=== PATIENT | female | born 1930 | race Hispanic/Latino ===

== ENCOUNTER 2018-03-20 12:25 | Emergency (ER) | payer MEDICARE ==
[2018-03-20 12:26] VITALS: BMI 19.5
[2018-03-20 12:53] VITALS: O2SAT 99
--- NOTE | 2018-03-20 14:32 | RAD ---
Date of service: 03/20/2018 HISTORY: Back pain COMPARISON: Frontal chest radiograph 08/19/2016. FINDINGS: LUNGS: No active pulmonary disease. Trace fibrosis left base laterally again evident. PLEURA: No significant pleural effusion identified, no pneumothorax apparent. CARDIOVASCULAR: Stable mild cardiomegaly. No pulmonary vascular congestion. OSSEOUS STRUCTURES: No significant abnormalities. VISUALIZED UPPER ABDOMEN: Limited left hemidiaphragm elevation reiterated. OTHER FINDINGS: None. IMPRESSION: Stable mild cardiomegaly. No interval acute cardiopulmonary disease appreciated.
[2018-03-20 15:48] LABS: GRAN # 8.94 (1.4-6.5); GRAN % 95.3 % (50.0-68.0); LYMPH # 0.4 (1.2-3.4); MEAN CELL VOLUME 94.8 fl (80.0-105.0); MEAN CORPUSCULAR HEMOGLOBIN 31.3 pg (25.0-35.0); MEAN CORPUSCULAR HGB CONC 33.1 g/dl (31.0-37.0); MEAN PLATELET VOLUME 9.2 fl (7.0-11.0); MONO # 0.1 (0.1-0.6); MONO % 0.7 % (1.0-6.0); PLATELET COUNT 347 10^3/uL (120.0-450.0); RBC 3.83 10^6/uL (3.5-6.1); RED CELL DISTRIBUTION WIDTH 14.7 % (11.5-14.5); WHITE BLOOD COUNT 9.4 10^3/ul (4.5-11.0)
[2018-03-20 15:54] LABS: ALB/GLOB RATIO 1.6 (1.1-1.8); ALBUMIN 4.2 g/dL (3.0-4.8); CALCIUM 9.9 mg/dL (8.4-10.5)
[2018-03-20 16:09] LABS: INR 1.02; PARTIAL THROMBOPLASTIN TIME 23.8 Seconds (25.1-36.5); PROTHROMBIN TIME 11.6 SECONDS (9.4-12.5)
[2018-03-20 16:36] LABS: NEUTROPHIL 93 % (50.0-70.0)
[2018-03-20 16:37] LABS: ANISOCYTOSIS SLIGHT; LYMPHOCYTE 6 % (22.0-35.0); MONOCYTE 1 % (1.0-6.0); OVALOCYTES SLIGHT; PLATELET ESTIMATE NORMAL (NORMAL); TOXIC GRANULATION SLIGHT
--- NOTE | 2018-03-20 17:19 | CT ---
Date of service: 03/20/2018 PROCEDURE: CT Abdomen and Pelvis without intravenous contrast HISTORY: ABDOMINAL PAIN COMPARISON: 01/05/2015 TECHNIQUE: Without contrast.. Contrast dose: 0 Radiation dose: Total exam DLP = 505.46 mGy-cm. This CT exam was performed using one or more of the following dose reduction techniques: Automated exposure control, adjustment of the mA and/or kV according to patient size, and/or use of iterative reconstruction technique. FINDINGS: LOWER THORAX: Unremarkable. LIVER: Unremarkable. No gross lesion or ductal dilatation. GALLBLADDER AND BILE DUCTS: Dependent high attenuation material within the gallbladder may reflect small calculi. See CT so mural thickening. No pericholecystic fluid. PANCREAS: Unremarkable. No gross lesion or ductal dilatation. SPLEEN: Unremarkable. ADRENALS: Unremarkable. No mass. KIDNEYS AND URETERS: Unremarkable. No hydronephrosis. No solid mass. VASCULATURE: Unremarkable. No aortic aneurysm. BOWEL: Left lower quadrant colostomy. Partial left hemicolectomy. Diverticulosis of the superior rectum/sigmoid colon. No bowel obstruction. There is a small bowel anastomosis in the lateral most right abdomen. APPENDIX: Not identified. PERITONEUM: Unremarkable. No free fluid. No free air. LYMPH NODES: Unremarkable. No enlarged lymph nodes. BLADDER: Grossly limited due to beam hardening artifact arising from bilateral hip prostheses. REPRODUCTIVE: Postmenopausal uterus BONES: No acute fracture. OTHER FINDINGS: None. IMPRESSION: No acute abnormality. Partial left hemicolectomy with left lower quadrant colostomy. No bowel obstruction. Possible cholelithiasis without evidence of cholecystitis.
--- NOTE | 2018-03-20 17:44 | ED PDOC ---
Arrival/HPI - General Chief Complaint: Back Pain Time Seen by Provider: 03/20/18 13:05 Historian: Patient, Family - History of Present Illness Narrative History of Present Illness (Text): 03/20/18 18:07 87yr old female with right buttock pain x 4 days. pt states she has been having slight pain in the buttock, but worsened over the past 4 days. pt denies numbness, weakness or tingling in the extremities. Patient states that she only has pain if she is moving. Patient states when she lays down there is no pain. Patient states when she moves from a laying to sitting position she has pain. Patient states once she is in a sitting position there is no pain. Patient denies chest pain or shortness of breath. She denies abdominal pain. She denies nausea vomiting diarrhea or constipation. She denies upper back pain. Patients family member state they are concerned about the abdomen because last time she had right buttocks pain she had a perforated bowel. Patient states she is scheduled for an MRI of the lumbar spine today. Patient states yesterday she received pain injection into the right buttocks from her pain management doctor without improvement in her symptoms. pt denies any trauma or injury. pt denies bladder or bowel incontinence. pt denies numbness, weakness, tingling in the extremity. no other complaints. Time/Duration: Other (4 days) Symptom Onset: Gradual Symptom Course: Worsening Quality: Aching Severity Level: Moderate Context: Other (worse with movement) Past Medical History - Provider Review Nursing Documentation Reviewed: Yes - Travel History Have you recently traveled outside [place] w/in the past 3 mons?: No - Infectious Disease Hx of Infectious Diseases: None - Tetanus Immunization Tetanus Immunization: Unknown - Reproductive Menopause: Yes - Cardiac Hx Cardiac Disorders: Yes Hx Hypertension: Yes - Pulmonary Hx Respiratory Disorders: No - Neurological Hx Neurological Disorder: Yes (syncope) - HEENT Hx HEENT Disorder: No - Renal Hx Renal Disorder: No - Endocrine/Metabolic Hx Endocrine Disorders: Yes Hx Systemic Lupus Erythematosus: Yes - Hematological/Oncological Hx Blood Disorders: No - Integumentary Hx Dermatological Disorder: No - Musculoskeletal/Rheumatological Hx Musculoskeletal Disorders: Yes (rheumatoid arthritis) Hx Falls: Yes Hx Fractures: Yes (right humerus 4 wks ago) Hx Unsteady Gait: Yes - Gastrointestinal Hx Gastrointestinal Disorders: Yes (colostomy drains well post sbo) - Genitourinary/Gynecological Hx Genitourinary Disorders: No - Psychiatric Hx Psychophysiologic Disorder: No Hx Substance Use: No - Surgical History Other/Comment: b/lle hip replacement and left knee replacement 10 y ago, picc line in and out keerthi, small bowel resecton lysis of adhesions omentum patch gi lap 01/08/2015, ct scan guided drainage of sigmoid diverticular abcess - Anesthesia Hx Anesthesia: Yes Hx Anesthesia Reactions: No Hx Malignant Hyperthermia: No - Suicidal Assessment Feels Threatened In Home Enviroment: No Family/Social History - Physician Review Nursing Documentation Reviewed: Yes Family/Social History: Unknown Family HX Smoking Status: Never Smoked Hx Alcohol Use: No (occasional social) Hx Substance Use: No Hx Substance Use Treatment: No Allergies/Home Meds Allergies/Adverse Reactions: Allergies No Known Allergies Allergy (Verified 03/20/18 12:53) Home Medications: Home Meds Medication Instructions Recorded Confirmed Verapamil [Calan SR Tab] 90 mg PO DAILY 09/20/14 03/20/18 predniSONE [predniSONE Tab] 5 mg PO DAILY 07/16/16 03/20/18 Methotrexate 8 mg PO QWK 08/19/16 03/20/18 Review of Systems - Review of Systems Constitutional: absent: Fatigue, Fevers Respiratory: absent: SOB, Cough Cardiovascular: absent: Chest Pain, Palpitations Gastrointestinal: absent: Abdominal Pain, Constipation, Diarrhea, Nausea, Vomiting Genitourinary Female: absent: Dysuria, Frequency, Hematuria, Urine Output Changes Musculoskeletal: Arthralgias (right buttock pain), Back Pain. absent: Neck Pain Skin: absent: Rash, Pruritis Neurological: absent: Headache, Dizziness Psychiatric: absent: Anxiety, Depression Physical Exam Vital Signs Reviewed: Yes Vital Signs Temp Pulse Resp BP Pulse Ox 03/20/18 18:05 98.9 F 93 H 19 99 03/20/18 16:10 98.9 F 98 H 18 134/82 99 03/20/18 12:50 99.4 F 92 H 18 148/75 99 Temperature: Afebrile Blood Pressure: Normal Pulse: Regular Respiratory Rate: Normal Appearance: Positive for: Well-Appearing, Non-Toxic, Comfortable Pain Distress: None Mental Status: Positive for: Alert and Oriented X 3 - Systems Exam Head: Present: Atraumatic Mouth: Present: Moist Mucous Membranes Neck: Present: Normal Range of Motion Respiratory/Chest: Present: Clear to Auscultation, Good Air Exchange. No: Respiratory Distress, Accessory Muscle Use Cardiovascular: Present: Regular Rate and Rhythm, Normal S1, S2. No: Murmurs Abdomen: No: Tenderness, Distention, Rebound, Guarding Back: Present: Normal Inspection, Other (+ ttp over right buttock; no edema, no erythema; no ecchymosis; full rom of hip/leg. pelvis stable. ). No: Midline Tenderness, Paraspinal Tenderness Upper Extremity: Present: Normal ROM Lower Extremity: Present: NORMAL PULSES, Normal ROM, Tenderness (+ ttp over right buttock. no edema. no erythema. no ecchymosis; full rom. sensation and distal pulses intact; cap refill <2. ) Medical Decision Making ED Course and Treatment: 87 yr old female with 4 day history of right buttock pain. pt was seen by pain management doctor and given referral for MRI of LS spine. presents with family concern for abdominal abnormality causing pain. cbc;wnl cmp wnl cxr; wnl CT abd/pelvis; FINDINGS: LOWER THORAX: Unremarkable. LIVER: Unremarkable. No gross lesion or ductal dilatation. GALLBLADDER AND BILE DUCTS: Dependent high attenuation material within the gallbladder may reflect small calculi. See CT so mural thickening. No pericholecystic fluid. PANCREAS: Unremarkable. No gross lesion or ductal dilatation. SPLEEN: Unremarkable. ADRENALS: Unremarkable. No mass. KIDNEYS AND URETERS: Unremarkable. No hydronephrosis. No solid mass. VASCULATURE: Unremarkable. No aortic aneurysm. BOWEL: Left lower quadrant colostomy. Partial left hemicolectomy. Diverticulosis of the superior rectum/sigmoid colon. No bowel obstruction. There is a small bowel anastomosis in the lateral most right abdomen. APPENDIX: Not identified. PERITONEUM: Unremarkable. No free fluid. No free air. LYMPH NODES: Unremarkable. No enlarged lymph nodes. BLADDER: Grossly limited due to beam hardening artifact arising from bilateral hip prostheses. REPRODUCTIVE: Postmenopausal uterus BONES: no acute fracture. OTHER FINDINGS: None. IMPRESSION: No acute abnormality. Partial left hemicolectomy with left lower quadrant colostomy. No bowel obstruction. Possible cholelithiasis without evidence of cholecystitis. pt does not want any medications for pain. pt states she doesnt have pain unless she changes position. pt does not want to wait in ER for UA results. will d/c home and call patient with urine results. advised patient to f/u with pmd, pain management and orthopedist. advised immediate return if symptoms worsen, persist or if new symptoms develop. advised patient of gallstones on CT. Patient verbalizes understanding of discharge instructions and need for immediate followup. all aspects of this case were discussed the attending of record. impression; buttock pain, back pain Follow up with the primary care physician within the next 2 days follow up with the back specialist within the next 2 days. return immediately if symptoms worsen,persist or if new symptoms develop. 03/20/18 18:18 spoke with the patients daughter regarding UA: concerning for possible UTI. rx for keflex transmitted electronically to pharmacy. also advised f/u with orthopedist for right buttock pain. consider screws as cause of buttock pain. - Lab Interpretations Lab Results: 03/20/18 15:37 03/20/18 15:37 Lab Results 03/20/18 17:42: Urine Color Yellow, Urine Appearance Clear, Urine pH 6.0, Ur Specific [place] 1.010, Urine Protein Negative, Urine Glucose (UA) Negative, Urine Ketones Trace H, Urine Blood Negative, Urine Nitrate Negative, Urine Bilirubin Negative, Urine Urobilinogen 0.2, Ur Leukocyte Esterase Trace H, Urine RBC 0 - 2, Urine WBC 2 - 5, Ur Epithelial Cells 3 - 4, Urine Bacteria Mod 03/20/18 15:37: WBC 9.4 D, RBC 3.83, Hgb 12.0, Hct 36.3, MCV 94.8, MCH 31.3, MCHC 33.1, RDW 14.7 H, Plt Count 347, MPV 9.2, Gran % 95.3 H, Lymph % (Auto) 4.0 L, Pierce % (Auto) 0.7 L, Eos % (Auto) 0.0 L, Baso % (Auto) 0.0, Gran # 8.94 H , Lymph # (Auto) 0.4 L, Pierce # (Auto) 0.1, Eos # (Auto) 0.0, Baso # (Auto) 0.00 , Neutrophils % (Manual) 93 H, Lymphocytes % (Manual) 6 L, Monocytes % (Manual) 1, Toxic Granulation Slight, Platelet Evaluation Normal, Anisocytosis (manual) Slight, Ovalocytes Slight 03/20/18 15:37: Sodium 143, Potassium 4.2, Chloride 105, Carbon Dioxide 24, Anion Gap 18, BUN 38 H, Creatinine 1.2, Est GFR ( Amer) 52, Est GFR (Non- Af Amer) 43, Random Glucose 98, Calcium 9.9, Total Bilirubin 0.9, AST 32, ALT 25 , Alkaline Phosphatase 61, Total Protein 6.7, Albumin 4.2, Globulin 2.6, Albumin /Globulin Ratio 1.6 03/20/18 15:37: PT 11.6, INR 1.02, APTT 23.8 L - RAD Interpretation Radiology Orders: 03/20/18 13:31 CHEST PORTABLE [RAD] Stat 03/20/18 16:06 ABD & PELVIS W/O PO OR IV CONT [CT] Stat Disposition/Present on Arrival - Present on Arrival Any Indicators Present on Arrival: No History of DVT/PE: No History of Uncontrolled Diabetes: No Urinary Catheter: No History of Decub. Ulcer: No History Surgical Site Infection Following: None - Disposition Have Diagnosis and Disposition been Completed?: Yes Diagnosis: Right buttock pain, Back pain Disposition: HOME/ ROUTINE Disposition Time: 17:43 Patient Plan: Discharge Patient Problems: Current Active Problems Problem Status Onset Right buttock pain Acute Back pain Acute Condition: GOOD Discharge Instructions (ExitCare): Low Back Pain (DC) Additional Instructions: Follow up with the primary care physician within the next 2 days follow up with the back specialist within the next 2 days. return immediately if symptoms worsen,persist or if new symptoms develop. Prescriptions: Cephalexin [Keflex] 500 mg PO BID #14 capsule Referrals: Nehemias Cai MD [Primary Care Provider] - Follow up with primary Omid Hoyos MD [Staff Provider] - Follow up with primary Sudarshan Arevalo MD [Staff Provider] - Follow up with primary Forms: [employer] (Vietnamese)
[2018-03-20 17:51] LABS: URINE BILIRUBIN NEGATIVE (NEGATIVE); URINE BLOOD NEGATIVE (NEGATIVE); URINE GLUCOSE (UA) NEGATIVE (NEGATIVE); URINE LEUKOCYTE ESTERASE TRACE Leu/uL (NEGATIVE); URINE PROTEIN NEGATIVE mg/dL (<30 mg/dL); URINE UROBILINOGEN 0.2 E.U./dL (<1 E.U./dL)
[2018-03-20 17:54] LABS: URINE COLOR YELLOW (YELLOW)
[2018-03-20 17:55] LABS: URINE APPEARANCE CLEAR (CLEAR)
[2018-03-20 18:03] LABS: URINE BACTERIA MOD (NEG); URINE RBC 0 - 2 /hpf (0-2)
[2018-03-20 18:06] VITALS: BP 134/82; PULSE 93; RESP 19; TEMP 98.9
--- NOTE | 2018-03-21 10:18 | CARD ---
APPROVED REPORT Date of service: 03/20/2018 EKG Measurement Heart [id number] <Conclusion> Sinus bradycardia Nonspecific ST and T wave abnormality Abnormal ECG
== END 2018-03-20 18:06 | disposition home or self-care (01) ==
LOC: ED 12:25
DX: M54.9 Dorsalgia, unspecified (principal); M79.1 Myalgia; I10 Essential (primary) hypertension; M06.9 Rheumatoid arthritis, unspecified; M32.9 Systemic lupus erythematosus, unspecified

== ENCOUNTER 2018-04-03 15:18 | Inpatient (IN) | payer OTHER, MEDICARE ==
[2018-03-31 15:28] VITALS: BMI 19.7
[2018-04-03] MEDS ORDERED: Pneumococcal 23-Valent Vaccine IM ONE (21:21)
[2018-04-04] MEDS: Pantoprazole 40 mg EC Tab PO SCH (06:00)
--- NOTE | 2018-04-04 09:13 | HP ---
CHIEF COMPLAINT AND HISTORY OF PRESENT ILLNESS: This is an 87-year-old female who had come into the hospital because of acute back pain. The patient does have a history of DJD with multilevel disk herniations. She also has arthritis secondary to rheumatoid and lupus. The patient states that she has difficulty ambulating because of the pain. She was brought into the Transitional Care Unit for rehab. She has not been complaining of any headache or dizziness. No nausea. No vomiting. She has no pain when she is lying in bed, but she does have pain when she walks. It is about 4-5/10. She otherwise feels well. Has no complaints of any headaches or dizziness. REVIEW OF SYSTEMS: All other review of symptoms are within normal limits except that was mentioned. PAST MEDICAL HISTORY: Hypertension, lupus, rheumatoid arthritis, and falls. PAST SURGICAL HISTORY: Bilateral hip replacements, left knee replacement, and small bowel obstruction. ALLERGIES: NO KNOWN DRUG ALLERGIES. HOME MEDICATIONS: Have been reviewed on the SEP. PHYSICAL EXAMINATION: VITAL SIGNS: Temperature is 98.4, pulse of 47, blood pressure is 122/68. GENERAL: The patient lying in bed, uncomfortable, and in no acute distress. HEENT: Atraumatic and normocephalic. Anicteric sclerae. Moist mucosa. [place] conjunctivae. No oral lesions. NECK: No JVD, anterior and posterior adenopathy, thyromegaly, or bruits. CARDIOVASCULAR: S1 and S2 regular. No murmur, rubs, or gallop. LUNGS: Clear to auscultation bilaterally. No wheezes, rales, or rhonchi. ABDOMEN: Bowel sounds are positive. Soft, nontender and nondistended. No hepatosplenomegaly. No rebound and no guarding. EXTREMITIES: No cyanosis, clubbing, or edema. NEUROLOGIC: No facial asymmetry. Tongue is midline. No uvula deviation. Power is 5/5 upper extremity and lower extremity. Sensation intact in upper extremity and lower extremity. PSYCHIATRIC: She is awake, alert and oriented x3. No anxiety or depression. She has normal affect. GENITOURINARY: No CVA tenderness. VASCULAR: 2+ pulses in the carotid pulses and pedal pulses. SKIN: No erythema or nodules SPINE: Shows normal curvature. ASSESSMENT: 1. Acute back pain secondary to degenerative joint disease. 2. Rheumatoid arthritis. 3. Lupus. 4. Osteoarthritis. 5. Gait dysfunction. 6. Hypertension. PLAN: The patient is currently comfortable. She is going to be on Colace for constipation. She is currently on Lyrica for neuropathy. The patient is on ibuprofen for pain. She is going to be on prednisone daily, this is on chronic. She is on a heart-healthy diet. We will also place her on calcium and vitamin D to prevent the risk of osteoporosis given that she is on chronic prednisone. She is going to be in the Transitional Care Unit for next week, getting physical therapy. Sai Ham MD
[2018-04-04] MEDS: Verapamil 180 mg ER Tab PO SCH (09:30)
[2018-04-04] MEDS: Lidocaine 5% Patch TD SCH (09:31)
[2018-04-04] MEDS: Calcium-Vit D 250 mg-125 Units Tab UD PO SCH (10:36)
[2018-04-05] MEDS: Pantoprazole 40 mg EC Tab PO SCH (05:11)
[2018-04-05] MEDS: Calcium-Vit D 250 mg-125 Units Tab UD PO SCH (09:26)
[2018-04-05] MEDS: Verapamil 180 mg ER Tab PO SCH (09:27)
[2018-04-05] MEDS: Lidocaine 5% Patch TD SCH (09:28)
[2018-04-06] MEDS: Pantoprazole 40 mg EC Tab PO SCH (05:29)
[2018-04-06] MEDS: Verapamil 180 mg ER Tab PO SCH ×3 (06:50→11:00)
--- NOTE | 2018-04-06 08:55 | PN ---
DATE: 04/06/2018 SUBJECTIVE: The patient has no complaints of any chest pain. No headaches or dizziness. She says she is working with physical therapy. She does get pain when she starts to walk, although it is tolerable. PHYSICAL EXAMINATION: VITAL SIGNS: Temperature is 97.5, pulse of 57, blood pressure 133/65. GENERAL: The patient is lying in bed, flat, comfortable. HEENT: No oral lesion. Anicteric sclerae. Moist mucosa. NECK: No JVD, adenopathy, or thyromegaly. CARDIOVASCULAR: S1 and S2, regular. No murmurs, rubs, or gallops. LUNGS: Clear to auscultation bilaterally. No wheeze, rales, or rhonchi. ABDOMEN: Bowel sounds are positive, soft, nontender and nondistended. EXTREMITIES: No cyanosis, clubbing, or edema. ASSESSMENT: 1. Acute back pain secondary to degenerative joint disease. 2. Rheumatoid arthritis. 3. Lupus. 4. Osteoarthritis. 5. Gait dysfunction. 6. Hypertension. PLAN: The patient is currently comfortable. She is going to continue verapamil. The patient is on lidocaine for her back pain. She is on Lyrica as well. She is going to continue Motrin as needed for pain. She is on prednisone daily. She is on Senokot for her constipation. We will also have her on calcium with vitamin D for her osteoporosis. She is on a heart-healthy diet. Sai Ham MD
[2018-04-06] MEDS: Calcium-Vit D 250 mg-125 Units Tab UD PO SCH (10:08)
[2018-04-06] MEDS: Lidocaine 5% Patch TD SCH (10:09)
[2018-04-06 16:14] VITALS: RESP 18
[2018-04-07] MEDS: Pantoprazole 40 mg EC Tab PO SCH (05:41)
[2018-04-07] MEDS: Verapamil 180 mg ER Tab PO SCH ×2 (05:42→17:19)
[2018-04-07] MEDS: Lidocaine 5% Patch TD SCH (09:40)
[2018-04-07] MEDS: Calcium-Vit D 250 mg-125 Units Tab UD PO SCH (09:41)
[2018-04-08] MEDS: Pantoprazole 40 mg EC Tab PO SCH (05:33)
[2018-04-08] MEDS: Calcium-Vit D 250 mg-125 Units Tab UD PO SCH (10:41)
[2018-04-08] MEDS: Verapamil 180 mg ER Tab PO SCH (10:44)
[2018-04-08] MEDS: Lidocaine 5% Patch TD SCH (10:49)
[2018-04-09] MEDS: Pantoprazole 40 mg EC Tab PO SCH (05:51)
[2018-04-09] MEDS: Verapamil 180 mg ER Tab PO SCH (09:43)
[2018-04-09] MEDS: Calcium-Vit D 250 mg-125 Units Tab UD PO SCH (09:48)
[2018-04-09] MEDS: Lidocaine 5% Patch TD SCH (09:50)
--- NOTE | 2018-04-09 14:30 | CP.PCM.PN ---
<Beau Taylor - Last Filed: 04/09/18 14:27> Subjective - Date & Time of Evaluation Date of Evaluation: 04/09/18 Time of Evaluation: 14:27 - Subjective Subjective: Patient seen and examined at bedside. Patient states she is doing well with no complaints. Denies chest pain, shortness of breath, nausea, vomiting, diarrhea, fever, chills. Objective - Vital Signs/Intake and Output Vital Signs (last 24 hours): Temp Pulse Resp BP Pulse Ox 98.3 F 50 L 18 127/67 96 04/08/18 16:00 04/09/18 09:43 04/08/18 16:00 04/09/18 09:43 04/08/18 16:00 - Medications Medications: Current Medications Calcium/Vitamin D (Oscal-D 250 Mg-125 Units Tab) 2 tab PO DAILY [facility] Last Admin: 04/09/18 09:48 Dose: 2 tab Docusate Sodium (Colace) 100 mg PO DAILY OG PRN Reason: Protocol Last Admin: 04/09/18 09:55 Dose: Not Given Ibuprofen (Motrin Tab) 600 mg PO Q6H PRN; Protocol PRN Reason: Pain, moderate (4-7) Last Admin: 04/09/18 10:16 Dose: 600 mg Lidocaine (Lidoderm) 1 ea TD DAILY OG PRN Reason: Protocol Last Admin: 04/09/18 09:50 Dose: 1 ea Lisinopril (Zestril) 10 mg PO DAILY OG Last Admin: 04/09/18 09:50 Dose: 10 mg Methotrexate (Methotrexate) 10 mg PO QWK OG Last Admin: 04/07/18 15:07 Dose: 10 mg Pantoprazole Sodium (Protonix Ec Tab) 40 mg PO 0600 OG PRN Reason: Protocol Last Admin: 04/09/18 05:51 Dose: 40 mg Prednisone (Prednisone Tab) 5 mg PO DAILY OG PRN Reason: Protocol Last Admin: 04/09/18 09:49 Dose: 5 mg Pregabalin (Lyrica) 50 mg PO HS OG PRN Reason: Protocol Last Admin: 04/08/18 21:39 Dose: 50 mg Sennosides (Senokot Tab) 8.6 mg PO DAILY OG PRN Reason: Protocol Last Admin: 04/09/18 09:49 Dose: 8.6 mg Verapamil HCl (Calan Sr Tab) 90 mg PO DAILY OG PRN Reason: Protocol Last Admin: 04/09/18 09:43 Dose: 90 mg - Constitutional Appears: Non-toxic, No Acute Distress - Head Exam Head Exam: ATRAUMATIC, NORMAL INSPECTION, NORMOCEPHALIC - ENT Exam ENT Exam: Mucous Membranes Moist - Respiratory Exam Respiratory Exam: Clear to Ausculation Bilateral, NORMAL BREATHING PATTERN - Cardiovascular Exam Cardiovascular Exam: RRR, +S1, +S2 - GI/Abdominal Exam GI & Abdominal Exam: Soft, Normal Bowel Sounds. absent: Tenderness - Extremities Exam Extremities Exam: Normal Inspection - Neurological Exam Neurological Exam: Alert, Awake, Oriented x3 - Psychiatric Exam Psychiatric exam: Normal Affect, Normal Mood - Skin Skin Exam: Intact, Normal Color, Warm Assessment and Plan - Assessment and Plan (Free Text) Plan: 1. Acute back pain secondary to degenerative joint disease 2. Rheumatoid arthritis 3. Lupus 4. Osteoarthritis 5. Gait dysfunction 6. Hypertension Patient is currently resting well with no complaints at this time. She is currently on methotrexate and prednisone for her rheumatoid and lupus. Patient is using Motrin for back pain. Patient will continue on her current medical regimen. We will continue to monitor closely. Brandon, PGY-3 <Sai Ham S - Last Filed: 04/09/18 20:29> Objective - Vital Signs/Intake and Output Vital Signs (last 24 hours): Temp Pulse Resp BP Pulse Ox 97.4 F L 54 L 18 108/56 L 96 04/09/18 16:00 04/09/18 16:00 04/09/18 16:00 04/09/18 16:00 04/09/18 16:00 - Medications Medications: Current Medications Calcium/Vitamin D (Oscal-D 250 Mg-125 Units Tab) 2 tab PO DAILY OG Last Admin: 04/09/18 09:48 Dose: 2 tab Docusate Sodium (Colace) 100 mg PO DAILY OG PRN Reason: Protocol Last Admin: 04/09/18 09:55 Dose: Not Given Ibuprofen (Motrin Tab) 600 mg PO Q6H PRN; Protocol PRN Reason: Pain, moderate (4-7) Last Admin: 04/09/18 10:16 Dose: 600 mg Lidocaine (Lidoderm) 1 ea TD DAILY OG PRN Reason: Protocol Last Admin: 04/09/18 09:50 Dose: 1 ea Lisinopril (Zestril) 10 mg PO DAILY OG Last Admin: 04/09/18 09:50 Dose: 10 mg Methotrexate (Methotrexate) 10 mg PO QWK OG Last Admin: 04/07/18 15:07 Dose: 10 mg Pantoprazole Sodium (Protonix Ec Tab) 40 mg PO 0600 OG PRN Reason: Protocol Last Admin: 04/09/18 05:51 Dose: 40 mg Prednisone (Prednisone Tab) 5 mg PO DAILY OG PRN Reason: Protocol Last Admin: 04/09/18 09:49 Dose: 5 mg Pregabalin (Lyrica) 50 mg PO HS OG PRN Reason: Protocol Last Admin: 04/08/18 21:39 Dose: 50 mg Sennosides (Senokot Tab) 8.6 mg PO DAILY OG PRN Reason: Protocol Last Admin: 04/09/18 09:49 Dose: 8.6 mg Verapamil HCl (Calan Sr Tab) 90 mg PO DAILY OG PRN Reason: Protocol Last Admin: 04/09/18 09:43 Dose: 90 mg Assessment and Plan - Assessment and Plan (Free Text) Plan: Pt seen and examined. I have reviewed the note of the medical territory manager and agree with it. I have discussed the assessment and plan with the resident. I have reviewed the patient's labs and medications. Pt with stable back pain. She states pain is controlled. She was restarted on methotrexate. She is interested going home in 1-2 days.
[2018-04-10] MEDS: Pantoprazole 40 mg EC Tab PO SCH (05:22)
[2018-04-10] MEDS: Verapamil 180 mg ER Tab PO SCH (08:10)
[2018-04-10] MEDS: Calcium-Vit D 250 mg-125 Units Tab UD PO SCH (10:07)
[2018-04-10] MEDS: Lidocaine 5% Patch TD SCH (10:14)
[2018-04-10 11:41] VITALS: BP 138/66; PULSE 66; TEMP 97.1; O2SAT 99
== END 2018-04-10 14:09 | disposition home or self-care (01) | DRG 552 ==
LOC: TRCU 15:18
PROVIDERS: ADMIT Internal Medicine Nephrology; ATTEND Internal Medicine Nephrology
PROC: F07Z9ZZ Gait Training/Functional Ambulation Treatment (ICD-10-PCS; principal; 2018-04-04)
PROC: F08Z4ZZ Home Management Treatment (ICD-10-PCS; 2018-04-04)
DX: M47.9 Spondylosis, unspecified (principal); R26.2 Difficulty in walking, not elsewhere classified; M32.9 Systemic lupus erythematosus, unspecified; I10 Essential (primary) hypertension; M06.9 Rheumatoid arthritis, unspecified; Z96.643 Presence of artificial hip joint, bilateral; Z96.652 Presence of left artificial knee joint; Z93.3 Colostomy status

== ENCOUNTER 2018-08-13 12:46 | Inpatient (IN) | payer MEDICARE ==
[2018-08-13 13:05] VITALS: BMI 21.0
[2018-08-13 14:09] LABS: BASO # 0.02 K/mm3 (0.0-2.0); BASO % 0.2 % (0.0-3.0); EOS % 0.1 % (1.5-5.0); GRAN # 10.78 (1.4-6.5); GRAN % 93.4 % (50.0-68.0); HEMOGLOBIN 12.1 g/dL (12.0-16.0); LYMPH # 0.5 (1.2-3.4); MEAN CELL VOLUME 95.4 fl (80.0-105.0); MEAN CORPUSCULAR HGB CONC 32.5 g/dl (31.0-37.0); MEAN PLATELET VOLUME 9.1 fl (7.0-11.0); MONO # 0.3 (0.1-0.6); MONO % 2.3 % (1.0-6.0); PLATELET COUNT 345 10^3/uL (120.0-450.0); RED CELL DISTRIBUTION WIDTH 14.9 % (11.5-14.5); WHITE BLOOD COUNT 11.5 10^3/uL (4.5-11.0)
[2018-08-13 14:15] LABS: ALB/GLOB RATIO 1.2 (1.1-1.8); ALBUMIN 3.7 g/dL (3.0-4.8); ALT/SGPT 21 U/L (7-56); AST/SGOT 24 U/L (14-36); BLOOD UREA NITROGEN 27 mg/dL (7-21); CALCIUM 9.6 mg/dL (8.4-10.5); GFR NON-AFRICAN AMERICAN 53; LIPASE 63 U/L (23-300)
[2018-08-13] MEDS: Sodium Chloride 0.9% 1,000 ML IV SCH ×2 (14:18→22:31)
[2018-08-13 14:27] LABS: LYMPHOCYTE 2 % (22.0-35.0); MONOCYTE 2 % (1.0-6.0); NEUTROPHIL 96 % (50.0-70.0); PLATELET ESTIMATE NORMAL (NORMAL)
[2018-08-13 14:35] LABS: PH,URINE 7.5 (4.7-8.0); URINE BILIRUBIN NEGATIVE (NEGATIVE); URINE BLOOD NEGATIVE (NEGATIVE); URINE GLUCOSE (UA) NEGATIVE (NEGATIVE); URINE LEUKOCYTE ESTERASE MODERATE Leu/uL (NEGATIVE); URINE PROTEIN 30 mg/dL (<30 mg/dL); URINE UROBILINOGEN 0.2 E.U./dL (<1 E.U./dL)
[2018-08-13 14:38] LABS: URINE COLOR YELLOW (YELLOW)
[2018-08-13 14:39] LABS: URINE APPEARANCE CLEAR (CLEAR)
[2018-08-13 14:52] LABS: URINE AMORPHOUS SEDIMENT FEW /hpf; URINE BACTERIA LARGE /hpf; URINE WBC 25 - 30 /hpf (0-6)
[2018-08-13] MEDS ORDERED: Iohexol 350 MG/100 ML VIAL ONE (15:25)
--- NOTE | 2018-08-13 16:36 | CT ---
Date of service: 08/13/2018 PROCEDURE: CT Abdomen and Pelvis with contrast HISTORY: lower abdominal pain COMPARISON: 03/20/2018 TECHNIQUE: Contrast dose: 100 cc of Omni 350 Radiation dose: Total exam DLP = 360.79 mGy-cm. This CT exam was performed using one or more of the following dose reduction techniques: Automated exposure control, adjustment of the mA and/or kV according to patient size, and/or use of iterative reconstruction technique. FINDINGS: LOWER THORAX: Unremarkable. LIVER: Unremarkable. No gross lesion or ductal dilatation. GALLBLADDER AND BILE DUCTS: Unremarkable. PANCREAS: Unremarkable. No gross lesion or ductal dilatation. SPLEEN: Unremarkable. ADRENALS: Unremarkable. No mass. KIDNEYS AND URETERS: Unremarkable. No hydronephrosis. No solid mass. VASCULATURE: Unremarkable. No aortic aneurysm. No aortic atherosclerotic calcification or mural plaque present. BOWEL: There is a colostomy in the left lower quadrant. A suture line can be seen in the sigmoid colon. There is a moderate amount of free fluid in the pelvis. The etiology of this is uncertain. There is no air within the collection to suggest abscess. It is unlikely that the fluid is from an ovarian cyst in this age group. Clinical correlation and follow-up is recommended. These findings were discussed with Dr. García. APPENDIX: Normal appendix. PERITONEUM: Unremarkable. No free fluid. No free air. LYMPH NODES: Unremarkable. No enlarged lymph nodes. BLADDER: The bladder is not visualized due to streak artifact from bilateral hip prostheses REPRODUCTIVE: Unremarkable. BONES: No acute fracture. OTHER FINDINGS: None. IMPRESSION: There is a colostomy in the left lower quadrant. A suture line can be seen in the sigmoid colon. There is a moderate amount of free fluid in the pelvis. The etiology of this is uncertain. There is no air within the collection to suggest abscess. It is unlikely that the fluid is from an ovarian cyst in this age group. Clinical correlation and follow-up is recommended.
[2018-08-13] MEDS ORDERED: Ciprofloxacin 400mg/200ml D5W 400 MG/200 ML BAG IVPB STA (17:11)
[2018-08-13] MEDS ORDERED: metroNIDAZOLE IV 500 mg/100 ml 500 MG/100 ML BAG IVPB STA (17:11)
--- NOTE | 2018-08-13 18:26 | CARD ---
APPROVED REPORT Date of service: 08/13/2018 EKG Measurement Heart [id number] <Conclusion> Normal sinus rhythm Nonspecific ST abnormality Abnormal ECG
--- NOTE | 2018-08-13 19:05 | ED PDOC ---
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 Pt notes a baseline diminished appetite but no acute change. Pt denies any recent travel, nausea, vomiting, diarrhea, blood in stool, blood in urine, black tarry stools, constipation, chest pain, fevers, cough, or any other complaints. PMD: Nehemias Vanessa Time/Duration: Other (Pt notes onset as the past several days) Symptom Onset: Sudden Symptom Course: Unchanged Activities at Onset: Light Past Medical History - Provider Review Nursing Documentation Reviewed: Yes - Infectious Disease Hx of Infectious Diseases: None - Tetanus Immunization Tetanus Immunization: Unknown - Cardiac Hx Cardiac Disorders: Yes Hx Hypertension: Yes - Pulmonary Hx Respiratory Disorders: No - Neurological Hx Neurological Disorder: Yes (syncope) - HEENT Hx HEENT Disorder: No - Renal Hx Renal Disorder: No - Endocrine/Metabolic Hx Endocrine Disorders: Yes Hx Systemic Lupus Erythematosus: Yes - Hematological/Oncological Hx Blood Disorders: Yes Hx Anemia: Yes - Integumentary Hx Dermatological Disorder: Yes Other/Comment: multiple skin discolorations ble - Musculoskeletal/Rheumatological Hx Arthritis: Yes Hx Rheumatoid Arthritis: Yes - Gastrointestinal Hx Gastrointestinal Disorders: Yes (BOWEL OBSTRUCTION,RECTAL BLEED,DIVERTICULITIS,COLOSTOMY) - Genitourinary/Gynecological Hx Genitourinary Disorders: Yes (URINARY URGENCY) - Psychiatric Hx Psychophysiologic Disorder: No Hx Substance Use: No - Surgical History Other/Comment: b/le hip replacement and left knee replacement , picc line in and out keerthi, small bowel resecton lysis of adhesions omentum patch gi lap 01/08/2015, ct scan guided drainage of sigmoid diverticular abcess - Anesthesia Hx Anesthesia: Yes Hx Anesthesia Reactions: No Hx Malignant Hyperthermia: No - Suicidal Assessment Feels Threatened In Home Enviroment: No Family/Social History - Physician Review Nursing Documentation Reviewed: Yes Family/Social History: No Known Family HX Smoking Status: Never Smoked Hx Alcohol Use: Yes Frequency of alcohol use: Socially Hx Substance Use: No Hx Substance Use Treatment: No Allergies/Home Meds Allergies/Adverse Reactions: Allergies No Known Allergies Allergy (Verified 08/13/18 17:45) Home Medications: Home Meds Medication Instructions Recorded Confirmed Verapamil [Calan SR Tab] 90 mg PO DAILY 09/20/14 08/13/18 predniSONE [predniSONE Tab] 5 mg PO DAILY 07/16/16 08/13/18 Methotrexate 8 mg PO QWK 08/19/16 08/13/18 Review of Systems - Physician Review All systems were reviewed & negative as marked: Yes - Review of Systems Constitutional: Normal. absent: Fevers Respiratory: Normal. absent: Cough Gastrointestinal: Abdominal Pain (pt notes lower abdominal pain ), Appetite Changes (pt notes a baseline diminished appetite, but no acute change). absent: Normal, Stool Changes, Constipation, Diarrhea, Nausea, Vomiting Physical Exam Vital Signs Reviewed: Yes Vital Signs Temp Pulse Resp BP Pulse Ox 08/13/18 18:12 78 20 137/60 96 08/13/18 16:50 98.4 F 94 H 18 137/71 97 08/13/18 13:03 98.2 F 93 H 18 135/76 96 Temperature: Afebrile Blood Pressure: Normal Pulse: Tachycardic Appearance: Positive for: Well-Appearing, Non-Toxic Pain Distress: Mild Mental Status: Positive for: Alert and Oriented X 3 - Systems Exam Head: Present: Atraumatic, Normocephalic Pupils: Present: PERRL Extroacular Muscles: Present: EOMI Conjunctiva: Present: Normal Ears: Present: Normal, NORMAL TM Mouth: Present: Moist Mucous Membranes Neck: Present: Normal Range of Motion Respiratory/Chest: Present: Clear to Auscultation, Good Air Exchange. No: Respiratory Distress, Accessory Muscle Use Cardiovascular: Present: Regular Rate and Rhythm, Normal S1, S2. No: Murmurs Abdomen: Present: Tenderness (lower abdominal tenderness noted ), Normal Bowel Sounds, Other (left side colostomy noted, no skin breakdown, trace BM in the bag). No: Distention Back: Present: Normal Inspection Upper Extremity: Present: Normal Inspection. No: Cyanosis, Edema Lower Extremity: Present: Normal Inspection. No: Edema Neurological: Present: GCS=15, CN II-XII Intact, Speech Normal Skin: Present: Warm, Dry, Normal Color. No: Rashes Psychiatric: Present: Alert, Oriented x 3, Normal Insight, Normal Concentration Medical Decision Making ED Course and Treatment: 08/13/18 13:25 Impression: 88 year old female presents to the emergency department for lower abdominal pain, increasing in severity over the past several days. Differential Diagnosis included but are not limited to: Plan: -- CT of Abdomen & Pelvis, IV contrast only -- EKG -- Labs -- IV fluids -- Urine culture -- Urinalysis w/micro -- Reassess and disposition Prior Visits: Notes and results from previous visits were reviewed. Patient was last seen in the emergency department on 03/31/18 for intractable back pain for 15 days prior to arrival. Pt was hospitalized in fair condition. Progress Notes: 08/13/[address] Ham, reviewed case including findings on CAT scan. Pt admitted for IV antibiotics. Surgical consult ordered. - Lab Interpretations Lab Results: Total Bilirubin 0.8 mg/dL (0.2-1.3) 08/13/18 13:50 AST 24 U/L (14-36) 08/13/18 13:50 ALT 21 U/L (7-56) 08/13/18 13:50 Alkaline Phosphatase 68 U/L (38-126) 08/13/18 13:50 Total Protein 6.7 g/dL (5.8-8.3) 08/13/18 13:50 Albumin 3.7 g/dL (3.0-4.8) 08/13/18 13:50 Globulin 3.0 gm/dL 08/13/18 13:50 Albumin/Globulin Ratio 1.2 (1.1-1.8) 08/13/18 13:50 Lipase 63 U/L (23-300) 08/13/18 13:50 Urine Color Yellow (YELLOW) 08/13/18 14:00 Urine Appearance Clear (CLEAR) 08/13/18 14:00 Urine pH 7.5 (4.7-8.0) 08/13/18 14:00 Ur Specific [place] 1.020 (1.005-1.035) 08/13/18 14:00 Urine Protein 30 mg/dL (<30 mg/dL) H 08/13/18 14:00 Urine Glucose (UA) Negative mg/dL (NEGATIVE) 08/13/18 14:00 Urine Ketones Trace mg/dL (NEGATIVE) H 08/13/18 14:00 Urine Blood Negative (NEGATIVE) 08/13/18 14:00 Urine Nitrate Negative (NEGATIVE) 08/13/18 14:00 Urine Bilirubin Negative (NEGATIVE) 08/13/18 14:00 Urine Urobilinogen 0.2 E.U./dL (<1 E.U./dL) 08/13/18 14:00 Ur Leukocyte Esterase Moderate [place]/uL (NEGATIVE) H 08/13/18 14:00 Urine RBC 1 - 3 /hpf (0-2) H 08/13/18 14:00 Urine WBC 25 - 30 /hpf (0-6) H 08/13/18 14:00 Ur Epithelial Cells 3 - 4 /hpf (0-5) 08/13/18 14:00 Amorphous Sediment Few /hpf (NONE) 08/13/18 14:00 Urine Bacteria Large /hpf (NONE) 08/13/18 14:00 Urine Other Uyeast /hpf 08/13/18 14:00 - RAD Interpretation Narrative RAD Interpretations (Text): CT of Abdomen & Pelvis reviewed by radiologist, shows: Dictated By: Adrián Carpenter MD Dictated Date/Time: 08/13/18 16:32 Impression: There is a colostomy in the left lower quadrant. A suture line can be seen in the sigmoid colon. there is a moderate amount of free fluid in the pelvis. The etiology of this is uncertain. There is no air within the collection to suggest abscess. It is unlikely that the fluid is from an ovarian cyst in this age group. Clinical correlation and follow-up is recommended. 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 - Medication Orders Current Medication Orders: Sodium Chloride (Sodium Chloride 0.9%) 1,000 mls @ 100 mls/hr IV .Q10H OG Last Admin: 08/13/18 14:18 Dose: 100 mls/hr eMAR Start Stop Document 08/13/18 14:18 JOSE EDUARDO (Rec: 08/13/18 14:18 JOSE EDUARDO [id number]) Intravenous Solution Start Date 08/13/18 Start Time 14:18 Discontinued Medications Ciprofloxacin (Cipro 400mg/200ml Dsw) 400 mg in 200 mls @ 133.3 mls/hr IVPB STAT STA; Protocol Stop: 08/13/18 18:41 Last Admin: 08/13/18 18:01 Dose: 133.3 mls/hr eMAR Start Stop Document 08/13/18 18:01 SZA (Rec: 08/13/18 18:02 SZA [id number]) Intravenous Solution Start Date 08/13/18 Start Time 18:02 End Date 08/13/18 End time 19:36 Total Infusion Time 94 Metronidazole (Flagyl) 500 mg in 100 mls @ 100 mls/hr IVPB STAT STA; Protocol Stop: 08/13/18 18:10 Last Admin: 08/13/18 17:33 Dose: 100 mls/hr eMAR Start Stop Document 08/13/18 17:33 SZA (Rec: 08/13/18 17:34 SZA [id number]) Intravenous Solution Start Date 08/13/18 Start Time 17:34 End Date 08/13/18 End time 18:04 Total Infusion Time 30 - Scribe Statement The provider has reviewed the documentation as recorded by the Scribe Jovanna Carnes All medical record entries made by the Scribe were at my direction and personally dictated by me. I have reviewed the chart and agree that the record accurately reflects my personal performance of the history, physical exam, medical decision making, and the department course for this patient. I have also personally directed, reviewed, and agree with the discharge instructions and disposition. Disposition/Present on Arrival - Present on Arrival Any Indicators Present on Arrival: No History of DVT/PE: No History of Uncontrolled Diabetes: No Urinary Catheter: No History of Decub. Ulcer: No History Surgical Site Infection Following: None - Disposition Have Diagnosis and Disposition been Completed?: Yes Diagnosis: Abdominal pain, UTI (urinary tract infection) Disposition: HOSPITALIZED Disposition Time: 17:00 Condition: FAIR
[2018-08-13] MEDS ORDERED: Influenza Vaccine 60 mcg/0.5 mL SYR (4YR UP) IM ONE (22:18)
[2018-08-13] MEDS ORDERED: Pneumococcal 23-Valent Vaccine IM ONE (22:18)
--- NOTE | 2018-08-14 05:12 | CP.PCM.CON ---
History of Present Illness - History of Present Illness History of Present Illness: Surgery 84 years old female with history of Carlos for diverticulitis in 2015 and Rheumatoid arthritis came w low abd pain. Pain is worsen with moving and started yesterday. Denies fever, nausea, vomiting, stoma working. CT was taken and shows pelvic fluids. Pt hasn't got colonoscopy done. Pt doesnt want to get stoma reversed at this time and doesn't want any further surgery. Pt wishes to go home. PSH carlos for perforated diverticulitis 2014, SB resection for SBO 2014 PMH: Rheumatoid arthritis, Colonic abscess, back pain Allergy: NKDA Social History: Does not smoke, drink or use drugs. Patient was able to do ADL's and IADL's on [place] prior to coming to hospital. Family History: Not significant Review of Systems - Constitutional Constitutional: absent: Chills, Fever Past Patient History - Infectious Disease Hx of Infectious Diseases: None - Tetanus Immunizations Tetanus Immunization: Unknown - Past Social History Smoking Status: Former Smoker - CARDIAC Hx Cardiac Disorders: Yes Hx Hypertension: Yes - PULMONARY Hx Respiratory Disorders: No - NEUROLOGICAL Hx Neurological Disorder: Yes (syncope) - HEENT Hx HEENT Problems: No - RENAL Hx Chronic Kidney Disease: No - ENDOCRINE/METABOLIC Hx Endocrine Disorders: Yes Hx Systemic Lupus Erythematosus: Yes - HEMATOLOGICAL/ONCOLOGICAL Hx Blood Disorders: Yes Hx Anemia: Yes - INTEGUMENTARY Hx Dermatological Problems: Yes Other/Comment: multiple skin discolorations ble - MUSCULOSKELETAL/RHEUMATOLOGICAL Hx Musculoskeletal Disorders: Yes Hx Arthritis: Yes Hx Falls: Yes - GASTROINTESTINAL Hx Gastrointestinal Disorders: Yes (BOWEL OBSTRUCTION,RECTAL BLEED,DIVERTICULITIS,COLOSTOMY LLQ) - GENITOURINARY/GYNECOLOGICAL Hx Genitourinary Disorders: Yes (URINARY URGENCY) - PSYCHIATRIC Hx Psychophysiologic Disorder: No Hx Substance Use: No - SURGICAL HISTORY Other/Comment: b/le hip replacement and left knee replacement , picc line in and out keerthi, small bowel resecton lysis of adhesions omentum patch gi lap 01/08/2015, ct scan guided drainage of sigmoid diverticular abcess - ANESTHESIA Hx Anesthesia: Yes Hx Anesthesia Reactions: No Hx Malignant Hyperthermia: No Meds Allergies/Adverse Reactions: Allergies Allergy/AdvReac Type Severity Reaction Status Date / Time No Known Allergies Allergy Verified 08/13/18 17:45 - Medications Medications: Current Medications Sodium Chloride (Sodium Chloride 0.9%) 1,000 mls @ 100 mls/hr IV .Q10H OG Last Admin: 08/13/18 22:31 Dose: 100 mls/hr Physical Exam - Constitutional Appears: No Acute Distress - Head Exam Head Exam: ATRAUMATIC, NORMAL INSPECTION, NORMOCEPHALIC - Eye Exam Eye Exam: EOMI, Normal appearance, PERRL Pupil Exam: NORMAL ACCOMODATION, PERRL - ENT Exam ENT Exam: Mucous Membranes Moist, Normal Exam - Neck Exam Neck exam: Positive for: Normal Inspection - Respiratory Exam Respiratory Exam: NORMAL BREATHING PATTERN - Cardiovascular Exam Cardiovascular Exam: REGULAR RHYTHM - GI/Abdominal Exam GI & Abdominal Exam: Soft, Tenderness. absent: Distended, Firm, Guarding, Hernia, Rigid Additional comments: stoma in place. patent. pink - Exam Exam: NORMAL INSPECTION - Extremities Exam Extremities exam: Positive for: normal inspection. Negative for: full ROM, tenderness - Back Exam Back exam: NORMAL INSPECTION - Neurological Exam Neurological exam: Alert, CN II-XII Intact, Normal Gait, Oriented x3, Reflexes Normal - Psychiatric Exam Psychiatric exam: Normal Affect, Normal Mood - Skin Skin Exam: Dry, Intact, Normal Color, Warm Results - Vital Signs Recent Vital Signs: Last Vital Signs Temp 98.4 F 08/13/18 22:47 Pulse 72 08/13/18 22:47 Resp 18 08/13/18 22:47 BP 141/90 08/13/18 22:47 Pulse Ox 95 08/13/18 22:47 - Labs Result Diagrams: 08/13/18 13:50 08/13/18 13:50 Labs: Laboratory Results - last 24 hr 08/13/18 08/13/18 08/13/18 13:50 13:50 14:00 WBC 11.5 H RBC 3.90 Hgb 12.1 Hct 37.2 MCV 95.4 MCH 31.0 MCHC 32.5 RDW 14.9 H Plt Count 345 MPV 9.1 Gran % 93.4 H Lymph % (Auto) 4.0 L [place] % (Auto) 2.3 Eos % (Auto) 0.1 L Baso % (Auto) 0.2 Gran # 10.78 H Lymph # (Auto) 0.5 L [place] # (Auto) 0.3 Eos # (Auto) 0.0 Baso # (Auto) 0.02 Neutrophils % (Manual) 96 H Lymphocytes % (Manual) 2 L Monocytes % (Manual) 2 Platelet Evaluation Normal Sodium 139 Potassium 4.5 Chloride 105 Carbon Dioxide 26 Anion Gap 12 BUN 27 H Creatinine 1.0 Est GFR ( Amer) > 60 Est GFR (Non-Af Amer) 53 Random Glucose 116 H Calcium 9.6 Magnesium 2.1 Total Bilirubin 0.8 AST 24 ALT 21 Alkaline Phosphatase 68 Total Protein 6.7 Albumin 3.7 Globulin 3.0 Albumin/Globulin Ratio 1.2 Lipase 63 Urine Color Yellow Urine Appearance Clear Urine pH 7.5 Ur Specific [place] 1.020 Urine Protein 30 H Urine Glucose (UA) Negative Urine Ketones Trace H Urine Blood Negative Urine Nitrate Negative Urine Bilirubin Negative Urine Urobilinogen 0.2 Ur Leukocyte Esterase Moderate H Urine RBC 1 - 3 H Urine WBC 25 - 30 H Ur Epithelial Cells 3 - 4 Amorphous Sediment Few Urine Bacteria Large Urine Other Uyeast Assessment & Plan - Assessment and Plan (Free Text) Assessment: Abd pain w pelvic fluids -CT PO/IV contrast -IR eval for possible drainage -NPO for now -IVF Will ROD [place]
--- NOTE | 2018-08-14 06:50 | CP.PCM.HP ---
<Lin Toribio - Last Filed: 08/14/18 18:20> History of Present Illness - History of Present Illness History of Present Illness: 88 year old female PMHx HTN, RA, LBP, diverticulitis with colostomy s/p perf diverticulum in 2014 presents to [facility] with lower abdominal pain. Patient reported the pain has been going on for weeks however worsened prior to admission. She located the pain in her lower abdomen with no radiation. Patient described the pain as 0/10 at rest but 8/10 at its worst and exacerbated by any movement. She denied any associated of the pain with food and denied any nausea/vomiting. Patient has an ostomy bag in place which is emptied once/day. She denied any changes in the ostomy contents, denied any blood/dark stool, diarrhea, or having to change the bag more/fewer times than baseline. On ROS she denied acute complaints of fever, chills, headache, dizziness, chest pain, palpitations, SOB, cough, dysuria, hematuria, pain/swelling in her legs bilaterally. 12 Point ROS performed and neg other than stated above PMHx: as above PSurgHx: Jacek for perforated diverticulitis 2014, small bowel resection for SBO 2014, b/l hip replacement, L knee replacement Meds: pls see chart ALL: NKDA FamHx: denies any cancer, heart disease, CVA in family SocHx: lives alone and completes ADLs independently and ambulates with no assistance. 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 Denies EtOH/drug use. Remote tobacco use in the past. PMD: Dr. Cai GI: Dr. Chun Present on Admission - Present on Admission Any Indicators Present on Admission: No Review of Systems - Review of Systems All systems: reviewed and no additional remarkable complaints except Review of Systems: as per HPI Past Patient History - Infectious Disease Hx of Infectious Diseases: None - Tetanus Immunizations Tetanus Immunization: Unknown - Past Social History Smoking Status: Former Smoker - CARDIAC Hx Cardiac Disorders: Yes Hx Hypertension: Yes - PULMONARY Hx Respiratory Disorders: No - NEUROLOGICAL Hx Neurological Disorder: Yes (syncope) - HEENT Hx HEENT Problems: No - RENAL Hx Chronic Kidney Disease: No - ENDOCRINE/METABOLIC Hx Endocrine Disorders: Yes Hx Systemic Lupus Erythematosus: Yes - HEMATOLOGICAL/ONCOLOGICAL Hx Blood Disorders: Yes Hx Anemia: Yes - INTEGUMENTARY Hx Dermatological Problems: Yes Other/Comment: multiple skin discolorations ble - MUSCULOSKELETAL/RHEUMATOLOGICAL Hx Musculoskeletal Disorders: Yes Hx Arthritis: Yes Hx Falls: Yes - GASTROINTESTINAL Hx Gastrointestinal Disorders: Yes (BOWEL OBSTRUCTION,RECTAL BLEED,DIVERTICULITIS,COLOSTOMY LLQ) - GENITOURINARY/GYNECOLOGICAL Hx Genitourinary Disorders: Yes (URINARY URGENCY) - PSYCHIATRIC Hx Psychophysiologic Disorder: No Hx Substance Use: No - SURGICAL HISTORY Other/Comment: b/le hip replacement and left knee replacement , picc line in and out keerthi, small bowel resecton lysis of adhesions omentum patch gi lap 01/08/2015, ct scan guided drainage of sigmoid diverticular abcess - ANESTHESIA Hx Anesthesia: Yes Hx Anesthesia Reactions: No Hx Malignant Hyperthermia: No Meds Allergies/Adverse Reactions: Allergies Allergy/AdvReac Type Severity Reaction Status Date / Time No Known Allergies Allergy Verified 08/13/18 17:45 Physical Exam - Constitutional Appears: Non-toxic, No Acute Distress - Head Exam Head Exam: ATRAUMATIC, NORMAL INSPECTION, NORMOCEPHALIC - Eye Exam Eye Exam: EOMI, Normal appearance, PERRL. absent: Conjunctival injection, Scleral icterus - ENT Exam ENT Exam: Mucous Membranes Moist - Neck Exam Neck exam: Positive for: Full Rom, Normal Inspection - Respiratory Exam Respiratory Exam: Clear to Auscultation Bilateral, NORMAL BREATHING PATTERN. absent: Accessory Muscle Use, Rales, Rhonchi, Wheezes, Respiratory Distress - Cardiovascular Exam Cardiovascular Exam: REGULAR RHYTHM, +S1, +S2 - GI/Abdominal Exam GI & Abdominal Exam: Soft, Tenderness (lower abdomen). absent: Firm, Guarding, Rigid Additional comments: ostomy bag in place - Rectal Exam Rectal Exam: Deferred - Extremities Exam Extremities exam: Positive for: normal inspection, pedal pulses present. Negative for: pedal edema - Neurological Exam Neurological exam: Alert, CN II-XII Intact, Oriented x3 - Psychiatric Exam Psychiatric exam: Normal Affect, Normal Mood - Skin Skin Exam: Dry, Intact, Normal Color, Warm Results - Vital Signs Recent Vital Signs: Last Vital Signs Temp 98.4 F 08/13/18 22:47 Pulse 72 08/13/18 22:47 Resp 18 08/13/18 22:47 BP 141/90 08/13/18 22:47 Pulse Ox 95 08/13/18 22:47 - Labs Result Diagrams: 08/13/18 13:50 08/13/18 13:50 Labs: Laboratory Results - last 24 hr 08/13/18 08/13/18 08/13/18 13:50 13:50 14:00 WBC 11.5 H RBC 3.90 Hgb 12.1 Hct 37.2 MCV 95.4 MCH 31.0 MCHC 32.5 RDW 14.9 H Plt Count 345 MPV 9.1 Gran % 93.4 H Lymph % (Auto) 4.0 L [place] % (Auto) 2.3 Eos % (Auto) 0.1 L Baso % (Auto) 0.2 Gran # 10.78 H Lymph # (Auto) 0.5 L [place] # (Auto) 0.3 Eos # (Auto) 0.0 Baso # (Auto) 0.02 Neutrophils % (Manual) 96 H Lymphocytes % (Manual) 2 L Monocytes % (Manual) 2 Platelet Evaluation Normal Sodium 139 Potassium 4.5 Chloride 105 Carbon Dioxide 26 Anion Gap 12 BUN 27 H Creatinine 1.0 Est GFR ( Amer) > 60 Est GFR (Non-Af Amer) 53 POC Glucose (mg/dL) Random Glucose 116 H Calcium 9.6 Magnesium 2.1 Total Bilirubin 0.8 AST 24 ALT 21 Alkaline Phosphatase 68 Total Protein 6.7 Albumin 3.7 Globulin 3.0 Albumin/Globulin Ratio 1.2 Lipase 63 Urine Color Yellow Urine Appearance Clear Urine pH 7.5 Ur Specific [place] 1.020 Urine Protein 30 H Urine Glucose (UA) Negative Urine Ketones Trace H Urine Blood Negative Urine Nitrate Negative Urine Bilirubin Negative Urine Urobilinogen 0.2 Ur Leukocyte Esterase Moderate H Urine RBC 1 - 3 H Urine WBC 25 - 30 H Ur Epithelial Cells 3 - 4 Amorphous Sediment Few Urine Bacteria Large Urine Other Uyeast 08/14/18 06:37 WBC RBC Hgb Hct MCV MCH MCHC RDW Plt Count MPV Gran % Lymph % (Auto) [place] % (Auto) Eos % (Auto) Baso % (Auto) Gran # Lymph # (Auto) [place] # (Auto) Eos # (Auto) Baso # (Auto) Neutrophils % (Manual) Lymphocytes % (Manual) Monocytes % (Manual) Platelet Evaluation Sodium Potassium Chloride Carbon Dioxide Anion Gap BUN Creatinine Est GFR ( Amer) Est GFR (Non-Af Amer) POC Glucose (mg/dL) 77 Random Glucose Calcium Magnesium Total Bilirubin AST ALT Alkaline Phosphatase Total Protein Albumin Globulin Albumin/Globulin Ratio Lipase Urine Color Urine Appearance Urine pH Ur Specific [place] Urine Protein Urine Glucose (UA) Urine Ketones Urine Blood Urine Nitrate Urine Bilirubin Urine Urobilinogen Ur Leukocyte Esterase Urine RBC Urine WBC Ur Epithelial Cells Amorphous Sediment Urine Bacteria Urine Other Assessment & Plan - Assessment and Plan (Free Text) Assessment: 1. Lower abdominal pain 2. Leukocytosis 3. Asymptomatic UTI 4. Ostomy 5. Rheumatoid Arthritis 6. HTN 7. Chronic Lower back pain 8. Chronic prendisone use Plan: Patient's vitals, blood work and imaging reviewed in chart. Patient had CT Abd/pelvis with IV contrast that revealed moderate amount free fluid in pelvis with no air within collection to suggest abscess. Surgery was consulted who recommended repeat CT Abd/pelvis with PO and IV contrast- will follow up. Suggested IR for possible drainage. Leukocytosis noted. Patient afebrile overni ght. Received Cipro and Flagyl in the ER. Patient was started on Zosyn and ID consulted. UA revealed moderate leuk esterase and Urine Cx showed gram negative porsha. Blood culture prelim negative x 2. Patient's stoma in place, patent, and is functioning well with output at baseline as per patient. Continue ostomy management. Patient on MTX 8mg weekly for RA. Continue home prednisone and Lyrica at this time. Continue Verapamil for HTN and patient has IV Hydralazine ordered for prn SBP > 160mmHg. Continue tylenol prn for chronic low back pain. Patient on maintenance fluids at this time. Will continue to monitor closely Discussed with Dr. Jitendra Toribio PGY3 <Sai Ham S - Last Filed: 08/14/18 19:29> Results - Vital Signs Recent Vital Signs: Last Vital Signs Temp 99 F 08/14/18 14:00 Pulse 77 08/14/18 14:00 Resp 20 08/14/18 14:00 BP 180/78 H 08/14/18 14:00 Pulse Ox 94 L 08/14/18 14:00 - Labs Result Diagrams: 08/13/18 13:50 08/13/18 13:50 Labs: Laboratory Results - last 24 hr 08/14/18 06:37 POC Glucose (mg/dL) 77 Assessment & Plan - Assessment and Plan (Free Text) Plan: Pt seen and examined by me. I have reviewed the note of the medical social consultant and I agree with it. I have discussed the assessment and plan with the resident. I have reviewed the medications and the last labs. Pt with abd pain possibly from the ascites and possible infection/ abscess. CT of Abd / pelvis has been reviewed. Spoke to daughter, Gurinder to give update. She was given Cirpo and Flagyl in the ER. Will give Zosyn for broad spectrum coverage. ID consulted. Surgery note has been reviewed. She is on Methotrexate at home for her RA. She is on Verapamil for her HTN. Will get PTevaluation. Pt was not able to ambulate at home due to pain.
[2018-08-14] MEDS: Verapamil 180 mg ER Tab PO SCH (10:32)
--- NOTE | 2018-08-14 11:02 | CP.PCM.APN ---
Subjective - Date & Time of Evaluation Date of Evaluation: 08/14/18 Time of Evaluation: 10:30 - Subjective Subjective: Pt seen and examined at bedside. States that there is no abdominal pain if she remains still. Denies nausea or vomiting. Objective - Vital Signs/Intake and Output Vital Signs (last 24 hours): Temp Pulse Resp BP Pulse Ox 97.9 F 90 18 160/95 H 98 08/14/18 06:00 08/14/18 10:32 08/14/18 06:00 08/14/18 10:32 08/14/18 06:00 Intake and Output: 08/14/18 08/14/18 06:59 18:59 Intake Total 2400 Balance 2400 - Medications Medications: Current Medications Acetaminophen (Tylenol 325mg Tab) 650 mg PO Q4H PRN PRN Reason: Pain, Mild (1-3) Sodium Chloride (Sodium Chloride 0.9%) 1,000 mls @ 100 mls/hr IV .Q10H [facility] Last Admin: 08/13/18 22:31 Dose: 100 mls/hr Prednisone (Prednisone Tab) 5 mg PO DAILY [facility] Last Admin: 08/14/18 10:29 Dose: 5 mg Pregabalin (Lyrica) 50 mg PO HS [facility] Verapamil HCl (Calan Sr Tab) 90 mg PO DAILY [facility] Last Admin: 08/14/18 10:32 Dose: 90 mg - Labs Labs: 08/13/18 13:50 08/13/18 13:50 - Constitutional Appears: No Acute Distress - Head Exam Head Exam: ATRAUMATIC - Eye Exam Eye Exam: Normal appearance - ENT Exam ENT Exam: Normal Exam - Neck Exam Neck Exam: Full ROM - Respiratory Exam Respiratory Exam: Clear to Ausculation Bilateral, NORMAL BREATHING PATTERN - Cardiovascular Exam Cardiovascular Exam: REGULAR RHYTHM, +S1, +S2 - GI/Abdominal Exam Additional comments: +colostomy - Rectal Exam Rectal Exam: Deferred - Extremities Exam Extremities Exam: Normal Inspection - Neurological Exam Neurological Exam: Alert, Awake, Oriented x3 Assessment and Plan - Assessment and Plan (Free Text) Assessment: Pt is an 88 y.o. female with pmhx of diverticulitis, HTN, anemia, Jacek's procedure and colostomy who presented in ED w/ c/o lower abdominal pain. Impressions Abdomen/Pelvis CT 08/13/18 13:33 IMPRESSION: There is a colostomy in the left lower quadrant. A suture line can be seen in the sigmoid colon. There is a moderate amount of free fluid in the pelvis. The etiology of this is uncertain. There is no air within the collection to suggest abscess. It is unlikely that the fluid is from an ovarian cyst in this age group. Clinical correlation and follow-up is recommended. Plan: Pending CT A/P w/ IV contrast Poss pelvic fluid drainage Surgery on consult Meds per MAR Will continue to follow
[2018-08-14] MEDS ORDERED: Barium Sulfate Susp 2.1% w/v, 2.0% w/w 450 mL Bottle PO ONE (12:10)
[2018-08-14] MEDS ORDERED: Iohexol 350 MG/100 ML VIAL ONE (16:09)
[2018-08-14] MEDS: Sodium Chloride 0.9% 1,000 ML IV SCH (17:27)
--- NOTE | 2018-08-14 17:38 | CT ---
Date of service: 08/14/2018 PROCEDURE: CT Abdomen and Pelvis with contrast HISTORY: pelvic fluids , Rectal contrast too pls COMPARISON: Abdomen and pelvis CT with contrast 08/12/2018. TECHNIQUE: Following oral and intravenous contrast administration, a CT examination of the abdomen and pelvis performed from the domes of the diaphragms to the symphysis pubis with reformatted datasets provided not only axial but also sagittal and coronal series. Coronal and sagittal reformats were generated. The technologist performing the CT examination called the referring physician regarding the inability to administer rectal contrast at the time of imaging which was apparently understood by the resident who conveyed this to Dr. Houston who agreed to forego rectal contrast administration. Contrast dose: Omnipaque 350, 96 cc Radiation dose: Total exam DLP = 390.37 mGy-cm. This CT exam was performed using one or more of the following dose reduction techniques: Automated exposure control, adjustment of the mA and/or kV according to patient size, and/or use of iterative reconstruction technique. FINDINGS: LOWER THORAX: Unremarkable. Cardiomegaly and linear atelectasis or fibrosis seen at the bilateral bases once again. Small hiatal hernia reiterated. LIVER: Unremarkable. No gross lesion or ductal dilatation. GALLBLADDER AND BILE DUCTS: Unremarkable. PANCREAS: Unremarkable. No gross lesion or ductal dilatation. SPLEEN: Unremarkable. ADRENALS: Unremarkable. No mass. KIDNEYS AND URETERS: 1.4 cm hyperdense cyst is seen at the mid to lower pole right kidney once again not significantly changed in size compared to 10/24/[address] 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 There a few tiny lucencies scattered both kidneys too small to characterize. No obstructive uropathy or significant perinephric reactive change. VASCULATURE: Nonaneurysmal abdominal aortic calcific atherosclerotic changes are identified. BOWEL: Again there is no bowel obstruction appreciated with a left lower quadrant colostomy identified and a Jacek pouch in the pelvis. Marked diverticular changes are appreciated associated with the Dominguez pouch with a an apparent area of thickening of the wall measuring 4.3 x 2.9 cm with central focal lucency suggestive of likely mural thickening with microabscess formation. Images of the inferior rectum are somewhat obscured by extensive artifact related to bilateral total replacement orthopedic hardware. Fluid is again seen in the pelvis measuring 8.2 x 7.9 cm compared to 5.6 x 4.4 cm previously. No peripheral enhancement is associated with this fluid which is presumably related to the abscess but potentially reactive rather than a product of the presumed intramural abscess. The differential diagnosis would be potential right ovarian lesion as the right gonadal vein does appear adjacent to its cephalad surface. The ruptured adnexal cyst is the differential diagnosis. Scattered colonic diverticula at the right and left hemicolon are identified. APPENDIX: Likely prior appendectomy with a small residual stump at the base of the cecum. PERITONEUM: No abdominal ascites. Slight pelvic ascites as discussed in bowel section above. LYMPH NODES: Unremarkable. No enlarged lymph nodes. BLADDER: Poorly visualized due to artifact from bilateral THR hardware. REPRODUCTIVE: See bowel section above. Prior hysterectomy suspected. BONES: No acute fracture. OTHER FINDINGS: None. IMPRESSION: Mild increase in volume in peritoneal fluid collection in the pelvis adjacent to Jacek pouch with diverticular changes associated at the upper portion. Area of questionable mural thickening is appreciate with small lucencies suspicious for potential diverticular abscess, intramural, although rupture of a right adnexal cyst is a possible etiology for pelvic fluid collection. Ovarian cyst rupture is unlikely and right sided intramural abscess is favored although this on the contralateral side of the fluid collection. Follow-up pelvic ultrasound is recommended for added characterization. Stable left lower quadrant colostomy. No bowel obstruction. Scattered occasional diverticula of the colon are identified without definite diverticulitis.
[2018-08-14] MEDS ORDERED: Sodium Chloride 0.9% 1,000 ML IV SCH (18:43)
[2018-08-14] MEDS: Piperacillin/Tazobact 3.375 gm 100 ML IVPB SCH (21:49)
[2018-08-15] MEDS: Piperacillin/Tazobact 3.375 gm 100 ML IVPB SCH ×3 (05:58→22:32)
[2018-08-15 07:17] LABS: BASO # 0.02 K/mm3 (0.0-2.0); BASO % 0.2 % (0.0-3.0); EOS % 0.3 % (1.5-5.0); GRAN # 8.46 (1.4-6.5); GRAN % 85.5 % (50.0-68.0); HEMOGLOBIN 11.2 g/dL (12.0-16.0); LYMPH # 0.7 (1.2-3.4); LYMPH % 7.2 % (22.0-35.0); MEAN CELL VOLUME 93.2 fl (80.0-105.0); MEAN CORPUSCULAR HEMOGLOBIN 30.4 pg (25.0-35.0); MEAN CORPUSCULAR HGB CONC 32.6 g/dl (31.0-37.0); MEAN PLATELET VOLUME 9.2 fl (7.0-11.0); MONO # 0.7 (0.1-0.6); MONO % 6.8 % (1.0-6.0); RBC 3.69 10^6/uL (3.5-6.1); RED CELL DISTRIBUTION WIDTH 14.7 % (11.5-14.5); WHITE BLOOD COUNT 9.9 10^3/uL (4.5-11.0)
[2018-08-15 07:19] LABS: ALB/GLOB RATIO 1.2 (1.1-1.8); ALBUMIN 3.1 g/dL (3.0-4.8); ALT/SGPT 28 U/L (7-56); AST/SGOT 18 U/L (14-36); BLOOD UREA NITROGEN 15 mg/dL (7-21); CALCIUM 8.6 mg/dL (8.4-10.5); GFR NON-AFRICAN AMERICAN 53
--- NOTE | 2018-08-15 09:22 | CP.PCM.PN ---
<Lin Toribio - Last Filed: 08/15/18 14:08> Subjective - Date & Time of Evaluation Date of Evaluation: 08/15/18 Time of Evaluation: 08:00 - Subjective Subjective: Pgy3 Medicine progress note for Dr. Ham Patient seen and examined at bedside. Nursing reported overnight patient was confused but was able to be redirected. Patient complained of some pain but was able to sleep through the night. She was resting comfortably this AM and denied any fever, chills, headache, chest pain, SOB, nausea, vomiting, bpain/swelling in her legs b/l. Patient had two episodes of urinary icontinence and nursing re ported noticing some mucous and light stool from her rectum. No output in ostomy bag this AM. Objective - Vital Signs/Intake and Output Vital Signs (last 24 hours): Temp Pulse Resp BP Pulse Ox 98.1 F 82 18 162/85 H 94 L 08/15/18 07:00 08/15/18 07:00 08/15/18 07:00 08/15/18 07:00 08/15/18 07:00 Intake and Output: 08/15/18 08/15/18 06:59 18:59 Intake Total 120 Balance 120 - Medications Medications: Current Medications Acetaminophen (Tylenol 325mg Tab) 650 mg PO Q4H PRN PRN Reason: Pain, Mild (1-3) Hydralazine HCl (Apresoline) 10 mg IVP Q6 PRN PRN Reason: Systolic Blood Pressure Last Admin: 08/15/18 06:16 Dose: 10 mg Piperacillin Sod/Tazobactam Sod (Zosyn 3.375 In Ns 100ml) 100 mls @ 25 mls/hr IVPB Q8 [facility]; Protocol Stop: 08/21/18 22:01 Last Admin: 08/15/18 05:58 Dose: 25 mls/hr Prednisone (Prednisone Tab) 5 mg PO DAILY [facility] Last Admin: 08/14/18 10:29 Dose: 5 mg Pregabalin (Lyrica) 50 mg PO HS [facility] Last Admin: 08/14/18 22:34 Dose: Not Given Verapamil HCl (Calan Sr Tab) 90 mg PO DAILY [facility] Last Admin: 08/14/18 10:32 Dose: 90 mg - Labs Labs: 08/15/18 06:40 08/15/18 06:40 - Additional Findings Additional findings: - Constitutional Appears: Non-toxic, No Acute Distress - Head Exam Head Exam: ATRAUMATIC, NORMAL INSPECTION, NORMOCEPHALIC - Eye Exam Eye Exam: EOMI, Normal appearance, PERRL. absent: Conjunctival injection, Scleral icterus - ENT Exam ENT Exam: Mucous Membranes Moist - Neck Exam Neck exam: Positive for: Full Rom, Normal Inspection - Respiratory Exam Respiratory Exam: Clear to Auscultation Bilateral, NORMAL BREATHING PATTERN. absent: Accessory Muscle Use, Rales, Rhonchi, Wheezes, Respiratory Distress - Cardiovascular Exam Cardiovascular Exam: REGULAR RHYTHM, +S1, +S2 - GI/Abdominal Exam GI & Abdominal Exam: Soft, Tenderness (lower abdomen). absent: Firm, Guarding, Rigid Additional comments: ostomy bag in place - Rectal Exam Rectal Exam: Deferred - Extremities Exam Extremities exam: Positive for: normal inspection, pedal pulses present. Negative for: pedal edema - Neurological Exam Neurological exam: Alert, CN II-XII Intact, Oriented x3 - Psychiatric Exam Psychiatric exam: Normal Affect, Normal Mood - Skin Skin Exam: Dry, Intact, Normal Color, Warm Assessment and Plan - Assessment and Plan (Free Text) Assessment: 1. Abdominal fluid collection r/o diverticular abscess 2. Leukocytosis- resolved 3. Asymptomatic UTI 4. Ostomy 5. Urinary incontinence 6. Rheumatoid Arthritis 7. HTN 8. Chronic Lower back pain 9. Chronic prendisone use 10. Gait dysfunction Plan: Patient's vitals, blood work, and imaging reviewed in chart. On Zosyn day 2 and ID is on board. As per surgery will give another dulcolax suppository Patient's urine culture +Klebsiella. Blood culture prelim neg x 2. Patient for CT guided abscess drainage as per IR. Patient's stoma in place and patent. Continue ostomy management. Continue home prednisone and Lyrica at this time. Continue Verapamil for HTN and patient has IV Hydralazine ordered for prn SBP > 160mmHg. Continue tylenol prn for chronic low back pain. Will continue to monitor closely. Appreciate reccs of Surgery and ID. Patient has regular diet. PT on board for gait dysfunction. Discussed with Dr. Jitendra Toribio PGY3 <Sai Ham - Last Filed: 08/15/18 18:37> Objective - Vital Signs/Intake and Output Vital Signs (last 24 hours): Temp Pulse Resp BP Pulse Ox 98.2 F 62 18 115/61 98 08/15/18 17:45 08/15/18 17:45 08/15/18 17:45 08/15/18 17:45 08/15/18 17:45 Intake and Output: 08/15/18 08/15/18 06:59 18:59 Intake Total 120 Balance 120 - Medications Medications: Current Medications Acetaminophen (Tylenol 325mg Tab) 650 mg PO Q4H PRN PRN Reason: Pain, Mild (1-3) Hydralazine HCl (Apresoline) 10 mg IVP Q6 PRN PRN Reason: Systolic Blood Pressure Last Admin: 08/15/18 06:16 Dose: 10 mg Piperacillin Sod/Tazobactam Sod (Zosyn 3.375 In Ns 100ml) 100 mls @ 25 mls/hr IVPB Q8 [facility]; Protocol Stop: 08/21/18 22:01 Last Admin: 08/15/18 14:20 Dose: 25 mls/hr Ondansetron HCl (Zofran Inj) 4 mg IVP Q6H PRN PRN Reason: Nausea/Vomiting Prednisone (Prednisone Tab) 5 mg PO DAILY [facility] Last Admin: 08/15/18 11:45 Dose: 5 mg Pregabalin (Lyrica) 50 mg PO HS [facility] Last Admin: 08/14/18 22:34 Dose: Not Given Verapamil HCl (Calan Sr Tab) 90 mg PO DAILY [facility] Last Admin: 08/15/18 11:45 Dose: 90 mg - Labs Labs: 08/15/18 06:40 08/15/18 06:40 Assessment and Plan - Assessment and Plan (Free Text) Plan: Pt seen and examined by me. I have reviewed the note of the medical writer and I agree with it. I have discussed the assessment and plan with the resident. I have reviewed the medications and the last labs. Pt with abd pain due to abscess. She had drainage of the fluid by Dr Andrew Kearney. She has Rheumatoid arthritis and is stable. She is on Zosyn for Abx. She will continue with Verapamil for HTN. I spoke to the daughter to update her about he diagnosis and plan. Her chronic back pain and is on pain meds. The pain is controlled. She is on Lyrica for her pain as well. This is also treating her neuropathy.
--- NOTE | 2018-08-15 10:18 | CP.PCM.CON ---
<Beau Taylor - Last Filed: 08/15/18 12:09> History of Present Illness - History of Present Illness History of Present Illness: ID Consult Note 88 year old female with past medical history of HTN, rheumatoid arthritis, diverticulitis s/p perforation and colostomy presented to the hospital for lower abdominal pain for the past several weeks. Patient states she has had chronic abdominal pain for a long time. Patient states her pain is located mainly in right lower quadrant, but does not raiate. Patient states she has not noticed any changes in output from her colostomy bag. Patient did not take any medication at home for her pain. Denies chest pain, shortness of breath, nausea, vomiting, diarrhea, fever, chills, blood in colostomy bag, dysuria, numbness, tingling. Medical Hx: As above Surgical Hx: Jacek procedure for perforated diverticulitis 2014, small bowel resection, b/l hip replacement, L knee replacement Medications: Reviewed, as per MAR Allergies: NKDA Family Hx: Denies Social Hx: Denies alcohol or illicit drug use. Remote tobacco use in the past. Review of Systems - Review of Systems Review of Systems: 12 point ROS as per HPI, otherwise negative Past Patient History - Infectious Disease Hx of Infectious Diseases: None - Tetanus Immunizations Tetanus Immunization: Unknown - Past Social History Smoking Status: Former Smoker - CARDIAC Hx Cardiac Disorders: Yes Hx Hypertension: Yes - PULMONARY Hx Respiratory Disorders: No - NEUROLOGICAL Hx Neurological Disorder: Yes (syncope) - HEENT Hx HEENT Problems: No - RENAL Hx Chronic Kidney Disease: No - ENDOCRINE/METABOLIC Hx Endocrine Disorders: Yes Hx Systemic Lupus Erythematosus: Yes - HEMATOLOGICAL/ONCOLOGICAL Hx Blood Disorders: Yes Hx Anemia: Yes - INTEGUMENTARY Hx Dermatological Problems: Yes Other/Comment: multiple skin discolorations ble - MUSCULOSKELETAL/RHEUMATOLOGICAL Hx Musculoskeletal Disorders: Yes Hx Arthritis: Yes Hx Falls: Yes - GASTROINTESTINAL Hx Gastrointestinal Disorders: Yes (BOWEL OBSTRUCTION,RECTAL BLEED,DIVERTICULITIS,COLOSTOMY LLQ) - GENITOURINARY/GYNECOLOGICAL Hx Genitourinary Disorders: Yes (URINARY URGENCY) - PSYCHIATRIC Hx Psychophysiologic Disorder: No Hx Substance Use: No - SURGICAL HISTORY Other/Comment: b/le hip replacement and left knee replacement , picc line in and out keerthi, small bowel resecton lysis of adhesions omentum patch gi lap 01/08/2015, ct scan guided drainage of sigmoid diverticular abcess - ANESTHESIA Hx Anesthesia: Yes Hx Anesthesia Reactions: No Hx Malignant Hyperthermia: No Meds Allergies/Adverse Reactions: Allergies Allergy/AdvReac Type Severity Reaction Status Date / Time No Known Allergies Allergy Verified 08/13/18 17:45 - Medications Medications: Current Medications Acetaminophen (Tylenol 325mg Tab) 650 mg PO Q4H PRN PRN Reason: Pain, Mild (1-3) Hydralazine HCl (Apresoline) 10 mg IVP Q6 PRN PRN Reason: Systolic Blood Pressure Last Admin: 08/15/18 06:16 Dose: 10 mg Piperacillin Sod/Tazobactam Sod (Zosyn 3.375 In Ns 100ml) 100 mls @ 25 mls/hr IVPB Q8 [facility]; Protocol Stop: 08/21/18 22:01 Last Admin: 08/15/18 05:58 Dose: 25 mls/hr Prednisone (Prednisone Tab) 5 mg PO DAILY [facility] Last Admin: 08/14/18 10:29 Dose: 5 mg Pregabalin (Lyrica) 50 mg PO HS [facility] Last Admin: 08/14/18 22:34 Dose: Not Given Verapamil HCl (Calan Sr Tab) 90 mg PO DAILY [facility] Last Admin: 08/14/18 10:32 Dose: 90 mg Physical Exam - Constitutional Appears: Non-toxic, No Acute Distress - Head Exam Head Exam: ATRAUMATIC, NORMAL INSPECTION, NORMOCEPHALIC - ENT Exam ENT Exam: Mucous Membranes Moist - Respiratory Exam Respiratory Exam: Clear to Auscultation Bilateral, NORMAL BREATHING PATTERN. absent: Rales, Rhonchi, Wheezes - Cardiovascular Exam Cardiovascular Exam: RRR, +S1, +S2 - GI/Abdominal Exam GI & Abdominal Exam: Soft, Tenderness (RLQ) Additional comments: Colostomy - Extremities Exam Extremities exam: Positive for: normal inspection. Negative for: pedal edema - Neurological Exam Neurological exam: Alert, CN II-XII Intact, Oriented x3 - Psychiatric Exam Psychiatric exam: Normal Affect, Normal Mood - Skin Skin Exam: Intact, Normal Color, Warm Results - Vital Signs Recent Vital Signs: Last Vital Signs Temp 98.1 F 08/15/18 07:00 Pulse 82 08/15/18 07:00 Resp 18 08/15/18 07:00 BP 162/85 H 08/15/18 07:00 Pulse Ox 94 L 08/15/18 07:00 - Labs Result Diagrams: 08/15/18 06:40 08/15/18 06:40 Labs: Laboratory Results - last 24 hr 08/15/18 08/15/18 06:40 06:40 WBC 9.9 RBC 3.69 Hgb 11.2 L Hct 34.4 L MCV 93.2 MCH 30.4 MCHC 32.6 RDW 14.7 H Plt Count 342 MPV 9.2 Gran % 85.5 H Lymph % (Auto) 7.2 L [place] % (Auto) 6.8 H Eos % (Auto) 0.3 L Baso % (Auto) 0.2 Gran # 8.46 H Lymph # (Auto) 0.7 L [place] # (Auto) 0.7 H Eos # (Auto) 0.0 Baso # (Auto) 0.02 Sodium 136 Potassium 3.5 L Chloride 106 Carbon Dioxide 19 L Anion Gap 14 BUN 15 Creatinine 1.0 Est GFR ( Amer) > 60 Est GFR (Non-Af Amer) 53 Random Glucose 67 L Calcium 8.6 Phosphorus 3.3 Magnesium 1.9 Total Bilirubin 0.6 AST 18 ALT 28 Alkaline Phosphatase 65 Total Protein 5.8 Albumin 3.1 Globulin 2.7 Albumin/Globulin Ratio 1.2 Assessment & Plan - Assessment and Plan (Free Text) Plan: Abdominal fluid collection R/O abdominal abscess Asymptomatic bacteuria Hx of diverticulitis Hx of HTN Hx of rheumatoid arthritis Plan CT abdomen/pelvis reviewed, demonstrates abdominal fluid collection/abscess Zosyn started, will continue at this time Urine culture demonstrates Klebsiella oxytoca, no need for treatment as patient is asymptomatic Follow up surgery/IR recommendations Follow up blood cultures Brandon, PGY-3 <Stiven Dickens - Last Filed: 08/15/18 18:03> Meds - Medications Medications: Current Medications Acetaminophen (Tylenol 325mg Tab) 650 mg PO Q4H PRN PRN Reason: Pain, Mild (1-3) Hydralazine HCl (Apresoline) 10 mg IVP Q6 PRN PRN Reason: Systolic Blood Pressure Last Admin: 08/15/18 06:16 Dose: 10 mg Piperacillin Sod/Tazobactam Sod (Zosyn 3.375 In Ns 100ml) 100 mls @ 25 mls/hr IVPB Q8 [facility]; Protocol Stop: 08/21/18 22:01 Last Admin: 08/15/18 14:20 Dose: 25 mls/hr Ondansetron HCl (Zofran Inj) 4 mg IVP Q6H PRN PRN Reason: Nausea/Vomiting Prednisone (Prednisone Tab) 5 mg PO DAILY [facility] Last Admin: 08/15/18 11:45 Dose: 5 mg Pregabalin (Lyrica) 50 mg PO HS [facility] Last Admin: 08/14/18 22:34 Dose: Not Given Verapamil HCl (Calan Sr Tab) 90 mg PO DAILY [facility] Last Admin: 08/15/18 11:45 Dose: 90 mg Results - Vital Signs Recent Vital Signs: Last Vital Signs Temp 98.2 F 08/15/18 17:45 Pulse 62 08/15/18 17:45 Resp 18 08/15/18 17:45 BP 115/61 08/15/18 17:45 Pulse Ox 98 08/15/18 17:45 - Labs Result Diagrams: 08/15/18 06:40 08/15/18 06:40 Labs: Laboratory Results - last 24 hr 08/15/18 08/15/18 06:40 06:40 WBC 9.9 RBC 3.69 Hgb 11.2 L Hct 34.4 L MCV 93.2 MCH 30.4 MCHC 32.6 RDW 14.7 H Plt Count 342 MPV 9.2 Gran % 85.5 H Lymph % (Auto) 7.2 L [place] % (Auto) 6.8 H Eos % (Auto) 0.3 L Baso % (Auto) 0.2 Gran # 8.46 H Lymph # (Auto) 0.7 L [place] # (Auto) 0.7 H Eos # (Auto) 0.0 Baso # (Auto) 0.02 Sodium 136 Potassium 3.5 L Chloride 106 Carbon Dioxide 19 L Anion Gap 14 BUN 15 Creatinine 1.0 Est GFR ( Amer) > 60 Est GFR (Non-Af Amer) 53 Random Glucose 67 L Calcium 8.6 Phosphorus 3.3 Magnesium 1.9 Total Bilirubin 0.6 AST 18 ALT 28 Alkaline Phosphatase 65 Total Protein 5.8 Albumin 3.1 Globulin 2.7 Albumin/Globulin Ratio 1.2 Assessment & Plan - Assessment and Plan (Free Text) Plan: Infectious diseases Attending Physician Attestation Patient seen and examined, discussed with medical billing instructor. I have reviewed the patient's history of present illness, past medical, social, personal and family histories, pertinent physical exam findings, course so far in this hospital admission, pertinent laboratory and imaging results. I agree with the above findings, assessment and plan. In addition, we have started Zosyn for patient with probable intra-abdominal abscess/ fluid collection. Discussed with Dr. Chacon - patient for possible IR-guided drainage. Will monitor clinically.
[2018-08-15] MEDS: Verapamil 180 mg ER Tab PO SCH (11:45)
--- NOTE | 2018-08-15 12:26 | CP.PCM.PN ---
Subjective - Date & Time of Evaluation Date of Evaluation: 08/15/18 Time of Evaluation: 12:23 - Subjective Subjective: Surgery: Dr. Houston Pt seen and examined. Pt appears more somnolent this morning, but she denies any complaints. She was given dulcolax suppository yesterday, no BM. There were no acute events overnight. Objective - Vital Signs/Intake and Output Vital Signs (last 24 hours): Temp Pulse Resp BP Pulse Ox 98.1 F 82 18 162/85 H 94 L 08/15/18 07:00 08/15/18 07:00 08/15/18 07:00 08/15/18 07:00 08/15/18 07:00 Intake and Output: 08/15/18 08/15/18 06:59 18:59 Intake Total 120 Balance 120 - Medications Medications: Current Medications Acetaminophen (Tylenol 325mg Tab) 650 mg PO Q4H PRN PRN Reason: Pain, Mild (1-3) Hydralazine HCl (Apresoline) 10 mg IVP Q6 PRN PRN Reason: Systolic Blood Pressure Last Admin: 08/15/18 06:16 Dose: 10 mg Piperacillin Sod/Tazobactam Sod (Zosyn 3.375 In Ns 100ml) 100 mls @ 25 mls/hr IVPB Q8 [facility]; Protocol Stop: 08/21/18 22:01 Last Admin: 08/15/18 05:58 Dose: 25 mls/hr Prednisone (Prednisone Tab) 5 mg PO DAILY [facility] Last Admin: 08/15/18 11:45 Dose: 5 mg Pregabalin (Lyrica) 50 mg PO [facility] Last Admin: 08/14/18 22:34 Dose: Not Given Verapamil HCl (Calan Sr Tab) 90 mg PO DAILY [facility] Last Admin: 08/15/18 11:45 Dose: 90 mg - Labs Labs: 08/15/18 06:40 08/15/18 06:40 - Constitutional Appears: Non-toxic, No Acute Distress - Head Exam Head Exam: ATRAUMATIC, NORMOCEPHALIC - Eye Exam Eye Exam: EOMI - ENT Exam ENT Exam: Mucous Membranes Moist - Neck Exam Neck Exam: Full ROM - Respiratory Exam Respiratory Exam: NORMAL BREATHING PATTERN. absent: Accessory Muscle Use, Respiratory Distress - GI/Abdominal Exam GI & Abdominal Exam: Soft. absent: Distended, Firm, Guarding, Rigid, Tenderness Additional comments: colostomy pink and patent - Extremities Exam Extremities Exam: absent: Calf Tenderness, Pedal Edema - Neurological Exam Neurological Exam: Alert, Awake, Oriented x3 - Psychiatric Exam Psychiatric exam: Normal Affect, Normal Mood Assessment and Plan - Assessment and Plan (Free Text) Assessment: 88F w. hx of smith's /small bowel resection in 2014, presenting w. abdominal pain -repeat CT shows increased fluid in pelvis and associated inflammatory changes w. 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
[2018-08-15] MEDS ORDERED: Midazolam 2 MG/2 ML VIAL ONE (16:02)
[2018-08-15] MEDS ORDERED: Lidocaine 1% Inj (20ml) ONE (16:03)
[2018-08-15 18:05] LABS: BODY FLUID TYPE PERITONEAL
--- NOTE | 2018-08-15 19:07 | CT ---
PROCEDURE: CT guided pelvic fluid aspiration HISTORY: Pelvic fluid collection. Evaluate for abscess. PHYSICIAN(S): Andrew Kearney MD. TECHNIQUE: The relative risks and indications of the procedure were explained to the patient and consent obtained. The patient was placed right decubitus position on the CT scanner and preliminary images through the pelvis obtained. Conscious sedation and monitoring were provided throughout the procedure by a nurse. There is a lobulated 6 cm fluid collection in the low pelvis between the uterus and the rectosigmoid colon. A left trans gluteal approach was selected and the area prepped and draped in the usual sterile fashion. 1% Xylocaine was used to anesthetize the skin and soft tissues. A 17-gauge guiding needle was advanced into the pelvic fluid collection. 75 cc of clear yellow fluid was aspirated. The fluid was not purulent. Specimens were sent for microbiology and cell count. IMPRESSION: 1. CT-guided pelvic fluid collection aspiration. Specimens sent for microbiology and cell count
[2018-08-15 21:36] LABS: BF GROSS APPEARANCE SL CLOUDY (CLEAR); BODY FLUID TOTAL COUNT 100 (0-0)
--- NOTE | 2018-08-16 05:13 | CP.PCM.PN ---
<Lin Toribio - Last Filed: 08/16/18 16:21> Subjective - Date & Time of Evaluation Date of Evaluation: 08/16/18 Time of Evaluation: 07:30 - Subjective Subjective: Pgy3 Medicine progress note for Dr. Ham Patient seen and examined at bedside. Patient is POD#1 IR aspiration of pelvic fluid. Nursing reported overnight patient had a temp 101.9F. Patient denied any pain overnight and reported feeling better and was more energetic this AM. Patient is eating well and had output in ostomy bag. Denied headache, dizziness, chest pain, palpitations, SOB, cough, nausea, vomiting, bladder complaints, pain /swelling in her legs bilaterally. Objective - Vital Signs/Intake and Output Vital Signs (last 24 hours): Temp Pulse Resp BP Pulse Ox 97.9 F 62 18 126/70 94 L 08/16/18 01:30 08/15/18 23:19 08/15/18 23:19 08/15/18 23:19 08/15/18 23:19 Intake and Output: 08/15/18 08/16/18 18:59 06:59 Intake Total 75 Balance 75 - Medications Medications: Current Medications Acetaminophen (Tylenol 325mg Tab) 650 mg PO Q4H PRN PRN Reason: Pain, Mild (1-3) Last Admin: 08/15/18 22:37 Dose: 650 mg Hydralazine HCl (Apresoline) 10 mg IVP Q6 PRN PRN Reason: Systolic Blood Pressure Last Admin: 08/15/18 06:16 Dose: 10 mg Piperacillin Sod/Tazobactam Sod (Zosyn 3.375 In Ns 100ml) 100 mls @ 25 mls/hr IVPB Q8 [facility]; Protocol Stop: 08/21/18 22:01 Last Admin: 08/15/18 22:32 Dose: 25 mls/hr Ondansetron HCl (Zofran Inj) 4 mg IVP Q6H PRN PRN Reason: Nausea/Vomiting Prednisone (Prednisone Tab) 5 mg PO DAILY [facility] Last Admin: 08/15/18 11:45 Dose: 5 mg Pregabalin (Lyrica) 50 mg PO HS [facility] Last Admin: 08/15/18 22:32 Dose: 50 mg Verapamil HCl (Calan Sr Tab) 90 mg PO DAILY [facility] Last Admin: 08/15/18 11:45 Dose: 90 mg - Labs Labs: 08/15/18 06:40 08/15/18 06:40 - Additional Findings Additional findings: - Constitutional Appears: Non-toxic, No Acute Distress - Head Exam Head Exam: ATRAUMATIC, NORMAL INSPECTION, NORMOCEPHALIC - Eye Exam Eye Exam: EOMI, Normal appearance, PERRL. absent: Conjunctival injection, Scleral icterus - ENT Exam ENT Exam: Mucous Membranes Moist - Neck Exam Neck exam: Positive for: Full Rom, Normal Inspection - Respiratory Exam Respiratory Exam: Clear to Auscultation Bilateral, NORMAL BREATHING PATTERN. absent: Accessory Muscle Use, Rales, Rhonchi, Wheezes, Respiratory Distress - Cardiovascular Exam Cardiovascular Exam: REGULAR RHYTHM, +S1, +S2 - GI/Abdominal Exam GI & Abdominal Exam: Soft, Tenderness (lower abdomen). absent: Firm, Guarding, Rigid Additional comments: ostomy bag in place - Rectal Exam Rectal Exam: Deferred - Extremities Exam Extremities exam: Positive for: normal inspection, pedal pulses present. Negative for: pedal edema Additional comments: arthritic changes noted in b/l hands - Neurological Exam Neurological exam: Alert, CN II-XII Intact, Oriented x3 - Psychiatric Exam Psychiatric exam: Normal Affect, Normal Mood - Skin Skin Exam: Dry, Intact, Normal Color, Warm Assessment and Plan - Assessment and Plan (Free Text) Assessment: 1. Abdominal fluid collection r/o diverticular abscess 2. Leukocytosis- resolved 3. Asymptomatic UTI 4. Ostomy 5. Urinary incontinence 6. Rheumatoid Arthritis 7. HTN 8. Chronic Lower back pain 9. Chronic prendisone use 10. Gait dysfunction Plan: Patient's vitals, blood work, and imaging reviewed in chart. Patient had cultures drawn overnight after spiking temp. Continued on Zosyn and ID is on board. Patient's urine culture +Klebsiella. Patient's stoma in place and patent. CT Abd/pelvis reviewed. 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 Continue ostomy management. Continue home prednisone and Lyrica at this time. Continue Verapamil for HTN and patient has IV Hydralazine ordered for prn SBP > 160mmHg. Continue tylenol prn for pain and zofran prn for nausea. Will continue to monitor closely. Appreciate reccs of Surgery and ID. Patient has regular diet. PT on board for gait dysfunction. Discussed with Dr. Jitendra Toribio PGY3 <Sai Ham - Last Filed: 08/16/18 21:00> Objective - Vital Signs/Intake and Output Vital Signs (last 24 hours): Temp Pulse Resp BP Pulse Ox 97.4 F L 52 L 18 142/73 96 08/16/18 06:00 08/16/18 09:51 08/16/18 06:00 08/16/18 09:51 08/16/18 06:00 - Medications Medications: Current Medications Acetaminophen (Tylenol 325mg Tab) 650 mg PO Q4H PRN PRN Reason: Pain, Mild (1-3) Last Admin: 08/15/18 22:37 Dose: 650 mg Hydralazine HCl (Apresoline) 10 mg IVP Q6 PRN PRN Reason: Systolic Blood Pressure Last Admin: 08/15/18 06:16 Dose: 10 mg Piperacillin Sod/Tazobactam Sod (Zosyn 3.375 In Ns 100ml) 100 mls @ 25 mls/hr IVPB Q8 [facility]; Protocol Stop: 08/21/18 22:01 Last Admin: 08/16/18 16:54 Dose: 25 mls/hr Ondansetron HCl (Zofran Inj) 4 mg IVP Q6H PRN PRN Reason: Nausea/Vomiting Prednisone (Prednisone Tab) 5 mg PO DAILY [facility] Last Admin: 08/16/18 09:52 Dose: 5 mg Pregabalin (Lyrica) 50 mg PO HS [facility] Last Admin: 08/15/18 22:32 Dose: 50 mg Verapamil HCl (Calan Sr Tab) 90 mg PO DAILY [facility] Last Admin: 08/16/18 09:51 Dose: 90 mg - Labs Labs: 08/16/18 07:20 08/16/18 07:20 Assessment and Plan - Assessment and Plan (Free Text) Plan: Pt seen and examined by me. I have reviewed the note of the certified medical coder and I agree with it. I have discussed the assessment and plan with the resident. I have reviewed the medications and the last labs. Pt with Abd pain that is due to abscess. Rheumatoid arthritis is controlled. HTN is controlle with Verpamil. Back pain is controlled. She is eating better and able to sit and not have pain. She will get PT. Spoke to Dr Houston from surgery.
[2018-08-16] MEDS: Piperacillin/Tazobact 3.375 gm 100 ML IVPB SCH ×2 (05:28→16:54)
[2018-08-16 07:28] LABS: BASO # 0.03 K/mm3 (0.0-2.0); BASO % 0.5 % (0.0-3.0); EOS # 0.1 (0.0-0.7); GRAN # 4.59 (1.4-6.5); GRAN % 76.5 % (50.0-68.0); HEMOGLOBIN 10.8 g/dL (12.0-16.0); LYMPH # 0.7 (1.2-3.4); LYMPH % 11.5 % (22.0-35.0); MEAN CELL VOLUME 93.5 fl (80.0-105.0); MEAN CORPUSCULAR HEMOGLOBIN 30.6 pg (25.0-35.0); MEAN CORPUSCULAR HGB CONC 32.7 g/dl (31.0-37.0); MONO # 0.6 (0.1-0.6); MONO % 9.5 % (1.0-6.0); RBC 3.53 10^6/uL (3.5-6.1); RED CELL DISTRIBUTION WIDTH 14.7 % (11.5-14.5)
[2018-08-16 07:41] LABS: ALB/GLOB RATIO 1.1 (1.1-1.8); ALBUMIN 2.9 g/dL (3.0-4.8); CALCIUM 8.5 mg/dL (8.4-10.5)
--- NOTE | 2018-08-16 07:43 | CP.PCM.PN ---
Subjective - Date & Time of Evaluation Date of Evaluation: 08/16/18 Time of Evaluation: 07:40 - Subjective Subjective: Surgery PT seen and examined. Underwent IR drainage yesterday. foever of 101.9 overnight. Denies pain. Objective - Vital Signs/Intake and Output Vital Signs (last 24 hours): Temp Pulse Resp BP Pulse Ox 97.9 F 62 18 126/70 94 L 08/16/18 01:30 08/15/18 23:19 08/15/18 23:19 08/15/18 23:19 08/15/18 23:19 Intake and Output: 08/16/18 08/16/18 06:59 18:59 Intake Total 120 Balance 120 - Medications Medications: Current Medications Acetaminophen (Tylenol 325mg Tab) 650 mg PO Q4H PRN PRN Reason: Pain, Mild (1-3) Last Admin: 08/15/18 22:37 Dose: 650 mg Hydralazine HCl (Apresoline) 10 mg IVP Q6 PRN PRN Reason: Systolic Blood Pressure Last Admin: 08/15/18 06:16 Dose: 10 mg Piperacillin Sod/Tazobactam Sod (Zosyn 3.375 In Ns 100ml) 100 mls @ 25 mls/hr IVPB Q8 [facility]; Protocol Stop: 08/21/18 22:01 Last Admin: 08/16/18 05:28 Dose: 25 mls/hr Ondansetron HCl (Zofran Inj) 4 mg IVP Q6H PRN PRN Reason: Nausea/Vomiting Prednisone (Prednisone Tab) 5 mg PO DAILY [facility] Last Admin: 08/15/18 11:45 Dose: 5 mg Pregabalin (Lyrica) 50 mg PO [facility] Last Admin: 08/15/18 22:32 Dose: 50 mg Verapamil HCl (Calan Sr Tab) 90 mg PO DAILY [facility] Last Admin: 08/15/18 11:45 Dose: 90 mg - Labs Labs: 08/16/18 07:20 08/15/18 06:40 - Constitutional Appears: No Acute Distress - Head Exam Head Exam: ATRAUMATIC, NORMAL INSPECTION, NORMOCEPHALIC - Eye Exam Eye Exam: EOMI, Normal appearance, PERRL Pupil Exam: NORMAL ACCOMODATION, PERRL - ENT Exam ENT Exam: Mucous Membranes Moist, Normal Exam - Neck Exam Neck Exam: Full ROM, Normal Inspection. absent: Lymphadenopathy - Respiratory Exam Respiratory Exam: NORMAL BREATHING PATTERN - Cardiovascular Exam Cardiovascular Exam: REGULAR RHYTHM - GI/Abdominal Exam GI & Abdominal Exam: Soft. absent: Tenderness Additional comments: stoma pink, patent. 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 abdominal pain POD 1 s/p aspiration of pelvic fluids. Fluids : 3k WBC FEbrile -repeat CT shows increased fluid in pelvis and associated inflammatory changes w. 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
[2018-08-16] MEDS ORDERED: Potassium Chloride 40 mEq/30 ml LIQ UD PO ONE (08:49)
[2018-08-16] MEDS: Verapamil 180 mg ER Tab PO SCH (09:51)
--- NOTE | 2018-08-16 10:57 | CP.PCM.PN ---
<Beau Taylor - Last Filed: 08/16/18 12:47> Subjective - Date & Time of Evaluation Date of Evaluation: 08/16/18 Time of Evaluation: 09:15 - Subjective Subjective: ID Progress Note Patient seen and examined. Patient feels much improved after abscess drainage yesterday. Fever overnight. Denies chest pain, shortness of breath. Objective - Vital Signs/Intake and Output Vital Signs (last 24 hours): Temp Pulse Resp BP Pulse Ox 97.4 F L 52 L 18 142/73 96 08/16/18 06:00 08/16/18 09:51 08/16/18 06:00 08/16/18 09:51 08/16/18 06:00 Intake and Output: 08/16/18 08/16/18 06:59 18:59 Intake Total 120 Balance 120 - Medications Medications: Current Medications Acetaminophen (Tylenol 325mg Tab) 650 mg PO Q4H PRN PRN Reason: Pain, Mild (1-3) Last Admin: 08/15/18 22:37 Dose: 650 mg Hydralazine HCl (Apresoline) 10 mg IVP Q6 PRN PRN Reason: Systolic Blood Pressure Last Admin: 08/15/18 06:16 Dose: 10 mg Piperacillin Sod/Tazobactam Sod (Zosyn 3.375 In Ns 100ml) 100 mls @ 25 mls/hr IVPB Q8 [facility]; Protocol Stop: 08/21/18 22:01 Last Admin: 08/16/18 05:28 Dose: 25 mls/hr Ondansetron HCl (Zofran Inj) 4 mg IVP Q6H PRN PRN Reason: Nausea/Vomiting Prednisone (Prednisone Tab) 5 mg PO DAILY [facility] Last Admin: 08/16/18 09:52 Dose: 5 mg Pregabalin (Lyrica) 50 mg PO HS [facility] Last Admin: 08/15/18 22:32 Dose: 50 mg Verapamil HCl (Calan Sr Tab) 90 mg PO DAILY [facility] Last Admin: 08/16/18 09:51 Dose: 90 mg - Labs Labs: 08/16/18 07:20 08/16/18 07:20 - Constitutional Appears: Non-toxic, No Acute Distress - Head Exam Head Exam: ATRAUMATIC, NORMAL INSPECTION, NORMOCEPHALIC - ENT Exam ENT Exam: Mucous Membranes Moist - Respiratory Exam Respiratory Exam: Decreased Breath Sounds, NORMAL BREATHING PATTERN. absent: Rales, Rhonchi, Wheezes - Cardiovascular Exam Cardiovascular Exam: RRR, +S1, +S2 - GI/Abdominal Exam GI & Abdominal Exam: Soft, Normal Bowel Sounds. absent: Tenderness Additional comments: Colostomy - Extremities Exam Extremities Exam: Normal Inspection. absent: Pedal Edema - Neurological Exam Neurological Exam: Alert, Awake, CN II-XII Intact, Oriented x3 - Psychiatric Exam Psychiatric exam: Normal Affect, Normal Mood - Skin Skin Exam: Dry, Intact, Warm Assessment and Plan - Assessment and Plan (Free Text) Plan: Abdominal abscess s/p drainage Asymptomatic bacteuria Hx of diverticulitis Hx of HTN Hx of rheumatoid arthritis Plan CT abdomen/pelvis reviewed, demonstrates abdominal fluid collection/abscess S/p IR drainage, fluid cultures pending Continue Zosyn pending cultures Urine culture demonstrates Klebsiella oxytoca, no need for treatment as patient is asymptomatic Follow up blood cultures Brandon, PGY-3 <Stiven Dickens S - Last Filed: 08/16/18 14:34> Objective - Vital Signs/Intake and Output Vital Signs (last 24 hours): Temp Pulse Resp BP Pulse Ox 97.4 F L 52 L 18 142/73 96 08/16/18 06:00 08/16/18 09:51 08/16/18 06:00 08/16/18 09:51 08/16/18 06:00 Intake and Output: 08/16/18 08/16/18 06:59 18:59 Intake Total 120 Balance 120 - Medications Medications: Current Medications Acetaminophen (Tylenol 325mg Tab) 650 mg PO Q4H PRN PRN Reason: Pain, Mild (1-3) Last Admin: 08/15/18 22:37 Dose: 650 mg Hydralazine HCl (Apresoline) 10 mg IVP Q6 PRN PRN Reason: Systolic Blood Pressure Last Admin: 08/15/18 06:16 Dose: 10 mg Piperacillin Sod/Tazobactam Sod (Zosyn 3.375 In Ns 100ml) 100 mls @ 25 mls/hr IVPB Q8 [facility]; Protocol Stop: 08/21/18 22:01 Last Admin: 08/16/18 05:28 Dose: 25 mls/hr Ondansetron HCl (Zofran Inj) 4 mg IVP Q6H PRN PRN Reason: Nausea/Vomiting Prednisone (Prednisone Tab) 5 mg PO DAILY [facility] Last Admin: 08/16/18 09:52 Dose: 5 mg Pregabalin (Lyrica) 50 mg PO HS [facility] Last Admin: 08/15/18 22:32 Dose: 50 mg Verapamil HCl (Calan Sr Tab) 90 mg PO DAILY [facility] Last Admin: 08/16/18 09:51 Dose: 90 mg - Labs Labs: 08/16/18 07:20 08/16/18 07:20 Assessment and Plan - Assessment and Plan (Free Text) Plan: Infectious diseases Attending Physician Attestation Patient seen and examined, discussed with emergency medical technician basic. I have reviewed the patient's history of present illness, past medical, social, personal and family histories, pertinent physical exam findings, course so far in this hospital admission, pertinent laboratory and imaging results. I agree with the above findings, assessment and plan. In addition, will await fluid cultures to guide antibiotic therapy for patient with intra-abdominal fluid collection consider abscess. Will continue Zosyn for now.
--- NOTE | 2018-08-16 16:06 | PN ---
DATE: 08/16/2018 SUBJECTIVE: The patient was seen on the floor. Her abdomen is soft and nontender. Feels remarkably better after the fluid was aspirated from her abdomen. The fluid is cloudy number of granulocytes. 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 There is a fair amount of retained black hard stool in the rectum. We will start breaking it up digitally and with mild suppositories and may be some enemas to follow, but her abdomen right now is soft, she is nontender and can resume diet. Handy Houston MD
[2018-08-17] MEDS: Piperacillin/Tazobact 3.375 gm 100 ML IVPB SCH ×3 (01:18→17:31)
[2018-08-17 07:49] LABS: BASO # 0.03 K/mm3 (0.0-2.0); BASO % 0.3 % (0.0-3.0); EOS # 0.2 (0.0-0.7); GRAN # 7.17 (1.4-6.5); GRAN % 78.8 % (50.0-68.0); LYMPH # 0.9 (1.2-3.4); LYMPH % 10.1 % (22.0-35.0); MEAN CELL VOLUME 93.4 fl (80.0-105.0); MEAN CORPUSCULAR HEMOGLOBIN 30.2 pg (25.0-35.0); MEAN CORPUSCULAR HGB CONC 32.4 g/dl (31.0-37.0); MEAN PLATELET VOLUME 9.2 fl (7.0-11.0); MONO # 0.8 (0.1-0.6); MONO % 8.8 % (1.0-6.0); RBC 3.31 10^6/uL (3.5-6.1); RED CELL DISTRIBUTION WIDTH 14.8 % (11.5-14.5); WHITE BLOOD COUNT 9.1 10^3/uL (4.5-11.0)
[2018-08-17 08:10] LABS: ALB/GLOB RATIO 1.1 (1.1-1.8); ALBUMIN 2.8 g/dL (3.0-4.8); CALCIUM 8.6 mg/dL (8.4-10.5)
[2018-08-17] MEDS: Verapamil 180 mg ER Tab PO SCH (10:12)
[2018-08-17] MEDS ORDERED: Mineral Oil Enema 135 ml RC ONE (10:19)
--- NOTE | 2018-08-17 10:24 | CP.PCM.PN ---
Subjective - Date & Time of Evaluation Date of Evaluation: 08/17/18 Time of Evaluation: 10:21 - Subjective Subjective: Surgery: Dr. Houston Pt seen and examined. She has no complaints of abdominal pain. Despite being given suppositories and enemas, she has yet to have a BM. Objective - Vital Signs/Intake and Output Vital Signs (last 24 hours): Temp Pulse Resp BP Pulse Ox 98.3 F 65 18 163/85 H 96 08/17/18 06:00 08/17/18 10:12 08/17/18 06:00 08/17/18 10:12 08/17/18 06:00 Intake and Output: 08/17/18 08/17/18 06:59 18:59 Intake Total 120 Balance 120 - Medications Medications: Current Medications Acetaminophen (Tylenol 325mg Tab) 650 mg PO Q4H PRN PRN Reason: Pain, Mild (1-3) Last Admin: 08/15/18 22:37 Dose: 650 mg Hydralazine HCl (Apresoline) 10 mg IVP Q6 PRN PRN Reason: Systolic Blood Pressure Last Admin: 08/15/18 06:16 Dose: 10 mg Piperacillin Sod/Tazobactam Sod (Zosyn 3.375 In Ns 100ml) 100 mls @ 25 mls/hr IVPB Q8 [facility]; Protocol Stop: 08/21/18 22:01 Last Admin: 08/17/18 10:12 Dose: 25 mls/hr Mineral Oil (Fleet Mineral Oil Enema) 135 ml RC ONCE ONE Stop: 08/17/18 10:20 Ondansetron HCl (Zofran Inj) 4 mg IVP Q6H PRN PRN Reason: Nausea/Vomiting Prednisone (Prednisone Tab) 5 mg PO DAILY [facility] Last Admin: 08/17/18 10:12 Dose: 5 mg Pregabalin (Lyrica) 50 mg PO HS [facility] Last Admin: 08/16/18 21:53 Dose: 50 mg Verapamil HCl (Calan Sr Tab) 90 mg PO DAILY [facility] Last Admin: 08/17/18 10:12 Dose: 90 mg - Labs Labs: 08/17/18 07:40 08/17/18 07:40 - Constitutional Appears: Non-toxic, No Acute Distress - Head Exam Head Exam: ATRAUMATIC, NORMOCEPHALIC - Eye Exam Eye Exam: EOMI - ENT Exam ENT Exam: Mucous Membranes Moist - Neck Exam Neck Exam: Full ROM - Respiratory Exam Respiratory Exam: NORMAL BREATHING PATTERN. absent: Accessory Muscle Use, Respiratory Distress - GI/Abdominal Exam GI & Abdominal Exam: Soft. absent: Distended, Firm, Guarding, Rigid, Tenderness, Rebound Additional comments: stoma pink and patent - Extremities Exam Extremities Exam: absent: Calf Tenderness, Pedal Edema - Neurological Exam Neurological Exam: Alert, Awake, Oriented x3 Assessment and Plan - Assessment and Plan (Free Text) Assessment: 88F w. hx of diverticulitis, s/p barron 2014 presenting w. abdominal pain w. 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
--- NOTE | 2018-08-17 10:50 | CP.PCM.PN ---
<Beau Taylor - Last Filed: 08/17/18 13:21> Subjective - Date & Time of Evaluation Date of Evaluation: 08/17/18 Time of Evaluation: 10:15 - Subjective Subjective: ID Progress Note Patient seen and examined. Patient doing well with no pain. No fevers overnight. Objective - Vital Signs/Intake and Output Vital Signs (last 24 hours): Temp Pulse Resp BP Pulse Ox 98.3 F 65 18 163/85 H 96 08/17/18 06:00 08/17/18 10:12 08/17/18 06:00 08/17/18 10:12 08/17/18 06:00 Intake and Output: 08/17/18 08/17/18 06:59 18:59 Intake Total 120 Balance 120 - Medications Medications: Current Medications Acetaminophen (Tylenol 325mg Tab) 650 mg PO Q4H PRN PRN Reason: Pain, Mild (1-3) Last Admin: 08/15/18 22:37 Dose: 650 mg Hydralazine HCl (Apresoline) 10 mg IVP Q6 PRN PRN Reason: Systolic Blood Pressure Last Admin: 08/15/18 06:16 Dose: 10 mg Piperacillin Sod/Tazobactam Sod (Zosyn 3.375 In Ns 100ml) 100 mls @ 25 mls/hr IVPB Q8 [facility]; Protocol Stop: 08/21/18 22:01 Last Admin: 08/17/18 10:12 Dose: 25 mls/hr Ondansetron HCl (Zofran Inj) 4 mg IVP Q6H PRN PRN Reason: Nausea/Vomiting Prednisone (Prednisone Tab) 5 mg PO DAILY [facility] Last Admin: 08/17/18 10:12 Dose: 5 mg Pregabalin (Lyrica) 50 mg PO HS [facility] Last Admin: 08/16/18 21:53 Dose: 50 mg Verapamil HCl (Calan Sr Tab) 90 mg PO DAILY [facility] Last Admin: 08/17/18 10:12 Dose: 90 mg - Labs Labs: 08/17/18 07:40 08/17/18 07:40 - Constitutional Appears: Non-toxic, No Acute Distress - Head Exam Head Exam: ATRAUMATIC, NORMAL INSPECTION, NORMOCEPHALIC - ENT Exam ENT Exam: Mucous Membranes Moist - Respiratory Exam Respiratory Exam: Clear to Ausculation Bilateral, NORMAL BREATHING PATTERN - Cardiovascular Exam Cardiovascular Exam: RRR, +S1, +S2 - GI/Abdominal Exam GI & Abdominal Exam: Soft, Normal Bowel Sounds. absent: Tenderness Additional comments: Colostomy in place - Neurological Exam Neurological Exam: Alert, Awake, Oriented x3 - Psychiatric Exam Psychiatric exam: Normal Affect, Normal Mood - Skin Skin Exam: Intact, Normal Color, Warm Assessment and Plan - Assessment and Plan (Free Text) Plan: Abdominal abscess s/p drainage Asymptomatic bacteuria Hx of diverticulitis Hx of HTN Hx of Rheumatoid Arthritis Plan CT abdomen/pelvis reviewed S/p IR drainage, fluid cultures pending Continue Zosyn pending cultures Urine culture demonstrates Klebsiella oxytoca, no need for treatment as patient is asymptomatic Blood culture negative Brandon, PGY-3 <Stiven Dickens S - Last Filed: 08/17/18 14:20> Objective - Vital Signs/Intake and Output Vital Signs (last 24 hours): Temp Pulse Resp BP Pulse Ox 98.3 F 65 18 163/85 H 96 08/17/18 06:00 08/17/18 10:12 08/17/18 06:00 08/17/18 10:12 08/17/18 06:00 Intake and Output: 08/17/18 08/17/18 06:59 18:59 Intake Total 120 Balance 120 - Medications Medications: Current Medications Acetaminophen (Tylenol 325mg Tab) 650 mg PO Q4H PRN PRN Reason: Pain, Mild (1-3) Last Admin: 08/15/18 22:37 Dose: 650 mg Hydralazine HCl (Apresoline) 10 mg IVP Q6 PRN PRN Reason: Systolic Blood Pressure Last Admin: 08/15/18 06:16 Dose: 10 mg Piperacillin Sod/Tazobactam Sod (Zosyn 3.375 In Ns 100ml) 100 mls @ 25 mls/hr IVPB Q8 [facility]; Protocol Stop: 08/21/18 22:01 Last Admin: 08/17/18 10:12 Dose: 25 mls/hr Ondansetron HCl (Zofran Inj) 4 mg IVP Q6H PRN PRN Reason: Nausea/Vomiting Prednisone (Prednisone Tab) 5 mg PO DAILY [facility] Last Admin: 08/17/18 10:12 Dose: 5 mg Pregabalin (Lyrica) 50 mg PO HS [facility] Last Admin: 08/16/18 21:53 Dose: 50 mg Verapamil HCl (Calan Sr Tab) 90 mg PO DAILY [facility] Last Admin: 08/17/18 10:12 Dose: 90 mg - Labs Labs: 08/17/18 07:40 08/17/18 07:40 Assessment and Plan - Assessment and Plan (Free Text) Plan: Infectious diseases Attending Physician Attestation Patient seen and examined, discussed with medical intern. I have reviewed the patient's history of present illness, past medical, social, personal and family histories, pertinent physical exam findings, course so far in this hospital admission, pertinent laboratory and imaging results. I agree with the above findings, assessment and plan. In addition, continue Zosyn for possible intra-abdominal abscess S/P IR-guided drainage. Follow up culture results.
[2018-08-18] MEDS: Piperacillin/Tazobact 3.375 gm 100 ML IVPB SCH ×3 (01:47→17:20)
[2018-08-18] MEDS ORDERED: Mineral Oil Enema 135 ml RC ONE (07:47)
--- NOTE | 2018-08-18 07:50 | CP.PCM.PN ---
Subjective - Date & Time of Evaluation Date of Evaluation: 08/18/18 Time of Evaluation: 07:49 - Subjective Subjective: Surgery: Dr. Houston Pt seen and examined. Resting comfortably in bed. No abdominal pain. Tolerating diet. Has yet to have BM w. mineral oil enemas. Objective - Vital Signs/Intake and Output Vital Signs (last 24 hours): Temp Pulse Resp BP Pulse Ox 98.0 F 61 18 114/60 95 08/17/18 22:00 08/18/18 06:52 08/17/18 22:00 08/18/18 06:52 08/17/18 22:00 - Medications Medications: Current Medications Acetaminophen (Tylenol 325mg Tab) 650 mg PO Q4H PRN PRN Reason: Pain, Mild (1-3) Last Admin: 08/18/18 05:39 Dose: 650 mg Hydralazine HCl (Apresoline) 10 mg IVP Q6 PRN PRN Reason: Systolic Blood Pressure Last Admin: 08/18/18 05:39 Dose: 10 mg Piperacillin Sod/Tazobactam Sod (Zosyn 3.375 In Ns 100ml) 100 mls @ 25 mls/hr IVPB Q8 [facility]; Protocol Stop: 08/21/18 22:01 Last Admin: 08/18/18 01:47 Dose: 25 mls/hr Ondansetron HCl (Zofran Inj) 4 mg IVP Q6H PRN PRN Reason: Nausea/Vomiting Prednisone (Prednisone Tab) 5 mg PO DAILY [facility] Last Admin: 08/17/18 10:12 Dose: 5 mg Pregabalin (Lyrica) 50 mg PO [facility] Last Admin: 08/17/18 22:06 Dose: 50 mg Verapamil HCl (Calan Sr Tab) 90 mg PO DAILY [facility] Last Admin: 08/17/18 10:12 Dose: 90 mg - Labs Labs: 08/17/18 07:40 08/17/18 07:40 - Constitutional Appears: Non-toxic, No Acute Distress - Head Exam Head Exam: ATRAUMATIC, NORMOCEPHALIC - Eye Exam Eye Exam: EOMI - ENT Exam ENT Exam: Mucous Membranes Moist - Neck Exam Neck Exam: Full ROM - Respiratory Exam Respiratory Exam: NORMAL BREATHING PATTERN. absent: Accessory Muscle Use, Respiratory Distress - GI/Abdominal Exam GI & Abdominal Exam: Soft. absent: Distended, Firm, Guarding, Rigid, Tenderness, Rebound Additional comments: Stoma pink and patent - Extremities Exam Extremities Exam: absent: Calf Tenderness - Neurological Exam Neurological Exam: Alert, Awake, Oriented x3 - Psychiatric Exam Psychiatric exam: Normal Affect, Normal Mood Assessment and Plan - Assessment and Plan (Free Text) Assessment: 88F w. hx of diverticulitis, s/p barron 2014 presenting w. abdominal pain w. 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
[2018-08-18 08:03] LABS: BASO # 0.04 K/mm3 (0.0-2.0); BASO % 0.5 % (0.0-3.0); EOS # 0.2 (0.0-0.7); EOS % 3.1 % (1.5-5.0); HEMOGLOBIN 10.5 g/dL (12.0-16.0); LYMPH # 0.9 (1.2-3.4); LYMPH % 12.3 % (22.0-35.0); MEAN CELL VOLUME 93.7 fl (80.0-105.0); MEAN CORPUSCULAR HEMOGLOBIN 29.9 pg (25.0-35.0); MEAN CORPUSCULAR HGB CONC 31.9 g/dl (31.0-37.0); MEAN PLATELET VOLUME 9.3 fl (7.0-11.0); MONO # 0.7 (0.1-0.6); MONO % 9.5 % (1.0-6.0); RBC 3.51 10^6/uL (3.5-6.1); RED CELL DISTRIBUTION WIDTH 14.9 % (11.5-14.5); WHITE BLOOD COUNT 7.5 10^3/uL (4.5-11.0)
[2018-08-18 08:27] LABS: ALB/GLOB RATIO 1.1 (1.1-1.8); ALT/SGPT 21 U/L (7-56); AST/SGOT 22 U/L (14-36); BLOOD UREA NITROGEN 15 mg/dL (7-21); CALCIUM 8.9 mg/dL (8.4-10.5); GFR NON-AFRICAN AMERICAN 53
--- NOTE | 2018-08-18 08:27 | CP.PCM.PN ---
<Lin Toribio - Last Filed: 08/18/18 11:01> Subjective - Date & Time of Evaluation Date of Evaluation: 08/18/18 Time of Evaluation: 07:15 - Subjective Subjective: Pgy3 Medicine progress note for Dr. Ham Patient seen and examined at bedside. Patient is POD#3 IR aspiration of pelvic fluid. As per nursing no acute events overnight. Patient was resting comfortably and denied acute complaints of fever, chills, headache, dizziness, chest pain, palpitations, SOB, cough, abd pain, nausea, vomiting, dysuria, pain/swelling in her legs bilaterally. Patient is tolerating diet but has yet to have BM with mineral oil enemas. Patient requesting her methotrexate 2.5mg 4 tabs which she takes every Monday. Objective - Vital Signs/Intake and Output Vital Signs (last 24 hours): Temp Pulse Resp BP Pulse Ox 97.5 F L 57 L 18 114/60 98 08/18/18 07:00 08/18/18 07:00 08/18/18 07:00 08/18/18 07:00 08/18/18 07:00 - Medications Medications: Current Medications Acetaminophen (Tylenol 325mg Tab) 650 mg PO Q4H PRN PRN Reason: Pain, Mild (1-3) Last Admin: 08/18/18 05:39 Dose: 650 mg Hydralazine HCl (Apresoline) 10 mg IVP Q6 PRN PRN Reason: Systolic Blood Pressure Last Admin: 08/18/18 05:39 Dose: 10 mg Piperacillin Sod/Tazobactam Sod (Zosyn 3.375 In Ns 100ml) 100 mls @ 25 mls/hr IVPB Q8 [facility]; Protocol Stop: 08/21/18 22:01 Last Admin: 08/18/18 01:47 Dose: 25 mls/hr Ondansetron HCl (Zofran Inj) 4 mg IVP Q6H PRN PRN Reason: Nausea/Vomiting Prednisone (Prednisone Tab) 5 mg PO DAILY [facility] Last Admin: 08/17/18 10:12 Dose: 5 mg Pregabalin (Lyrica) 50 mg PO HS [facility] Last Admin: 08/17/18 22:06 Dose: 50 mg Verapamil HCl (Calan Sr Tab) 90 mg PO DAILY [facility] Last Admin: 01/25/19 10:12 Dose: 90 mg - Labs Labs: 08/18/18 07:30 08/17/18 07:40 - Additional Findings Additional findings: - Constitutional Appears: Non-toxic, No Acute Distress - Head Exam Head Exam: ATRAUMATIC, NORMAL INSPECTION, NORMOCEPHALIC - Eye Exam Eye Exam: EOMI, Normal appearance, PERRL. absent: Conjunctival injection, Scleral icterus - ENT Exam ENT Exam: Mucous Membranes Moist - Neck Exam Neck exam: Positive for: Full Rom, Normal Inspection - Respiratory Exam Respiratory Exam: Clear to Auscultation Bilateral, NORMAL BREATHING PATTERN. absent: Accessory Muscle Use, Rales, Rhonchi, Wheezes, Respiratory Distress - Cardiovascular Exam Cardiovascular Exam: REGULAR RHYTHM, +S1, +S2 - GI/Abdominal Exam GI & Abdominal Exam: Soft absent: Tenderness, Firm, Guarding, Rigid Additional comments: stoma pink and patent - Rectal Exam Rectal Exam: Deferred - Extremities Exam Extremities exam: Positive for: normal inspection, pedal pulses present. Negative for: pedal edema Additional comments: arthritic changes noted in b/l hands - Neurological Exam Neurological exam: Alert, CN II-XII Intact, Oriented x3 - Psychiatric Exam Psychiatric exam: Normal Affect, Normal Mood - Skin Skin Exam: Dry, Intact, Normal Color, Warm Assessment and Plan - Assessment and Plan (Free Text) Assessment: 1. Abdominal fluid collection likely secondary to pochitis vs diverticular abscess 2. Leukocytosis- resolved 3. Asymptomatic UTI 4. Retained stool in rectum 5. Ostomy 6. Urinary incontinence 7. Chronic Rheumatoid Arthritis 8. Chronic HTN 9. 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 Gait dysfunction Plan: Patient's vitals, blood work, and imaging reviewed in chart. Patient repeat blood cultures x 2 have been prelim negative. Patient's pelvic fluid collection final anaerobes negative; pending fungal culture. Continued on Zosyn and ID is on board. Patient's urine culture +Klebsiella. Patient had a large amount of retained stool in rectum on CT. Patient was attempted bedside disimpaction to no avail. Continue with daily mineral oil enema until patient has BM as per surgery. Continue ostomy management and monitoring output. Continue home prednisone and Lyrica at this time. Patient to received home dose of Methotrexate for Rheumatoid Arthritis which she takes weekly. Continue Verapamil for HTN and patient has IV Hydralazine ordered for prn SBP > 160mmHg. Continue tylenol prn for pain and zofran prn for nausea. Will continue to monitor closely. Appreciate reccs of Surgery and ID. Patient has regular diet. PT on board for gait dysfunction and recommended TCU. TCU eval placed. If patient is not agreeable with TCU/[facility] PT recommends home with services. Discussed with Dr. Jitendra Toribio PGY3 <Sai Ham - Last Filed: 08/18/18 11:32> Objective - Vital Signs/Intake and Output Vital Signs (last 24 hours): Temp Pulse Resp BP Pulse Ox 97.5 F L 57 L 18 114/60 98 08/18/18 07:00 08/18/18 07:00 08/18/18 07:00 08/18/18 07:00 08/18/18 07:00 - Medications Medications: Current Medications Acetaminophen (Tylenol 325mg Tab) 650 mg PO Q4H PRN PRN Reason: Pain, Mild (1-3) Last Admin: 08/18/18 05:39 Dose: 650 mg Hydralazine HCl (Apresoline) 10 mg IVP Q6 PRN PRN Reason: Systolic Blood Pressure Last Admin: 08/18/18 05:39 Dose: 10 mg Piperacillin Sod/Tazobactam Sod (Zosyn 3.375 In Ns 100ml) 100 mls @ 25 mls/hr IVPB Q8 [facility]; Protocol Stop: 08/21/18 22:01 Last Admin: 08/18/18 09:53 Dose: 25 mls/hr Methotrexate (Methotrexate) 10 mg PO QWK [facility] Ondansetron HCl (Zofran Inj) 4 mg IVP Q6H PRN PRN Reason: Nausea/Vomiting Prednisone (Prednisone Tab) 5 mg PO DAILY [facility] Last Admin: 08/18/18 09:53 Dose: 5 mg Pregabalin (Lyrica) 50 mg PO HS [facility] Last Admin: 08/17/18 22:06 Dose: 50 mg Verapamil HCl (Calan Sr Tab) 90 mg PO DAILY [facility] Last Admin: 08/18/18 09:53 Dose: 90 mg - Labs Labs: 08/18/18 07:30 08/18/18 07:30 Assessment and Plan - Assessment and Plan (Free Text) Plan: Pt seen and examined by me. I have reviewed the note of the medical investigator and I agree with it. I have discussed the assessment and plan with the resident. I have reviewed the medications and the last labs. Pt with abd pain due to abscess has improved. She is eating better and able to ambulate. Waiting for culture results and clearance by ID. Her rheumatoid arthritis is controlled as well as her back pain. She has HTN and is on Verpamil. She is refusing to go toTCU and prefers home.
[2018-08-18] MEDS ORDERED: Potassium Chloride 20 mEq ER Tab PO ONE (09:35)
[2018-08-18] MEDS: Verapamil 180 mg ER Tab PO SCH (09:53)
--- NOTE | 2018-08-18 13:20 | CP.PCM.PN ---
<Lin Toribio - Last Filed: 08/18/18 13:23> Subjective - Date & Time of Evaluation Date of Evaluation: 08/17/18 Time of Evaluation: 06:45 - Subjective Subjective: Pgy3 Medicine progress note for Dr. Ham Patient seen and examined at bedside. Nursing reported no acute events overnight. Patient is POD#2 IR aspiration of pelvic fluid. Patient afebrile and denied acute complaints of fever, chills, headache, dizziness, chest pain, palpitations, SOB, cough, abd pain, nausea, vomiting, dysuria, pain/swelling in her legs bilaterally. Patient is tolerating diet but has yet to have BM Objective - Vital Signs/Intake and Output Vital Signs (last 24 hours): Temp Pulse Resp BP Pulse Ox 97.5 F L 57 L 18 114/60 98 08/18/18 07:00 08/18/18 07:00 08/18/18 07:00 08/18/18 07:00 08/18/18 07:00 - Medications Medications: Current Medications Acetaminophen (Tylenol 325mg Tab) 650 mg PO Q4H PRN PRN Reason: Pain, Mild (1-3) Last Admin: 08/18/18 05:39 Dose: 650 mg Hydralazine HCl (Apresoline) 10 mg IVP Q6 PRN PRN Reason: Systolic Blood Pressure Last Admin: 08/18/18 05:39 Dose: 10 mg Piperacillin Sod/Tazobactam Sod (Zosyn 3.375 In Ns 100ml) 100 mls @ 25 mls/hr IVPB Q8 [facility]; Protocol Stop: 08/21/18 22:01 Last Admin: 08/18/18 09:53 Dose: 25 mls/hr Methotrexate (Methotrexate) 10 mg PO QWK [facility] Last Admin: 08/18/18 11:26 Dose: 10 mg Ondansetron HCl (Zofran Inj) 4 mg IVP Q6H PRN PRN Reason: Nausea/Vomiting Prednisone (Prednisone Tab) 5 mg PO DAILY [facility] Last Admin: 08/18/18 09:53 Dose: 5 mg Pregabalin (Lyrica) 50 mg PO HS [facility] Last Admin: 08/17/18 22:06 Dose: 50 mg Verapamil HCl (Calan Sr Tab) 90 mg PO DAILY [facility] Last Admin: 08/18/18 09:53 Dose: 90 mg - Labs Labs: 08/18/18 07:30 08/18/18 07:30 - Additional Findings Additional findings: - Constitutional Appears: Non-toxic, No Acute Distress - Head Exam Head Exam: ATRAUMATIC, NORMAL INSPECTION, NORMOCEPHALIC - Eye Exam Eye Exam: EOMI, Normal appearance, PERRL. absent: Conjunctival injection, Scleral icterus - ENT Exam ENT Exam: Mucous Membranes Moist - Neck Exam Neck exam: Positive for: Full Rom, Normal Inspection - Respiratory Exam Respiratory Exam: Clear to Auscultation Bilateral, NORMAL BREATHING PATTERN. a bsent: Accessory Muscle Use, Rales, Rhonchi, Wheezes, Respiratory Distress - Cardiovascular Exam Cardiovascular Exam: REGULAR RHYTHM, +S1, +S2 - GI/Abdominal Exam GI & Abdominal Exam: Soft absent: Tenderness, Firm, Guarding, Rigid Additional comments: stoma pink and patent - Rectal Exam Rectal Exam: Deferred - Extremities Exam Extremities exam: Positive for: normal inspection, pedal pulses present. Negative for: pedal edema Additional comments: arthritic changes noted in b/l hands - Neurological Exam Neurological exam: Alert, CN II-XII Intact, Oriented x3 - Psychiatric Exam Psychiatric exam: Normal Affect, Normal Mood - Skin Skin Exam: Dry, Intact, Normal Color, Warm Assessment and Plan - Assessment and Plan (Free Text) Assessment: 1. Abdominal fluid collection likely secondary to pochitis vs diverticular abscess 2. Leukocytosis- resolved 3. Asymptomatic UTI 4. Retained stool in rectum 5. Ostomy 6. Urinary incontinence 7. Chronic Rheumatoid Arthritis 8. Chronic HTN 9. 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 Gait dysfunction Plan: Patient's vitals, blood work, and imaging reviewed in chart. Patient repeat blood cultures x 2 have been prelim negative. Patient's pelvic fluid cultures pending. Continue Zosyn as per ID. Patient's urine culture +Klebsiella. Patient had a large amount of retained stool in rectum on CT. Continue with enemas and bowel regimen as per surgery. Continue ostomy management and monitoring output. Continue home prednisone and Lyrica at this time. Continue Verapamil for HTN and patient has IV Hydralazine ordered for prn SBP > 160mmHg. Continue tylenol prn for pain and zofran prn for nausea. Will continue to monitor closely. Appreciate reccs of Surgery and ID. Patient has regular diet. PT on board for gait dysfunction and recommended TCU. TCU eval placed. If patient is not agreeable with TCU/[facility] PT recommends home with services. Discussed with Dr. Jitendra Toribio PGY3 <Sai Ham - Last Filed: 08/18/18 19:39> Objective - Vital Signs/Intake and Output Vital Signs (last 24 hours): Temp Pulse Resp BP Pulse Ox 97.4 F L 55 L 20 121/56 L 99 08/18/18 14:02 08/18/18 14:02 08/18/18 14:02 08/18/18 14:02 08/18/18 14:02 - Medications Medications: Current Medications Acetaminophen (Tylenol 325mg Tab) 650 mg PO Q4H PRN PRN Reason: Pain, Mild (1-3) Last Admin: 08/18/18 05:39 Dose: 650 mg Hydralazine HCl (Apresoline) 10 mg IVP Q6 PRN PRN Reason: Systolic Blood Pressure Last Admin: 08/18/18 05:39 Dose: 10 mg Piperacillin Sod/Tazobactam Sod (Zosyn 3.375 In Ns 100ml) 100 mls @ 25 mls/hr IVPB Q8 [facility]; Protocol Stop: 08/21/18 22:01 Last Admin: 08/18/18 17:20 Dose: 25 mls/hr Methotrexate (Methotrexate) 10 mg PO QWK [facility] Last Admin: 08/18/18 11:26 Dose: 10 mg Ondansetron HCl (Zofran Inj) 4 mg IVP Q6H PRN PRN Reason: Nausea/Vomiting Prednisone (Prednisone Tab) 5 mg PO DAILY [facility] Last Admin: 08/18/18 09:53 Dose: 5 mg Pregabalin (Lyrica) 50 mg PO HS [facility] Last Admin: 08/17/18 22:06 Dose: 50 mg Verapamil HCl (Calan Sr Tab) 90 mg PO DAILY [facility] Last Admin: 08/18/18 09:53 Dose: 90 mg - Labs Labs: 08/18/18 07:30 08/18/18 07:30 Assessment and Plan - Assessment and Plan (Free Text) Plan: Pt seen and examined by me. I have reviewed the note of the biomedical specialist and I agree with it. I have discussed the assessment and plan with the resident. I have reviewed the medications and the last labs. Pt with BCx is negative. She remains on Zosyn for her abd abscess. She is on Verapmain for HT. She is able to ambulate. Rheumatoid arthritis is controlled.Chronic back pain controlled. Eating better. Waiting for final cultures of abdomen.
--- NOTE | 2018-08-18 16:56 | PN ---
DATE: 08/18/2018 SUBJECTIVE: The patient is in bed in no acute distress. PHYSICAL EXAMINATION: VITAL SIGNS: The patient's temperature is 97, blood pressure is 114/60, respiratory rate of 18. HEENT: Unremarkable. NECK: Supple. LUNGS: Have decreased breath sounds. HEART: Normal S1, S2. ABDOMEN: Soft, nontender. LABORATORY EXAMINATION: Reveals the patient's white count to be 7.5, hemoglobin of 10, platelets of 350. Chemistries are noted and urinalysis is noted and microbiology is reviewed. The patient's urine culture is Klebsiella. The blood cultures are negative. No anaerobes are growing from the pleura and Dr. Ham's note is reviewed. ASSESSMENT AND PLAN: This is an 88-year-old female with abdominal abscess, status post drainage. History of diverticulitis, asymptomatic bacteriuria, currently on Zosyn. We will continue present course. Elliot Anutnez MD
[2018-08-19] MEDS: Piperacillin/Tazobact 3.375 gm 100 ML IVPB SCH ×4 (01:42→22:56)
[2018-08-19] MEDS ORDERED: Mineral Oil Enema 135 ml RC ONE (08:14)
--- NOTE | 2018-08-19 08:22 | CP.PCM.PN ---
Subjective - Date & Time of Evaluation Date of Evaluation: 08/19/18 Time of Evaluation: 08:18 - Subjective Subjective: Surgery No acute events. Stoma patent. No stool from rectum evacuated despite multiple enema and suppository. Pt wishes to try one more oil enema today before deciding on going to OR. Objective - Vital Signs/Intake and Output Vital Signs (last 24 hours): Temp Pulse Resp BP Pulse Ox 98.1 F 56 L 18 146/60 96 08/18/18 22:02 08/18/18 22:02 08/18/18 22:02 08/18/18 22:02 08/18/18 22:02 - Medications Medications: Current Medications Acetaminophen (Tylenol 325mg Tab) 650 mg PO Q4H PRN PRN Reason: Pain, Mild (1-3) Last Admin: 08/18/18 05:39 Dose: 650 mg Hydralazine HCl (Apresoline) 10 mg IVP Q6 PRN PRN Reason: Systolic Blood Pressure Last Admin: 08/18/18 05:39 Dose: 10 mg Piperacillin Sod/Tazobactam Sod (Zosyn 3.375 In Ns 100ml) 100 mls @ 25 mls/hr IVPB Q8 [facility]; Protocol Stop: 08/21/18 22:01 Last Admin: 08/19/18 01:42 Dose: 25 mls/hr Methotrexate (Methotrexate) 10 mg PO QWK [facility] Last Admin: 08/18/18 11:26 Dose: 10 mg Ondansetron HCl (Zofran Inj) 4 mg IVP Q6H PRN PRN Reason: Nausea/Vomiting Prednisone (Prednisone Tab) 5 mg PO DAILY [facility] Last Admin: 08/18/18 09:53 Dose: 5 mg Pregabalin (Lyrica) 50 mg PO HS [facility] Last Admin: 08/18/18 21:49 Dose: 50 mg Verapamil HCl (Calan Sr Tab) 90 mg PO DAILY [facility] Last Admin: 08/18/18 09:53 Dose: 90 mg - Labs Labs: 08/18/18 07:30 08/18/18 07:30 - Constitutional Appears: No Acute Distress - Head Exam Head Exam: ATRAUMATIC, NORMAL INSPECTION, NORMOCEPHALIC - Eye Exam Eye Exam: EOMI, Normal appearance, PERRL Pupil Exam: NORMAL ACCOMODATION, PERRL - ENT Exam ENT Exam: Mucous Membranes Moist, Normal Exam - Neck Exam Neck Exam: Normal Inspection - Respiratory Exam Respiratory Exam: NORMAL BREATHING PATTERN - Cardiovascular Exam Cardiovascular Exam: REGULAR RHYTHM - GI/Abdominal Exam GI & Abdominal Exam: Soft. absent: Distended, Tenderness Additional comments: stoma in place - Rectal Exam Rectal Exam: Fecal Impaction - Extremities Exam Extremities Exam: Full ROM, Normal Capillary Refill, Normal Inspection. absent: Joint Swelling, Pedal Edema - Back Exam Back Exam: NORMAL INSPECTION - Neurological Exam Neurological Exam: Alert, Awake, CN II-XII Intact, Normal Gait, Oriented x3 - Psychiatric Exam Psychiatric exam: Normal Affect, Normal Mood - Skin Skin Exam: Dry, Intact, Normal Color, Warm Assessment and Plan - Assessment and Plan (Free Text) Assessment: 88F w. hx of diverticulitis, s/p [email or web address] 2014 presenting w. abdominal pain w. 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
[2018-08-19 10:01] LABS: BASO # 0.07 K/mm3 (0.0-2.0); BASO % 1.2 % (0.0-3.0); EOS # 0.2 (0.0-0.7); EOS % 3.8 % (1.5-5.0); HEMOGLOBIN 10.4 g/dL (12.0-16.0); LYMPH # 0.8 (1.2-3.4); LYMPH % 13.3 % (22.0-35.0); MEAN CELL VOLUME 95.6 fl (80.0-105.0); MEAN CORPUSCULAR HEMOGLOBIN 30.4 pg (25.0-35.0); MEAN CORPUSCULAR HGB CONC 31.8 g/dl (31.0-37.0); MONO # 0.6 (0.1-0.6); RBC 3.42 10^6/uL (3.5-6.1); RED CELL DISTRIBUTION WIDTH 15.2 % (11.5-14.5); WHITE BLOOD COUNT 5.7 10^3/uL (4.5-11.0)
[2018-08-19 10:14] LABS: ALB/GLOB RATIO 1.2 (1.1-1.8); ALBUMIN 2.9 g/dL (3.0-4.8); CALCIUM 8.8 mg/dL (8.4-10.5)
[2018-08-19] MEDS: Verapamil 180 mg ER Tab PO SCH (10:42)
--- NOTE | 2018-08-19 13:10 | CP.PCM.PN ---
<Lin Toribio - Last Filed: 08/19/18 13:06> Subjective - Date & Time of Evaluation Date of Evaluation: 08/19/18 Time of Evaluation: 08:00 - Subjective Subjective: Pgy3 Medicine progress note for Dr. Ham Patient seen and examined at bedside. As per nursing patient drank warm prune juice the day prior and had large amount of stool from colostomy bag. No stool from rectum evacuated despite multiple enema and suppository. Patient wants to try one more mineral oil enema prior to going to OR for disimpaction. Patient denied other acute complaints fever, chills, headache, dizziness, chest pain, palpitations, SOB, cough, abd pain, nausea, vomiting, dysuria, pain/swelling in her legs bilaterally. Patient is POD#4 IR aspiration of pelvic fluid. Objective - Vital Signs/Intake and Output Vital Signs (last 24 hours): Temp Pulse Resp BP Pulse Ox 98 F 58 L 18 137/80 95 08/19/18 07:00 08/19/18 07:00 08/19/18 07:00 08/19/18 07:00 08/19/18 07:00 - Medications Medications: Current Medications Acetaminophen (Tylenol 325mg Tab) 650 mg PO Q4H PRN PRN Reason: Pain, Mild (1-3) Last Admin: 08/18/18 05:39 Dose: 650 mg Hydralazine HCl (Apresoline) 10 mg IVP Q6 PRN PRN Reason: Systolic Blood Pressure Last Admin: 08/18/18 05:39 Dose: 10 mg Piperacillin Sod/Tazobactam Sod (Zosyn 3.375 In Ns 100ml) 100 mls @ 25 mls/hr IVPB Q8 [facility]; Protocol Stop: 08/21/18 22:01 Last Admin: 08/19/18 10:42 Dose: 25 mls/hr Methotrexate (Methotrexate) 10 mg PO QWK [facility] Last Admin: 08/18/18 11:26 Dose: 10 mg Ondansetron HCl (Zofran Inj) 4 mg IVP Q6H PRN PRN Reason: Nausea/Vomiting Prednisone (Prednisone Tab) 5 mg PO DAILY [facility] Last Admin: 08/19/18 10:42 Dose: 5 mg Pregabalin (Lyrica) 50 mg PO HS [facility] Last Admin: 08/18/18 21:49 Dose: 50 mg Verapamil HCl (Calan Sr Tab) 90 mg PO DAILY [facility] Last Admin: 08/19/18 10:42 Dose: 90 mg - Labs Labs: 08/19/18 09:30 08/19/18 09:30 - Additional Findings Additional findings: - Constitutional Appears: Non-toxic, No Acute Distress - Head Exam Head Exam: ATRAUMATIC, NORMAL INSPECTION, NORMOCEPHALIC - Eye Exam Eye Exam: EOMI, Normal appearance, PERRL. absent: Conjunctival injection, Scleral icterus - ENT Exam ENT Exam: Mucous Membranes Moist - Neck Exam Neck exam: Positive for: Full Rom, Normal Inspection - Respiratory Exam Respiratory Exam: Clear to Auscultation Bilateral, NORMAL BREATHING PATTERN. absent: Accessory Muscle Use, Rales, Rhonchi, Wheezes, Respiratory Distress - Cardiovascular Exam Cardiovascular Exam: REGULAR RHYTHM, +S1, +S2 - GI/Abdominal Exam GI & Abdominal Exam: Soft absent: Tenderness, Firm, Guarding, Rigid Additional comments: stoma pink and patent - Rectal Exam Rectal Exam: Deferred - Extremities Exam Extremities exam: Positive for: normal inspection, pedal pulses present. Negative for: pedal edema Additional comments: arthritic changes noted in b/l hands Assessment and Plan - Assessment and Plan (Free Text) Assessment: 1. Abdominal fluid collection likely secondary to pochitis vs diverticular abscess 2. Leukocytosis- resolved 3. Asymptomatic UTI 4. Retained stool in rectum 5. Ostomy 6. Chronic Rheumatoid Arthritis 7. Chronic HTN 8. Chronic Lower back pain 9. Chronic prendisone use 10. Gait dysfunction Plan: Patient's vitals, blood work, and imaging reviewed in chart. Patient repeat blood cultures x 2 have been prelim negative. Patient's pelvic fluid collection final anaerobes negative; still pending fungal culture. Continued on Zosyn and ID is on board. Patient's urine culture +Klebsiella. Regarding large amount of retained stool in rectum on CT; patient would like to try one more mieral oil enema before proceeding to OR. Surgical team aware and on board. Continue ostomy management and monitoring output. Continue home prednisone and Lyrica at this time. Continue Verapamil for HTN and patient has IV Hydralazine ordered for prn SBP > 160mmHg. Continue tylenol prn for pain and zofran prn for nausea. Will continue to monitor closely. Appreciate reccs of Surgery and ID. Patient has regular diet. Discussed with Dr. Jitendra Toribio PGY3 <Sai Ham - Last Filed: 08/19/18 21:50> Objective - Vital Signs/Intake and Output Vital Signs (last 24 hours): Temp Pulse Resp BP Pulse Ox 99.3 F 51 L 18 182/75 H 97 08/19/18 20:50 08/19/18 20:50 08/19/18 20:50 08/19/18 20:50 08/19/18 20:50 - Medications Medications: Current Medications Acetaminophen (Tylenol 325mg Tab) 650 mg PO Q4H PRN PRN Reason: Pain, Mild (1-3) Last Admin: 08/18/18 05:39 Dose: 650 mg Hydralazine HCl (Apresoline) 10 mg IVP Q6 PRN PRN Reason: Systolic Blood Pressure Last Admin: 08/18/18 05:39 Dose: 10 mg Piperacillin Sod/Tazobactam Sod (Zosyn 3.375 In Ns 100ml) 100 mls @ 25 mls/hr IVPB Q8 [facility]; Protocol Stop: 08/21/18 22:01 Last Admin: 08/19/18 17:41 Dose: 25 mls/hr Methotrexate (Methotrexate) 10 mg PO QWK [facility] Last Admin: 08/18/18 11:26 Dose: 10 mg Ondansetron HCl (Zofran Inj) 4 mg IVP Q6H PRN PRN Reason: Nausea/Vomiting Prednisone (Prednisone Tab) 5 mg PO DAILY [facility] Last Admin: 08/19/18 10:42 Dose: 5 mg Pregabalin (Lyrica) 50 mg PO HS [facility] Last Admin: 08/18/18 21:49 Dose: 50 mg Verapamil HCl (Calan Sr Tab) 90 mg PO DAILY [facility] Last Admin: 08/19/18 10:42 Dose: 90 mg - Labs Labs: 08/19/18 09:30 08/19/18 09:30 Assessment and Plan - Assessment and Plan (Free Text) Plan: Pt seen and examined by me. I have reviewed the note of the medical aide and I agree with it. I have discussed the assessment and plan with the resident. I have reviewed the medications and the last labs.Pt with abd abscess that is being treated with Zosyn. Final cultures are pending. She also has severe constipation and has been given laxatives. She is also on Lyrica for neuropathy. Prednisone for Rheumatic arthritis. Spoke to Surgery.
--- NOTE | 2018-08-19 19:19 | PN ---
DATE: 08/19/2018 SUBJECTIVE: The patient is seen earlier this morning in bed, in no acute distress, nontoxic. PHYSICAL EXAMINATION: VITAL SIGNS: Temperature is 98, blood pressure is 130/80, respiratory rate of 18. HEENT: Unremarkable. NECK: Supple. LUNGS: Have decreased breath sounds. HEART: Normal S1, S2. ABDOMEN: Soft. LABORATORY DATA: Reveals a white count of 5.7, hemoglobin of 10. BUN of 15, creatinine of 1.1. ASSESSMENT AND PLAN: This is an 88-year-old female, abdominal abscess, status post drainage, history of diverticulitis, asymptomatic bacteruria on Zosyn, tolerating the antibiotics well. Zosyn requires renewal, which I will do so. Elliot Antunez MD
[2018-08-20] MEDS: Piperacillin/Tazobact 3.375 gm 100 ML IVPB SCH ×3 (05:33→21:32)
--- NOTE | 2018-08-20 05:41 | CP.PCM.PN ---
<Lin Toribio - Last Filed: 08/20/18 10:49> Subjective - Date & Time of Evaluation Date of Evaluation: 08/20/18 Time of Evaluation: 08:00 - Subjective Subjective: Pgy3 Medicine progress note for Dr. Ham Patient seen and examined at bedside. As per nursing patient had no BM through rectum. Patient has been NPO for OR today for disimpaction and rigid sigmoidoscopy. Patient has no acute complaints of fever, chills, headache, dizziness, chest pain, palpitations, SOB, cough, abd pain, nausea, vomiting, urinary complaints, pain/swelling in her legs b/l. Objective - Vital Signs/Intake and Output Vital Signs (last 24 hours): Temp Pulse Resp BP Pulse Ox 99.3 F 51 L 18 182/75 H 97 08/19/18 20:50 08/19/18 20:50 08/19/18 20:50 08/19/18 20:50 08/19/18 20:50 - Medications Medications: Current Medications Acetaminophen (Tylenol 325mg Tab) 650 mg PO Q4H PRN PRN Reason: Pain, Mild (1-3) Last Admin: 08/18/18 05:39 Dose: 650 mg Hydralazine HCl (Apresoline) 10 mg IVP Q6 PRN PRN Reason: Systolic Blood Pressure Last Admin: 08/18/18 05:39 Dose: 10 mg Piperacillin Sod/Tazobactam Sod (Zosyn 3.375 In Ns 100ml) 100 mls @ 25 mls/hr IVPB Q8 [facility]; Protocol Stop: 08/21/18 22:01 Last Admin: 08/20/18 05:33 Dose: 25 mls/hr Methotrexate (Methotrexate) 10 mg PO QWK [facility] Last Admin: 08/18/18 11:26 Dose: 10 mg Ondansetron HCl (Zofran Inj) 4 mg IVP Q6H PRN PRN Reason: Nausea/Vomiting Prednisone (Prednisone Tab) 5 mg PO DAILY [facility] Last Admin: 08/19/18 10:42 Dose: 5 mg Pregabalin (Lyrica) 50 mg PO HS [facility] Last Admin: 08/19/18 22:56 Dose: 50 mg Verapamil HCl (Calan Sr Tab) 90 mg PO DAILY [facility] Last Admin: 08/19/18 10:42 Dose: 90 mg - Labs Labs: 08/19/18 09:30 08/19/18 09:30 - Additional Findings Additional findings: - Constitutional Appears: Non-toxic, No Acute Distress - Head Exam Head Exam: ATRAUMATIC, NORMAL INSPECTION, NORMOCEPHALIC - Eye Exam Eye Exam: EOMI, Normal appearance, PERRL. absent: Conjunctival injection, Scleral icterus - ENT Exam ENT Exam: Mucous Membranes Moist - Neck Exam Neck exam: Positive for: Full Rom, Normal Inspection - Respiratory Exam Respiratory Exam: Clear to Auscultation Bilateral, NORMAL BREATHING PATTERN. absent: Accessory Muscle Use, Rales, Rhonchi, Wheezes, Respiratory Distress - Cardiovascular Exam Cardiovascular Exam: REGULAR RHYTHM, +S1, +S2 - GI/Abdominal Exam GI & Abdominal Exam: Soft absent: Tenderness, Firm, Guarding, Rigid Additional comments: stoma pink and patent - Rectal Exam Rectal Exam: Deferred - Extremities Exam Extremities exam: Positive for: normal inspection, pedal pulses present. Negative for: pedal edema Additional comments: arthritic changes noted in b/l hands Assessment and Plan - Assessment and Plan (Free Text) Assessment: 1. Abdominal fluid collection likely secondary to pochitis vs diverticular abscess 2. Asymptomatic UTI 3. Retained stool in rectum 4. Ostomy 5. Chronic Rheumatoid Arthritis 6. Chronic HTN 7. Chronic Lower back pain 8. Chronic prendisone use 9. Gait dysfunction Plan: Patient's vitals, blood work, and imaging reviewed in chart. Patient's pelvic fluid collection final anaerobes negative; still pending fungal culture. Pelvic fluid studies reviewed. Continued on Zosyn and ID is on board. Patient's urine culture +Klebsiella. Regarding large amount of retained stool in rectum on CT- patient for OR today for disimpaction and rigid sigmoidoscopy. Continue ostomy management and monitoring output. Continue home prednisone and Lyrica at this time. Continue Verapamil for HTN and patient has IV Hydralazine ordered for prn SBP > 160mmHg. Continue tylenol prn for pain and zofran prn for nausea. Will continue to monitor closely. Patient has been NPO for procedure- will resume diet after OR. Discussed with Dr. Jitendra Toribio PGY3 <Sai Ham - Last Filed: 08/20/18 17:00> Objective - Vital Signs/Intake and Output Vital Signs (last 24 hours): Temp Pulse Resp BP Pulse Ox 97.3 F L 54 L 18 104/48 L 98 08/20/18 14:00 08/20/18 14:00 08/20/18 14:00 08/20/18 16:00 08/20/18 14:00 Intake and Output: 08/20/18 08/20/18 06:59 18:59 Intake Total 0 Balance 0 - Medications Medications: Current Medications Acetaminophen (Tylenol 325mg Tab) 650 mg PO Q4H PRN PRN Reason: Pain, Mild (1-3) Last Admin: 08/20/18 09:42 Dose: 650 mg Hydralazine HCl (Apresoline) 10 mg IVP Q6 PRN PRN Reason: Systolic Blood Pressure Last Admin: 08/20/18 13:54 Dose: 10 mg Piperacillin Sod/Tazobactam Sod (Zosyn 3.375 In Ns 100ml) 100 mls @ 25 mls/hr IVPB Q8 [facility]; Protocol Stop: 08/21/18 22:01 Last Admin: 08/20/18 16:08 Dose: 25 mls/hr Methotrexate (Methotrexate) 10 mg PO QWK [facility] Last Admin: 08/18/18 11:26 Dose: 10 mg Ondansetron HCl (Zofran Inj) 4 mg IVP Q6H PRN PRN Reason: Nausea/Vomiting Prednisone (Prednisone Tab) 5 mg PO DAILY [facility] Last Admin: 08/20/18 11:00 Dose: Not Given Pregabalin (Lyrica) 50 mg PO HS [facility] Last Admin: 08/19/18 22:56 Dose: 50 mg Verapamil HCl (Calan Sr Tab) 90 mg PO DAILY [facility] Last Admin: 08/19/18 10:42 Dose: 90 mg - Labs Labs: 08/20/18 07:40 08/20/18 07:40 PT 12.4 SECONDS (9.4-12.5) 08/20/18 08:20 INR 1.10 08/20/18 08:20 APTT 29.6 Seconds (26.9-38.3) 08/20/18 08:20 Assessment and Plan - Assessment and Plan (Free Text) Plan: Pt seen and examined by me. I have reviewed the note of the medical lead and I agree with it. I have discussed the assessment and plan with the resident. I have reviewed the medications and the last labs. Pt is going to the OR for treatment for her stool impaction. She has not improved with laxative therapy. She is on Zosyn for Abx. She is on Lyrica for her neuropathy. She is on Verpamil for her HTN. She remains on Prednisone for her Rheumatoid arthritis.
--- NOTE | 2018-08-20 07:16 | RAD ---
Date of service: 08/20/2018 HISTORY: preop COMPARISON: Portable chest 03/12/2018. FINDINGS: LUNGS: No active pulmonary disease. PLEURA: No significant pleural effusion identified, no pneumothorax apparent. CARDIOVASCULAR: Calcific atherosclerotic changes are seen related to the thoracic aorta. Mild cardiomegaly unchanged. No pulmonary vascular congestion. OSSEOUS STRUCTURES: No significant abnormalities. VISUALIZED UPPER ABDOMEN: Normal. OTHER FINDINGS: None. IMPRESSION: Stable mild cardiomegaly. No acute pulmonary disease. No pulmonary vascular congestion.
[2018-08-20 07:50] LABS: BASO # 0.07 K/mm3 (0.0-2.0); BASO % 1.3 % (0.0-3.0); EOS # 0.2 (0.0-0.7); EOS % 3.4 % (1.5-5.0); HEMOGLOBIN 10.4 g/dL (12.0-16.0); LYMPH # 0.9 (1.2-3.4); LYMPH % 17.7 % (22.0-35.0); MEAN CELL VOLUME 94.4 fl (80.0-105.0); MEAN CORPUSCULAR HEMOGLOBIN 30.6 pg (25.0-35.0); MEAN CORPUSCULAR HGB CONC 32.4 g/dl (31.0-37.0); MONO # 0.3 (0.1-0.6); MONO % 6.1 % (1.0-6.0); RBC 3.4 10^6/uL (3.5-6.1); RED CELL DISTRIBUTION WIDTH 15.2 % (11.5-14.5); WHITE BLOOD COUNT 5.3 10^3/uL (4.5-11.0)
[2018-08-20 08:29] LABS: ALB/GLOB RATIO 1.1 (1.1-1.8); ALBUMIN 2.9 g/dL (3.0-4.8); ALT/SGPT 34 U/L (7-56); AST/SGOT 33 U/L (14-36); BLOOD UREA NITROGEN 15 mg/dL (7-21); CALCIUM 8.7 mg/dL (8.4-10.5); GFR NON-AFRICAN AMERICAN 53
[2018-08-20 08:42] LABS: INR 1.1; PARTIAL THROMBOPLASTIN TIME 29.6 Seconds (26.9-38.3); PROTHROMBIN TIME 12.4 SECONDS (9.4-12.5)
[2018-08-20] MEDS ORDERED: Propofol 10 mg/ml Inj (20 ML) ONE (12:01)
[2018-08-20] MEDS ORDERED: Etomidate 20 mg/10ml Inj IV ONE (12:02)
--- NOTE | 2018-08-20 12:49 | CP.PCM.PN ---
Subjective - Date & Time of Evaluation Date of Evaluation: 08/20/18 Time of Evaluation: 10:10 - Subjective Subjective: Has some abdominal discomfort, no fevers, for fecal disimpaction today. Objective - Vital Signs/Intake and Output Vital Signs (last 24 hours): Temp Pulse Resp BP Pulse Ox 98.1 F 50 L 18 183/71 H 98 08/20/18 11:55 08/20/18 11:55 08/20/18 11:55 08/20/18 11:55 08/20/18 11:55 Intake and Output: 08/20/18 08/20/18 06:59 18:59 Intake Total 0 Balance 0 - Medications Medications: Current Medications Acetaminophen (Tylenol 325mg Tab) 650 mg PO Q4H PRN PRN Reason: Pain, Mild (1-3) Last Admin: 08/20/18 09:42 Dose: 650 mg Hydralazine HCl (Apresoline) 10 mg IVP Q6 PRN PRN Reason: Systolic Blood Pressure Last Admin: 08/18/18 05:39 Dose: 10 mg Piperacillin Sod/Tazobactam Sod (Zosyn 3.375 In Ns 100ml) 100 mls @ 25 mls/hr IVPB Q8 [facility]; Protocol Stop: 08/21/18 22:01 Last Admin: 08/20/18 05:33 Dose: 25 mls/hr Methotrexate (Methotrexate) 10 mg PO QWK [facility] Last Admin: 08/18/18 11:26 Dose: 10 mg Ondansetron HCl (Zofran Inj) 4 mg IVP Q6H PRN PRN Reason: Nausea/Vomiting Prednisone (Prednisone Tab) 5 mg PO DAILY [facility] Last Admin: 08/19/18 10:42 Dose: 5 mg Pregabalin (Lyrica) 50 mg PO HS [facility] Last Admin: 08/19/18 22:56 Dose: 50 mg Verapamil HCl (Calan Sr Tab) 90 mg PO DAILY [facility] Last Admin: 08/19/18 10:42 Dose: 90 mg - Labs Labs: 08/20/18 07:40 08/20/18 07:40 PT 12.4 SECONDS (9.4-12.5) 08/20/18 08:20 INR 1.10 08/20/18 08:20 APTT 29.6 Seconds (26.9-38.3) 08/20/18 08:20 - Constitutional Appears: Chronically Ill - Head Exam Head Exam: NORMAL INSPECTION - Respiratory Exam Respiratory Exam: Decreased Breath Sounds - Cardiovascular Exam Cardiovascular Exam: +S1, +S2 - GI/Abdominal Exam GI & Abdominal Exam: Soft. absent: Tenderness Assessment and Plan - Assessment and Plan (Free Text) Plan: Assessment Abdominal fluid collection probably intra-abdominal abscess S/P IR-guided drainage asymptomatic bacteriuria HTN history of diverticulitis rheumatoid arthritis Plan continue Zosyn fluid cultures have been negative patient is for fecal disimpaction and will follow up results will monitor clinically
--- NOTE | 2018-08-20 12:50 | PCM.SURG1 ---
Surgeon's Initial Post Op Note - Surgeon's Notes Surgeon: Celso Anchor Tacker: Jamie PGY4 Type of Anesthesia: IV Sedation Pre-Operative Diagnosis: Fecal impaction Operative Findings: Tennis ball sized impacted stool Post-Operative Diagnosis: same Operation Performed: TJ carlisle fecal disimpaction Specimen/Specimens Removed: none Estimated Blood Loss: EBL {In ML}: 0 Blood Products Given: N/A Drains Used: No Drains Post-Op Condition: Good Date of Surgery/Procedure: 08/20/18 Time of Surgery/Procedure: 12:50
[2018-08-20] MEDS ORDERED: Sodium Chloride 0.9% 1,000 ML IV SCH (13:00)
[2018-08-21 04:04] VITALS: O2SAT 95
[2018-08-21] MEDS: Piperacillin/Tazobact 3.375 gm 100 ML IVPB SCH (06:24)
[2018-08-21 07:27] LABS: BASO # 0.05 K/mm3 (0.0-2.0); BASO % 0.7 % (0.0-3.0); EOS # 0.2 (0.0-0.7); EOS % 2.9 % (1.5-5.0); HEMOGLOBIN 11.1 g/dL (12.0-16.0); LYMPH # 1.1 (1.2-3.4); LYMPH % 16.1 % (22.0-35.0); MEAN CELL VOLUME 94.9 fl (80.0-105.0); MEAN CORPUSCULAR HGB CONC 31.6 g/dl (31.0-37.0); MEAN PLATELET VOLUME 9.1 fl (7.0-11.0); MONO # 0.1 (0.1-0.6); MONO % 1.3 % (1.0-6.0); RBC 3.7 10^6/uL (3.5-6.1); RED CELL DISTRIBUTION WIDTH 15.3 % (11.5-14.5); WHITE BLOOD COUNT 6.8 10^3/uL (4.5-11.0)
[2018-08-21 07:43] LABS: ALB/GLOB RATIO 1.1 (1.1-1.8); CALCIUM 8.8 mg/dL (8.4-10.5)
--- NOTE | 2018-08-21 09:07 | CP.PCM.DIS ---
<Lin Toribio - Last Filed: 08/21/18 11:30> Provider - Provider Date of Admission: 08/13/18 17:13 Attending physician: Sai Ham MD Primary care physician: Nehemias Cai MD Consults: 08/13/18 17:19 General Surgery Consult Routine Comment: Consulting Provider: Handy Houston Consulting Physician: Handy Houston Reason for Consult: free fluid in pelvis - s/p colostomy 08/13/18 22:22 Social Work Referral Routine Comment: NEEDS ASSISTANCE AT HOME IF NEEDED Physician Instructions: Reason For Exam: EVALUATIO 08/14/18 18:09 Infectious Disease Consult Routine Comment: Consulting Provider: Stiven Dickens Consulting Physician: Stiven Dickens Reason for Consult: abd pain, pelvic fluid, small lucencies concern for divertic abscess 08/18/18 11:12 TCU [Evaluation for TRCU] Routine Comment: Physician Instructions: Reason For Exam: TCU eval Time Spent in preparation of Discharge (in minutes): 45 Hospital Course - Lab Results Lab Results: Micro Results 08/16/18 01:45 Blood-Venous Blood Culture - Final NO GROWTH AFTER 5 DAYS 08/16/18 01:45 Blood-Venous Gram Stain - Final TEST NOT PERFORMED 08/16/18 02:05 Blood-Venous Blood Culture - Final NO GROWTH AFTER 5 DAYS 08/16/18 02:05 Blood-Venous Gram Stain - Final TEST NOT PERFORMED 08/15/18 18:01 Other: Please Indicate Anaerobic Culture - Final NO ANAEROBES ISOLATED. 08/15/18 18:01 Other: Please Indicate Body Fluid Culture - Final No growth. 08/13/18 17:10 Blood Blood Culture - Final NO GROWTH AFTER 5 DAYS 08/13/18 17:10 Blood Gram Stain - Final TEST NOT PERFORMED 08/13/18 17:25 Blood Blood Culture - Final NO GROWTH AFTER 5 DAYS 08/13/18 17:25 Blood Gram Stain - Final TEST NOT PERFORMED 08/13/18 14:00 Urine Random Urine Culture - Final Klebsiella Oxytoca Most Recent Lab Values WBC 6.8 10^3/uL (4.5-11.0) D 08/21/18 07:00 RBC 3.70 10^6/uL (3.5-6.1) 08/21/18 07:00 Hgb 11.1 g/dL (12.0-16.0) L 08/21/18 07:00 Hct 35.1 % (36.0-48.0) L 08/21/18 07:00 MCV 94.9 fl (80.0-105.0) 08/21/18 07:00 MCH 30.0 pg (25.0-35.0) 08/21/18 07:00 MCHC 31.6 g/dl (31.0-37.0) 08/21/18 07:00 RDW 15.3 % (11.5-14.5) H 08/21/18 07:00 Plt Count 464 10^3/uL (120.0-450.0) H 08/21/18 07:00 MPV 9.1 fl (7.0-11.0) 08/21/18 07:00 Gran % 78.8 % (50.0-68.0) H 08/17/18 07:40 Neut % (Auto) 79.0 % (50.0-68.0) H 08/21/18 07:00 Lymph % (Auto) 16.1 % (22.0-35.0) L 08/21/18 07:00 [place] % (Auto) 1.3 % (1.0-6.0) 08/21/18 07:00 Eos % (Auto) 2.9 % (1.5-5.0) 08/21/18 07:00 Baso % (Auto) 0.7 % (0.0-3.0) 08/21/18 07:00 Gran # 7.17 (1.4-6.5) H 08/17/18 07:40 Lymph # (Auto) 1.1 (1.2-3.4) L 08/21/18 07:00 [place] # (Auto) 0.1 (0.1-0.6) 08/21/18 07:00 Eos # (Auto) 0.2 (0.0-0.7) 08/21/18 07:00 Baso # (Auto) 0.05 K/mm3 (0.0-2.0) 08/21/18 07:00 Absolute Neuts (auto) 5.36 (1.4-6.5) 08/21/18 07:00 Neutrophils % (Manual) 96 % (50.0-70.0) H 08/13/18 13:50 Lymphocytes % (Manual) 2 % (22.0-35.0) L 08/13/18 13:50 Monocytes % (Manual) 2 % (1.0-6.0) 08/13/18 13:50 Platelet Evaluation Normal (NORMAL) 08/13/18 13:50 PT 12.4 SECONDS (9.4-12.5) 08/20/18 08:20 INR 1.10 08/20/18 08:20 APTT 29.6 Seconds (26.9-38.3) 08/20/18 08:20 Sodium 140 mmol/L (132-148) 08/21/18 07:00 Potassium 3.8 mmol/L (3.6-5.0) 08/21/18 07:00 Chloride 112 mmol/L (98-107) H 08/21/18 07:00 Carbon Dioxide 23 mmol/L (21-33) 08/21/18 07:00 Anion Gap 8 (10-20) L 08/21/18 07:00 BUN 15 mg/dL (7-21) 08/21/18 07:00 Creatinine 1.2 mg/dl (0.7-1.2) 08/21/18 07:00 Est GFR ( Amer) 52 08/21/18 07:00 Est GFR (Non-Af Amer) 43 08/21/18 07:00 POC Glucose (mg/dL) 77 mg/dL (65-110) 08/14/18 06:37 Random Glucose 89 mg/dL (70-110) 08/21/18 07:00 Calcium 8.8 mg/dL (8.4-10.5) 08/21/18 07:00 Phosphorus 3.2 mg/dL (2.5-4.5) 08/19/18 09:30 Magnesium 2.3 mg/dL (1.7-2.2) H 08/19/18 09:30 Total Bilirubin 0.4 mg/dL (0.2-1.3) 08/21/18 07:00 AST 28 U/L (14-36) 08/21/18 07:00 ALT 34 U/L (7-56) 08/21/18 07:00 Alkaline Phosphatase 57 U/L (38-126) 08/21/18 07:00 Total Protein 5.6 g/dL (5.8-8.3) L 08/21/18 07:00 Albumin 3.0 g/dL (3.0-4.8) 08/21/18 07:00 Globulin 2.6 gm/dL 08/21/18 07:00 Albumin/Globulin Ratio 1.1 (1.1-1.8) 08/21/18 07:00 Lipase 63 U/L (23-300) 08/13/18 13:50 Urine Color Yellow (YELLOW) 08/13/18 14:00 Urine Appearance Clear (CLEAR) 08/13/18 14:00 Urine pH 7.5 (4.7-8.0) 08/13/18 14:00 Ur Specific [place] 1.020 (1.005-1.035) 08/13/18 14:00 Urine Protein 30 mg/dL (<30 mg/dL) H 08/13/18 14:00 Urine Glucose (UA) Negative mg/dL (NEGATIVE) 08/13/18 14:00 Urine Ketones Trace mg/dL (NEGATIVE) H 08/13/18 14:00 Urine Blood Negative (NEGATIVE) 08/13/18 14:00 Urine Nitrate Negative (NEGATIVE) 08/13/18 14:00 Urine Bilirubin Negative (NEGATIVE) 08/13/18 14:00 Urine Urobilinogen 0.2 E.U./dL (<1 E.U./dL) 08/13/18 14:00 Ur Leukocyte Esterase Moderate Marion/uL (NEGATIVE) H 08/13/18 14:00 Urine RBC 1 - 3 /hpf (0-2) H 08/13/18 14:00 Urine WBC 25 - 30 /hpf (0-6) H 08/13/18 14:00 Ur Epithelial Cells 3 - 4 /hpf (0-5) 08/13/18 14:00 Amorphous Sediment Few /hpf (NONE) 08/13/18 14:00 Urine Bacteria Large /hpf (NONE) 08/13/18 14:00 Urine Other Uyeast /hpf 08/13/18 14:00 Fluid Source Peritoneal 08/15/18 18:03 Fluid Appearance Sl cloudy (CLEAR) 08/15/18 18:03 Fluid WBC 2993.0 /uL (0.0-300.0) H 08/15/18 18:03 Fluid RBC 1000.0 /uL (0.0-0.0) H 08/15/18 18:03 Fluid Tot Cell Count 100 (0-0) H 08/15/18 18:03 Fluid Mononuclear Cell 6.4 % (0-0) H 08/15/18 18:03 Fl Polymorphonucl Cell 93.6 % (0-0) H 08/15/18 18:03 Fluid Comment No 08/15/18 18:03 - Hospital Course Hospital Course: Upon Admission 88 year old female PMHx HTN, RA, LBP, diverticulitis with colostomy s/p perf diverticulum in 2014 presents to [facility] [place] with lower abdominal pain. Patient reported the pain has been going on for weeks however worsened prior to admission. She located the pain in her lower abdomen with no radiation. Patient described the pain as 0/10 at rest but 8/10 at its worst and exacerbated by any movement. She denied any associated of the pain with food and denied any nausea/vomiting. Patient has an ostomy bag in place which is emptied once/day. She denied any changes in the ostomy contents, denied any blood/dark stool, diarrhea, or having to change the bag more/fewer times than baseline. On ROS she denied acute complaints of fever, chills, headache, dizziness, chest pain, palpitations, SOB, cough, dysuria, hematuria, pain/swelling in her legs bilaterally. Hospital Course Patient admitted to med/surg. CT Abd/pelvis with IV contrast revealed moderate amount free fluid in pelvis with no air within collection to suggest abscess. Patient was started on Zosyn and ID was consulted. Surgery was consulted who recommended repeat CT Abd/pelvis with PO and IV contrast that showed mild increase in volume in peritoneal fluid collection in pelvis adjacent to Jacek pouch with diverticular changes associated at the upper portion. Patient was taken for CT guided aspiration by IR who aspirated 70cc serous fluid. Fluid studies were done and followed up. UA revealed moderate leuk esterase and Urine Cx showed +Klebsiella. Blood culture prelim negative x 2. Patient did spike a temp during her hospital course which resolved and repeat cultures were unremakrable. Patient was continued on home medications for chronic conditions. Patient had a large amount of retained stool in rectum on CT. Patient had multiple enemas and suppositories and had a bedside manual disimpaction to no avail. She was thus taken to the OR for disimpaction and rigid sigmoidoscopy and a Tennis ball sized impacted stool was retrieved. Patient clinically improved and on day of discharge was deemed medically stable for discharge. PT recommended TCU vs [facility] however patient and daughter wanted patient to be discharged home. Discharge Instructions "You are being discharged from [facility]. Please follow up with your Primary Care Doctor within 7 days. Please follow up with your [employer] Grinder Tender within 2 weeks. Please resume all home medications as prescribed by your primary care doctor. If symptoms return please visit your nearest Emergency Room." Patient verbalized understanding and agreement with discharge instructions and plan. Please note this is a discharge summary. For full hospital course please refer to EMR. Discharge Exam - Head Exam Head Exam: NORMAL INSPECTION - Additional Findings Additional findings: - Constitutional Appears: Non-toxic, No Acute Distress - Head Exam Head Exam: ATRAUMATIC, NORMAL INSPECTION, NORMOCEPHALIC - Eye Exam Eye Exam: EOMI, Normal appearance, PERRL. absent: Conjunctival injection, Scleral icterus - ENT Exam ENT Exam: Mucous Membranes Moist - Neck Exam Neck exam: Positive for: Full Rom, Normal Inspection - Respiratory Exam Respiratory Exam: Clear to Auscultation Bilateral, NORMAL BREATHING PATTERN. absent: Accessory Muscle Use, Rales, Rhonchi, Wheezes, Respiratory Distress - Cardiovascular Exam Cardiovascular Exam: REGULAR RHYTHM, +S1, +S2 - GI/Abdominal Exam GI & Abdominal Exam: Soft absent: Tenderness, Firm, Guarding, Rigid Additional comments: stoma pink and patent - Rectal Exam Rectal Exam: Deferred - Extremities Exam Extremities exam: Positive for: normal inspection, pedal pulses present. Negative for: pedal edema Additional comments: arthritic changes noted in b/l hands Discharge Plan - Follow Up Plan Condition: FAIR Disposition: HOME/ ROUTINE Instructions: High Blood Pressure in Adults, Heart Healthy Diet, Pneumococcal Conjugate Vaccine (13-Valent), Influenza Virus Vaccine (Inactivated), Acute Abdominal Pain (DC), Acute Abdominal Pain (GEN) Additional Instructions: You are being discharged from [facility]. Please follow up with your Primary Care Doctor within 7 days. Please follow up with your [employer] Grinder Tender within 2 weeks. Please resume all home medications as prescribed by your primary care doctor. If symptoms return please visit your nearest Emergency Room. Referrals: Nehemias Cai MD [Primary Care Provider] - <Sai Ham - Last Filed: 08/21/18 20:01> Provider - Provider Date of Admission: 08/13/18 17:13 Attending physician: Sai Ham MD Primary care physician: Nehemias Cai MD Consults: 08/13/18 17:19 General Surgery Consult Routine Comment: Consulting Provider: Handy Houston Consulting Physician: Handy Houston Reason for Consult: free fluid in pelvis - s/p colostomy 08/13/18 22:22 Social Work Referral Routine Comment: NEEDS ASSISTANCE AT HOME IF NEEDED Physician Instructions: Reason For Exam: EVALUATIO 08/14/18 18:09 Infectious Disease Consult Routine Comment: Consulting Provider: Stiven Dickens Consulting Physician: Stiven Dickens Reason for Consult: abd pain, pelvic fluid, small lucencies concern for divertic abscess 08/18/18 11:12 TCU [Evaluation for TRCU] Routine Comment: Physician Instructions: Reason For Exam: TCU [facility] Hospital Course - Lab Results Lab Results: Micro Results 08/15/18 18:01 Other: Please Indicate Anaerobic Culture - Final NO ANAEROBES ISOLATED. 08/15/18 18:01 Other: Please Indicate Body Fluid Culture - Final No growth. 08/15/18 18:01 Other: Please Indicate Fungal Culture - Preliminary 08/16/18 01:45 Blood-Venous Blood Culture - Final NO GROWTH AFTER 5 DAYS 08/16/18 01:45 Blood-Venous Gram Stain - Final TEST NOT PERFORMED 08/16/18 02:05 Blood-Venous Blood Culture - Final NO GROWTH AFTER 5 DAYS 08/16/18 02:05 Blood-Venous Gram Stain - Final TEST NOT PERFORMED 08/13/18 17:10 Blood Blood Culture - Final NO GROWTH AFTER 5 DAYS 08/13/18 17:10 Blood Gram Stain - Final TEST NOT PERFORMED 08/13/18 17:25 Blood Blood Culture - Final NO GROWTH AFTER 5 DAYS 08/13/18 17:25 Blood Gram Stain - Final TEST NOT PERFORMED 08/13/18 14:00 Urine Random Urine Culture - Final Klebsiella Oxytoca Most Recent Lab Values WBC 6.8 10^3/uL (4.5-11.0) D 08/21/18 07:00 RBC 3.70 10^6/uL (3.5-6.1) 08/21/18 07:00 Hgb 11.1 g/dL (12.0-16.0) L 08/21/18 07:00 Hct 35.1 % (36.0-48.0) L 08/21/18 07:00 MCV 94.9 fl (80.0-105.0) 08/21/18 07:00 MCH 30.0 pg (25.0-35.0) 08/21/18 07:00 MCHC 31.6 g/dl (31.0-37.0) 08/21/18 07:00 RDW 15.3 % (11.5-14.5) H 08/21/18 07:00 Plt Count 464 10^3/uL (120.0-450.0) H 08/21/18 07:00 MPV 9.1 fl (7.0-11.0) 08/21/18 07:00 Gran % 78.8 % (50.0-68.0) H 08/17/18 07:40 Neut % (Auto) 79.0 % (50.0-68.0) H 08/21/18 07:00 Lymph % (Auto) 16.1 % (22.0-35.0) L 08/21/18 07:00 [place] % (Auto) 1.3 % (1.0-6.0) 08/21/18 07:00 Eos % (Auto) 2.9 % (1.5-5.0) 08/21/18 07:00 Baso % (Auto) 0.7 % (0.0-3.0) 08/21/18 07:00 Gran # 7.17 (1.4-6.5) H 08/17/18 07:40 Lymph # (Auto) 1.1 (1.2-3.4) L 08/21/18 07:00 [place] # (Auto) 0.1 (0.1-0.6) 08/21/18 07:00 Eos # (Auto) 0.2 (0.0-0.7) 08/21/18 07:00 Baso # (Auto) 0.05 K/mm3 (0.0-2.0) 08/21/18 07:00 Absolute Neuts (auto) 5.36 (1.4-6.5) 08/21/18 07:00 Neutrophils % (Manual) 96 % (50.0-70.0) H 08/13/18 13:50 Lymphocytes % (Manual) 2 % (22.0-35.0) L 08/13/18 13:50 Monocytes % (Manual) 2 % (1.0-6.0) 08/13/18 13:50 Platelet Evaluation Normal (NORMAL) 08/13/18 13:50 PT 12.4 SECONDS (9.4-12.5) 08/20/18 08:20 INR 1.10 08/20/18 08:20 APTT 29.6 Seconds (26.9-38.3) 08/20/18 08:20 Sodium 140 mmol/L (132-148) 08/21/18 07:00 Potassium 3.8 mmol/L (3.6-5.0) 08/21/18 07:00 Chloride 112 mmol/L (98-107) H 08/21/18 07:00 Carbon Dioxide 23 mmol/L (21-33) 08/21/18 07:00 Anion Gap 8 (10-20) L 08/21/18 07:00 BUN 15 mg/dL (7-21) 08/21/18 07:00 Creatinine 1.2 mg/dl (0.7-1.2) 08/21/18 07:00 Est GFR ( Amer) 52 08/21/18 07:00 Est GFR (Non-Af Amer) 43 08/21/18 07:00 POC Glucose (mg/dL) 77 mg/dL (65-110) 08/14/18 06:37 Random Glucose 89 mg/dL (70-110) 08/21/18 07:00 Calcium 8.8 mg/dL (8.4-10.5) 08/21/18 07:00 Phosphorus 3.2 mg/dL (2.5-4.5) 08/19/18 09:30 Magnesium 2.3 mg/dL (1.7-2.2) H 08/19/18 09:30 Total Bilirubin 0.4 mg/dL (0.2-1.3) 08/21/18 07:00 AST 28 U/L (14-36) 08/21/18 07:00 ALT 34 U/L (7-56) 08/21/18 07:00 Alkaline Phosphatase 57 U/L (38-126) 08/21/18 07:00 Total Protein 5.6 g/dL (5.8-8.3) L 08/21/18 07:00 Albumin 3.0 g/dL (3.0-4.8) 08/21/18 07:00 Globulin 2.6 gm/dL 08/21/18 07:00 Albumin/Globulin Ratio 1.1 (1.1-1.8) 08/21/18 07:00 Lipase 63 U/L (23-300) 08/13/18 13:50 Urine Color Yellow (YELLOW) 08/13/18 14:00 Urine Appearance Clear (CLEAR) 08/13/18 14:00 Urine pH 7.5 (4.7-8.0) 08/13/18 14:00 Ur Specific [place] 1.020 (1.005-1.035) 08/13/18 14:00 Urine Protein 30 mg/dL (<30 mg/dL) H 08/13/18 14:00 Urine Glucose (UA) Negative mg/dL (NEGATIVE) 08/13/18 14:00 Urine Ketones Trace mg/dL (NEGATIVE) H 08/13/18 14:00 Urine Blood Negative (NEGATIVE) 08/13/18 14:00 Urine Nitrate Negative (NEGATIVE) 08/13/18 14:00 Urine Bilirubin Negative (NEGATIVE) 08/13/18 14:00 Urine Urobilinogen 0.2 E.U./dL (<1 E.U./dL) 08/13/18 14:00 Ur Leukocyte Esterase Moderate Marion/uL (NEGATIVE) H 08/13/18 14:00 Urine RBC 1 - 3 /hpf (0-2) H 08/13/18 14:00 Urine WBC 25 - 30 /hpf (0-6) H 08/13/18 14:00 Ur Epithelial Cells 3 - 4 /hpf (0-5) 08/13/18 14:00 Amorphous Sediment Few /hpf (NONE) 08/13/18 14:00 Urine Bacteria Large /hpf (NONE) 08/13/18 14:00 Urine Other Uyeast /hpf 08/13/18 14:00 Fluid Source Peritoneal 08/15/18 18:03 Fluid Appearance Sl cloudy (CLEAR) 08/15/18 18:03 Fluid WBC 2993.0 /uL (0.0-300.0) H 08/15/18 18:03 Fluid RBC 1000.0 /uL (0.0-0.0) H 08/15/18 18:03 Fluid Tot Cell Count 100 (0-0) H 08/15/18 18:03 Fluid Mononuclear Cell 6.4 % (0-0) H 08/15/18 18:03 Fl Polymorphonucl Cell 93.6 % (0-0) H 08/15/18 18:03 Fluid Comment No 08/15/18 18:03 - Hospital Course Hospital Course: Pt seen and examined by me. I have reviewed the note of the medical customer service representative and I agree with it. I have discussed the assessment and plan with the resident. I have reviewed the medications and the last labs.Pt's constipation has improved after surgery. Abd pain is resolved. She will continue with prednisone for Rhumatoid arthritis. Back pain is controlled. She will be discharged home. She does not want to go to [facility]. F/U PMD.
[2018-08-21 09:25] VITALS: PULSE 71; RESP 18; TEMP 97.7
--- NOTE | 2018-08-21 09:49 | CP.PCM.PN ---
Subjective - Date & Time of Evaluation Date of Evaluation: 08/21/18 Time of Evaluation: 09:43 - Subjective Subjective: Resident Progress Note for Surgery: Dr. Houston Patient examined at bedside. Patient is POD#1 s/p EUA with fecal disimpaction. Patient is resting comfortably in bed, offers no complaints. Objective - Vital Signs/Intake and Output Vital Signs (last 24 hours): Temp Pulse Resp BP Pulse Ox 97.7 F 71 18 153/81 H 95 08/21/18 06:00 08/21/18 06:00 08/21/18 06:00 08/21/18 06:00 08/21/18 06:00 Intake and Output: 08/21/18 08/21/18 06:59 18:59 Intake Total 320 Balance 320 - Medications Medications: Current Medications Acetaminophen (Tylenol 325mg Tab) 650 mg PO Q4H PRN PRN Reason: Pain, Mild (1-3) Last Admin: 08/21/18 07:31 Dose: 650 mg Hydralazine HCl (Apresoline) 10 mg IVP Q6 PRN PRN Reason: Systolic Blood Pressure Last Admin: 08/20/18 13:54 Dose: 10 mg Piperacillin Sod/Tazobactam Sod (Zosyn 3.375 In Ns 100ml) 100 mls @ 25 mls/hr IVPB Q8 OG; Protocol Stop: 08/21/18 22:01 Last Admin: 08/21/18 06:24 Dose: 25 mls/hr Methotrexate (Methotrexate) 10 mg PO QWK [facility] Last Admin: 08/18/18 11:26 Dose: 10 mg Ondansetron HCl (Zofran Inj) 4 mg IVP Q6H PRN PRN Reason: Nausea/Vomiting Prednisone (Prednisone Tab) 5 mg PO DAILY [facility] Last Admin: 08/20/18 11:00 Dose: Not Given Pregabalin (Lyrica) 50 mg PO HS [facility] Last Admin: 08/20/18 21:32 Dose: 50 mg Verapamil HCl (Calan Sr Tab) 90 mg PO DAILY [facility] Last Admin: 08/19/18 10:42 Dose: 90 mg - Labs Labs: 08/21/18 07:00 08/21/18 07:00 PT 12.4 SECONDS (9.4-12.5) 08/20/18 08:20 INR 1.10 08/20/18 08:20 APTT 29.6 Seconds (26.9-38.3) 08/20/18 08:20 - Additional Findings Additional findings: - Constitutional Appears: No Acute Distress - Head Exam Head Exam: ATRAUMATIC, NORMOCEPHALIC - Eye Exam Eye Exam: EOMI, Normal appearance - ENT Exam ENT Exam: Mucous Membranes Moist - Respiratory Exam Respiratory Exam: NORMAL BREATHING PATTERN. absent: Respiratory Distress, Accessory Muscle Use - Cardiovascular Exam Cardiovascular Exam: REGULAR RHYTHM - GI/Abdominal Exam GI & Abdominal Exam: Soft. absent: Distended, Tenderness Additional comments: stoma in place - Extremities Exam Extremities Exam: Full ROM. absent: Joint Swelling, Pedal Edema - Neurological Exam Neurological Exam: Alert, Awake, Oriented x3 - Psychiatric Exam Psychiatric exam: Normal Affect, Normal Mood - Skin Skin Exam: Dry, Intact, Normal Color, Warm Assessment and Plan - Assessment and Plan (Free Text) Assessment: Patient is an 88 year old female with past medical history diverticulitis s/p Jacek's (2014) who presented with abdominal pain, now s/p IR drainage of pelvic fluid collection and EUA with fecal disimpaction. Plan: - CT abd/pelvis showed retained stool in rectum - no bowel movement with multiple mineral oil enemas - s/p EUA with fecal disimpaction - afebrile, no leukocytosis - further management per primary - further recommendations per Dr. Celso Samayoa PGY-1
[2018-08-21] MEDS: Verapamil 180 mg ER Tab PO SCH (12:28)
[2018-08-21 12:29] VITALS: BP 130/74
--- NOTE | 2018-08-21 14:03 | CP.PCM.PN ---
<Beau Taylor - Last Filed: 08/21/18 14:01> Subjective - Date & Time of Evaluation Date of Evaluation: 08/21/18 Time of Evaluation: 09:00 - Subjective Subjective: ID Progress Note Patient seen and examined. Patient with no complaints. No abdominal pain. No fevers overnight. Objective - Vital Signs/Intake and Output Vital Signs (last 24 hours): Temp Pulse Resp BP Pulse Ox 97.7 F 71 18 130/74 95 08/21/18 06:00 08/21/18 06:00 08/21/18 06:00 08/21/18 12:28 08/21/18 06:00 Intake and Output: 08/21/18 08/21/18 06:59 18:59 Intake Total 320 Balance 320 - Labs Labs: 08/21/18 07:00 08/21/18 07:00 PT 12.4 SECONDS (9.4-12.5) 08/20/18 08:20 INR 1.10 08/20/18 08:20 APTT 29.6 Seconds (26.9-38.3) 08/20/18 08:20 - Constitutional Appears: Non-toxic, No Acute Distress - Head Exam Head Exam: ATRAUMATIC, NORMAL INSPECTION, NORMOCEPHALIC - ENT Exam ENT Exam: Mucous Membranes Moist - Respiratory Exam Respiratory Exam: Clear to Ausculation Bilateral, NORMAL BREATHING PATTERN - Cardiovascular Exam Cardiovascular Exam: RRR, +S1, +S2 - GI/Abdominal Exam GI & Abdominal Exam: Soft, Normal Bowel Sounds. absent: Tenderness Additional comments: Colostomy - Extremities Exam Extremities Exam: Normal Inspection. absent: Pedal Edema - Neurological Exam Neurological Exam: Alert, Awake, Oriented x3 - Psychiatric Exam Psychiatric exam: Normal Affect, Normal Mood - Skin Skin Exam: Dry, Intact, Warm Assessment and Plan - Assessment and Plan (Free Text) Plan: Abdominal fluid collection probably intra-abdominal abscess S/P IR-guided drainage asymptomatic bacteriuria Hx of HTN Hx of diverticulitis Hx of rheumatoid arthritis Plan Stop Zosyn Fluid cultures negative at this time Patient s/p fecal disimpaction Continue to monitor off of antibiotics Brandon, PGY-3 <Stiven Dickens - Last Filed: 08/21/18 14:14> Objective - Vital Signs/Intake and Output Vital Signs (last 24 hours): Temp Pulse Resp BP Pulse Ox 97.7 F 71 18 130/74 95 08/21/18 06:00 08/21/18 06:00 08/21/18 06:00 08/21/18 12:28 08/21/18 06:00 Intake and Output: 08/21/18 08/21/18 06:59 18:59 Intake Total 320 Balance 320 - Labs Labs: 08/21/18 07:00 08/21/18 07:00 PT 12.4 SECONDS (9.4-12.5) 08/20/18 08:20 INR 1.10 08/20/18 08:20 APTT 29.6 Seconds (26.9-38.3) 08/20/18 08:20 Assessment and Plan - Assessment and Plan (Free Text) Plan: Infectious diseases Attending Physician Attestation Patient seen and examined, discussed with medical staff credentialing coordinator. I have reviewed the patient's history of present illness, past medical, social, personal and family histories, pertinent physical exam findings, course so far in this hospital admission, pertinent laboratory and imaging results. I agree with the above find ings, assessment and plan. In addition, completed course of Zosyn for probable intra-abdominal abscess S/P IR-guided drainage.
--- NOTE | 2018-08-22 07:47 | OP ---
PROCEDURE DATE: 08/20/2018 PREOPERATIVE DIAGNOSIS: Fecal impaction. POSTOPERATIVE DIAGNOSIS: Fecal impaction. PROCEDURE: Exam under anesthesia with fecal disimpaction. SURGEON: Handy Houston MD BEVERAGE SERVER: Dillon Ayala DO, PGY-4 ANESTHESIOLOGIST: ANESTHESIA: IV sedation. BLOOD LOSS: None. SPECIMENS: None. INDICATIONS FOR THE PROCEDURE: This is an 88-year-old female with a history of diverticulitis and a Jacek's procedure done in 2014. The patient presented to the ER with abdominal pain and a CAT scan was done showing a small amount of fluid in the pelvis and a large amount of stool retained in the rectum. The patient had been given multiple suppositories and mineral oil enema the day prior, was unable to have bowel movement, still had persistent abdominal pain. Because of this, the patient likely to go to the OR for exam under anesthesia with manual disimpaction. After discussing risks and benefits with the patient, informed consent was obtained. DESCRIPTION OF PROCEDURE: The patient was taken to the operating room and placed on the operating table in the lithotomy position. The patient was placed under IV sedation and all appropriate monitoring devices were in place. The patient was then prepped and draped in the usual sterile manner, and a time-out was conducted verifying correct patient, procedure, position, and site. At this point, the anus was then dilated and we proceed with fecal disimpaction. We were able to remove about a tennis ball size portion of impacted stool, there was additional stool palpated digitally on exam; however, we are unable to reach this. We attempted a rectal washout with a liter of normal saline. A small amount of stool was able to be removed during this; however, there is still a large stool burden that was inaccessible. At this point, it was decided to end the procedure. The patient tolerated the procedure well and was transported to PACU in stable condition. Dillon Ayala DO Handy Houston MD
== END 2018-08-21 13:54 | disposition home or self-care (01) | DRG 357 ==
LOC: ED 12:46 → ERH 17:13 → 5RSO 19:20
PROVIDERS: ADMIT Internal Medicine Nephrology; ATTEND Internal Medicine Nephrology
PROC: 0W9J3ZX Drainage of Pelvic Cavity, Percutaneous Approach, Diagnostic (ICD-10-PCS; principal; 2018-08-15 14:45)
PROC: 0DCQ7ZZ Extirpation of Matter from Anus, Via Natural or Artificial Opening (ICD-10-PCS; 2018-08-20)
DX: K91.850 Pouchitis (principal); K57.80 Diverticulitis of intestine, part unspecified, with perforation and abscess without bleeding; R18.8 Other ascites; N39.0 Urinary tract infection, site not specified; K56.41 Fecal impaction; I10 Essential (primary) hypertension; M32.9 Systemic lupus erythematosus, unspecified; M06.9 Rheumatoid arthritis, unspecified; R39.15 Urgency of urination; R32 Unspecified urinary incontinence; R10.30 Lower abdominal pain, unspecified; G62.9 Polyneuropathy, unspecified; B96.1 Klebsiella pneumoniae [K. pneumoniae] as the cause of diseases classified elsewhere; R26.9 Unspecified abnormalities of gait and mobility; G89.29 Other chronic pain; M54.5 Low back pain; Z93.3 Colostomy status; Z87.891 Personal history of nicotine dependence

== ENCOUNTER 2018-11-30 12:57 | Inpatient (IN) | payer MEDICARE ==
--- NOTE | 2018-11-30 13:13 | ED PDOC ---
Arrival/HPI - General Chief Complaint: Syncope Time Seen by Provider: 11/30/18 12:58 Historian: Patient, Family (2 daughters), EMS - History of Present Illness Time/Duration: Prior to Arrival Symptom Onset: Sudden Symptom Course: Unchanged Severity Level: Severe Activities at Onset: Rest Associated Symptoms (Text): 11/30/18 13:11 Daughters report multiple episodes of syncope this morning. No seizure activity. Patient denies chest pain or palpitations. 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 She has severe chills. Low-grade fever in the emergency department. No trauma. Past Medical History - Infectious Disease Hx of Infectious Diseases: None - Tetanus Immunization Tetanus Immunization: Unknown - Cardiac Hx Cardiac Disorders: Yes Hx Hypertension: Yes - Pulmonary Hx Respiratory Disorders: No - Neurological Hx Neurological Disorder: Yes (syncope) - HEENT Hx HEENT Disorder: No - Renal Hx Renal Disorder: No - Endocrine/Metabolic Hx Endocrine Disorders: Yes Hx Systemic Lupus Erythematosus: Yes - Hematological/Oncological Hx Blood Transfusions: Yes Hx Blood Transfusion Reaction: No - Integumentary Hx Dermatological Disorder: Yes Other/Comment: multiple skin discolorations ble - Musculoskeletal/Rheumatological Hx Arthritis: Yes Hx Rheumatoid Arthritis: Yes - Gastrointestinal Hx Gastrointestinal Disorders: Yes (BOWEL OBSTRUCTION,RECTAL BLEED,DIVERTICULITIS,COLOSTOMY LLQ) - Genitourinary/Gynecological Hx Genitourinary Disorders: Yes (URINARY URGENCY) - Psychiatric Hx Psychophysiologic Disorder: No Hx Substance Use: No - Surgical History Other/Comment: b/le hip replacement and left knee replacement , picc line in and out keerthi, small bowel resecton lysis of adhesions omentum patch gi lap 01/08/2015, ct scan guided drainage of sigmoid diverticular abcess - Anesthesia Hx Anesthesia Reactions: No Hx Malignant Hyperthermia: No - Suicidal Assessment Feels Threatened In Home Enviroment: No Family/Social History - Physician Review Nursing Documentation Reviewed: Yes Family/Social History: Unknown Family HX Smoking Status: Former Smoker Hx Alcohol Use: Yes (SOCIALLY) Hx Substance Use: No Hx Substance Use Treatment: No Allergies/Home Meds Allergies/Adverse Reactions: Allergies No Known Allergies Allergy (Verified 08/13/18 17:45) Home Medications: Home Meds Medication Instructions Recorded Confirmed Verapamil [Calan SR Tab] 90 mg PO DAILY 09/20/14 08/13/18 predniSONE [predniSONE Tab] 5 mg PO DAILY 07/16/16 08/13/18 Methotrexate 8 mg PO QWK 08/19/16 08/13/18 Pregabalin [Lyrica] 25 mg PO HS 08/14/18 08/13/18 Review of Systems - Review of Systems Systems not reviewed;Unavailable: Altered Mental Status Physical Exam Vital Signs Temp Pulse Resp BP Pulse Ox 11/30/18 13:07 100.2 F H 84 20 160/96 H 98 Temperature: Febrile Blood Pressure: Normal Pulse: Regular Respiratory Rate: Normal Appearance: Positive for: Well-Appearing, Non-Toxic, Uncomfortable, Other (Chronically ill-appearing) Pain Distress: None Mental Status: Positive for: Confused, other (Oriented x2 only) - Systems Exam Head: Present: Atraumatic, Normocephalic Pupils: Present: PERRL Extroacular Muscles: Present: EOMI Conjunctiva: Present: Normal Mouth: Present: Moist Mucous Membranes Pharnyx: No: ERYTHEMA, EXUDATE, TONSILS ENLARGED Neck: Present: Normal Range of Motion Respiratory/Chest: Present: Clear to Auscultation, Good Air Exchange, Decreased Breath Sounds. No: Respiratory Distress, Accessory Muscle Use Cardiovascular: Present: Regular Rate and Rhythm, Normal S1, S2. No: Murmurs Abdomen: Present: Other (Functioning colostomy). No: Tenderness, Distention, Peritoneal Signs, Rebound, Guarding Back: Present: Normal Inspection Upper Extremity: Present: Normal Inspection. No: Cyanosis, Edema Lower Extremity: Present: Normal Inspection. No: Edema Neurological: Present: GCS=15, CN II-XII Intact, Speech Normal, Motor Func Grossly Intact Skin: Present: Warm, Dry, Normal Color. No: Rashes Medical Decision Making ED Course and Treatment: 11/30/18 13:18 EKG shows normal sinus rhythm with a sinus arrhythmia rate approximately [address] and T wave changes. - RAD Interpretation Radiology Orders: 11/30/18 13:07 CHEST PORTABLE [RAD] Stat 11/30/18 13:09 HEAD W/O CONTRAST [CT] Stat X-ray chest one view shows cardiomegaly and limited view with no acute findings as read by the radiologist. CT scan of the head is read by the radiologist shows no acute findings. 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 Ulcer: No History Surgical Site Infection Following: None - Disposition Have Diagnosis and Disposition been Completed?: Yes Diagnosis: UTI (urinary tract infection), Syncope, Fever Disposition: HOSPITALIZED Disposition Time: 14:52 Patient Plan: Observation, Telemetry Condition: FAIR Discharge Instructions (ExitCare): Syncope (ED) Forms: [employer] ([place])
[2018-11-30] MEDS ORDERED: Sodium Chloride 0.9% 500 ML IV ONE (13:15)
[2018-11-30] MEDS ORDERED: cefTRIAXone 1 gm 1 GM/100 ML BAG IVPB STA (13:33)
[2018-11-30 13:44] LABS: ALB/GLOB RATIO 1.5 (1.1-1.8); ALT/SGPT 15 U/L (7-56); AST/SGOT 23 U/L (14-36); BASO # 0.03 K/mm3 (0.0-2.0); BASO % 0.4 % (0.0-3.0); BLOOD UREA NITROGEN 18 mg/dL (7-21); CALCIUM 9.2 mg/dL (8.4-10.5); EOS % 0.4 % (1.5-5.0); GFR NON-AFRICAN AMERICAN 47; LYMPH # 0.4 (1.2-3.4); LYMPH % 5.5 % (22.0-35.0); MEAN CORPUSCULAR HEMOGLOBIN 30.7 pg (25.0-35.0); MEAN CORPUSCULAR HGB CONC 32.3 g/dl (31.0-37.0); MEAN PLATELET VOLUME 9.1 fl (7.0-11.0); MONO # 0.7 (0.1-0.6); MONO % 8.9 % (1.0-6.0); RBC 4.23 10^6/uL (3.5-6.1); RED CELL DISTRIBUTION WIDTH 16.2 % (11.5-14.5); WHITE BLOOD COUNT 7.6 10^3/uL (4.5-11.0)
[2018-11-30 13:47] LABS: INR 1.1; PARTIAL THROMBOPLASTIN TIME 27.7 Seconds (26.9-38.3); PROTHROMBIN TIME 12.2 SECONDS (9.4-12.5)
[2018-11-30 13:56] LABS: TROPONIN I < 0.01 ng/mL
[2018-11-30 14:02] LABS: VENOUS BLOOD GAS BASE EXCESS 1.5 mmol/L (0.0-2.0); VENOUS BLOOD GAS PO2 26 mm/Hg (30-55); VENOUS BLOOD PH 7.38 (7.32-7.43)
--- NOTE | 2018-11-30 14:14 | RAD ---
HISTORY: Sepsis Patient COMPARISON: Chest x-ray performed 08/20/18 TECHNIQUE: Chest, one view. FINDINGS: The left lung apex excluded from view. Examination limited by habitus and patient obliquity. LUNGS: No focal consolidation. Please note that chest x-ray has limited sensitivity for the detection of pulmonary masses. PLEURA: No significant pleural effusion identified. No definite pneumothorax . CARDIOVASCULAR: Cardiomegaly. Ectatic aorta with atherosclerotic calcifications present. OSSEOUS STRUCTURES: Osseous demineralization. Chronic appearing deformity of the proximal right humerus. VISUALIZED UPPER ABDOMEN: Unremarkable. OTHER FINDINGS: None. IMPRESSION: Limited study as above. No focal consolidation. Cardiomegaly.
--- NOTE | 2018-11-30 14:22 | CARD ---
APPROVED REPORT Date of service: 11/30/2018 EKG Measurement Heart [id number] <Conclusion> Sinus rhythm with marked sinus arrhythmia Nonspecific ST and T wave abnormality Abnormal ECG
[2018-11-30 14:33] LABS: URINE APPEARANCE SL CLOUDY (CLEAR); URINE BILIRUBIN NEGATIVE (NEGATIVE); URINE BLOOD TRACE-INTACT (NEGATIVE); URINE COLOR YELLOW (YELLOW); URINE GLUCOSE (UA) NEGATIVE (NEGATIVE); URINE LEUKOCYTE ESTERASE SMALL Leu/uL (NEGATIVE); URINE PROTEIN NEGATIVE mg/dL (<30 mg/dL); URINE UROBILINOGEN 0.2 E.U./dL (<1 E.U./dL)
--- NOTE | 2018-11-30 14:35 | CT ---
Date of service: 11/30/2018 PROCEDURE: CT HEAD WITHOUT CONTRAST. HISTORY: syncope COMPARISON: None available. TECHNIQUE: Axial computed tomography images were obtained through the head/brain without intravenous contrast. Radiation dose: Total exam DLP = 913.97 mGy-cm. This CT exam was performed using one or more of the following dose reduction techniques: Automated exposure control, adjustment of the mA and/or kV according to patient size, and/or use of iterative reconstruction technique. FINDINGS: HEMORRHAGE: No intracranial hemorrhage. BRAIN: No mass effect or edema. Chronic microvascular changes in the periventricular white matter. No acute intracranial findings VENTRICLES: Unremarkable. No hydrocephalus. CALVARIUM: Unremarkable. PARANASAL SINUSES: Unremarkable as visualized. No significant inflammatory changes. MASTOID AIR CELLS: Unremarkable as visualized. No inflammatory changes. OTHER FINDINGS: None. IMPRESSION: No acute intracranial findings.
[2018-11-30 14:41] LABS: URINE WBC 15 - 20 /hpf (0-6)
[2018-11-30 20:50] VITALS: BMI 18.0
[2018-11-30] MEDS ORDERED: Pneumococcal 23-Valent Vaccine IM ONE (20:50)
[2018-11-30] MEDS ORDERED: Verapamil 180 mg ER Tab PO STA (23:25)
--- NOTE | 2018-12-01 05:36 | CP.PCM.PN ---
Subjective - Date & Time of Evaluation Date of Evaluation: 12/01/18 Time of Evaluation: 05:36 - Subjective Subjective: Patient was seen because of elevated blood pressure. This 88-year-old woman was admitted through the emergency room because of an episode of syncope. Has past medical history of hypertension, rheumatoid arthritis, diverticulitis, perforated diverticulum in 2015, left knee replacement, bilateral hip replacement, small bowel resection due to bowel obstruction, Jacek procedure for perforated ulcer. Objective - Vital Signs/Intake and Output Vital Signs (last 24 hours): Temp Pulse Resp BP Pulse Ox 99 F 100 H 19 160/80 H 96 12/01/18 03:04 12/01/18 02:00 11/30/18 23:17 12/01/18 01:23 11/30/18 23:17 Intake and Output: 11/30/18 12/01/18 18:59 06:59 Intake Total 240 Balance 240 - Medications Medications: Current Medications Prednisone (Prednisone Tab) 5 mg PO DAILY OG Pregabalin (Lyrica) 25 mg PO HS OG Last Admin: 11/30/18 21:26 Dose: 25 mg Verapamil HCl (Calan Sr Tab) 90 mg PO DAILY [facility] - Labs Labs: 11/30/18 13:24 11/30/18 13:24 PT 12.2 SECONDS (9.4-12.5) 11/30/18 13:24 INR 1.10 11/30/18 13:24 APTT 27.7 Seconds (26.9-38.3) 11/30/18 13:24 - Constitutional Appears: Well, No Acute Distress - Head Exam Head Exam: ATRAUMATIC, NORMAL INSPECTION, NORMOCEPHALIC - Eye Exam Eye Exam: Normal appearance - ENT Exam ENT Exam: Normal External Ear Exam - Neck Exam Neck Exam: Normal Inspection - Respiratory Exam Respiratory Exam: NORMAL BREATHING PATTERN - Cardiovascular Exam Cardiovascular Exam: absent: JVD - GI/Abdominal Exam GI & Abdominal Exam: absent: Distended - Rectal Exam Rectal Exam: Deferred - Extremities Exam Additional comments: Deferred. - Back Exam Back Exam: NORMAL INSPECTION - Neurological Exam Neurological Exam: Alert, Awake, Oriented x3 - Psychiatric Exam Psychiatric exam: Normal Affect, Normal Mood - Skin Skin Exam: Normal Color Assessment and Plan - Assessment and Plan (Free Text) Assessment: Elevated blood pressure reading. Rheumatoid arthritis. Hypertension. History of diverticulitis.
[2018-12-01] MEDS: Verapamil 180 mg ER Tab PO SCH (10:09)
[2018-12-01] MEDS: cefTRIAXone 1 gm 1 GM/100 ML BAG IVPB SCH (10:10)
--- NOTE | 2018-12-01 11:59 | CARD ---
APPROVED REPORT Date of service: 12/01/2018 EXAM: Two-dimensional and M-mode echocardiogram with Doppler and color Doppler. INDICATION Syncope 2D DIMENSIONS Left Atrium (2D)3.2 (1.6-4.0cm)IVSd1.4 (0.7-1.1cm) LVDd3.8 (3.9-5.9cm)PWd1.3 (0.7-1.1cm) LVDs2.7 (2.5-4.0cm)FS (%) 29.3 % LVEF (%)57.0 (>50%) M-Mode DIMENSIONS Aortic Root2.70 (2.2-3.7cm)Aortic Cusp Exc.1.40 (1.5-2.0cm) Aortic Valve AoV Peak Awoxctqr454.0cm/Christopher Peak GR.12mmHg Mitral Valve E/A ratio0.0 TDI E/Lateral E'0.0E/Medial E'0.0 Tricuspid Valve TR Peak [id number] [id number] Peak Gr.18mmHg [id number] LEFT VENTRICLE The left ventricle cavity is small. There is mild concentric left ventricular hypertrophy. The left ventricular function is normal. The left ventricular ejection fraction is within the normal range. There is normal LV segmental wall motion. RIGHT VENTRICLE The right ventricle is normal size. The right ventricular systolic function is normal. ATRIA The left atrium size is normal. The right atrium size is normal. The interatrial septum is intact with no evidence for an atrial septal defect. AORTIC VALVE The aortic valve is normal in structure. No aortic regurgitation is present. There is no aortic valvular stenosis. MITRAL VALVE The mitral valve is normal in structure. There is no mitral valve regurgitation noted. TRICUSPID VALVE The tricuspid valve is normal in structure. There is mild tricuspid regurgitation. PULMONIC VALVE The pulmonary valve is normal in structure. GREAT VESSELS The aortic root is normal in size. The IVC is normal in size and collapses >50% with inspiration. PERICARDIAL EFFUSION There is no pleural effusion. There is no pericardial effusion. <Conclusion> Small LV cavity size. Mild concentric LVH. Normal LV systolic function. Mild TR.
--- NOTE | 2018-12-01 14:16 | HP ---
DATE OF EXAM: 12/01/2018 HISTORY OF PRESENT ILLNESS: This is an 88-year-old female who is coming to the hospital with complaints of syncope. The patient apparently had multiple episodes of syncope, one of them was witnessed by the grandson according to the patient. She has a history of rheumatoid arthritis. She has a functioning colostomy. She was complaining of chills. She was found to have a temperature of 100.2 in the emergency room. The patient says she has no complaints of any headaches or dizziness. No nausea. No vomiting. No abdominal pain. No back pain. No dysuria or frequency. No nocturia. REVIEW OF SYSTEMS: All of the review of symptoms are within normal limits except what was mentioned. The patient says her arthritis pain is controlled. ALLERGIES: NO KNOWN DRUG ALLERGIES. HOME MEDICATIONS: Methotrexate, verapamil, pregabalin and prednisone. PAST MEDICAL HISTORY: Hypertension, rheumatoid arthritis, diverticulitis with perforated diverticulum in 2014. PAST SURGICAL HISTORY: 1. Jacek's procedure for perforated diverticulitis in 2014. 2. Small bowel resection due to small bowel obstruction in 2014. 3. Bilateral hip replacement. 4. Left knee replacement. FAMILY HISTORY: The patient has no cancer or heart disease in the family. SOCIAL HISTORY: She lives alone. She is able to perform her ADLs. She is not smoking or drinking. PHYSICAL EXAMINATION: VITAL SIGNS: The patient has a T-max of 100.2 this morning. The temperature is 98.7, pulse is 61, blood pressure 124/67, respirations is 19 and O2 saturation 93%. Height is 5 feet 4 inches. Weight is 105 pounds. BMI is 18. GENERAL: The patient is lying in bed, comfortable, and in no acute distress. HEENT: Atraumatic and normocephalic. Anicteric sclerae. Moist mucosa. Stedman conjunctivae. No oral lesions. NECK: No JVD, anterior and posterior adenopathy, thyromegaly, or bruits. CARDIOVASCULAR: S1 and S2 regular. No murmurs, rubs or gallops. LUNGS: Clear to auscultation bilaterally. No wheezes, rales, or rhonchi. ABDOMEN: Bowel sounds are positive. Soft, nontender and nondistended. No hepatosplenomegaly. No rebound and no guarding. EXTREMITIES: No cyanosis, clubbing, or edema. In the hands bilaterally, there is deformities in the hands and the PIP joints in the wrist bilaterally. She has Heberden's and Camilo's nodes. NEUROLOGIC: No facial asymmetry. Tongue is midline. No uvula deviation. Power is 5/5 upper extremities and lower extremities. Sensation intact in upper extremities and lower extremities. PSYCHIATRIC: She is awake, alert and oriented x3. No anxiety or depression. She has normal affect. GENITOURINARY: No CVA tenderness. VASCULAR: 2+ pulses in the carotid pulses and pedal pulses. SKIN: No erythema or nodules. SPINE: Shows normal curvature. LABORATORY DATA: White count is 7.6, hemoglobin 13 and platelet count is 295. INR is 1.1. The patient has a chemistry that shows sodium 138, potassium 3.8, creatinine is 1.1, troponin is 0.01. Urine, nitrates are negative, bilirubin is negative. CT of the head shows no acute intracranial findings. EKG shows sinus rhythm with marked sinus arrhythmia, heart rate of 75. Qtc is 404. Chest x-ray done as limited study with no focal consolidation. Cardiomegaly does present. ASSESSMENT: 1. Syncope. 2. Fall. 3. Fever. 4. Rheumatoid arthritis. 5. Urinary tract infection. 6. Hypertension. 7. Chronic lower back pain. PLAN: The patient is going to be admitted to the hospital. She has a UA that shows 15 to 20 white blood cells. She had low-grade fever. She is on methotrexate and has immunosuppressive. She may have an underlying infection. We will wait for urine cultures and blood cultures. She has been started on IV antibiotics. The patient does not have any fevers. I will continue the IV antibiotics from the ER, they seems to be improving her fever. The patent is on a regular diet. I did speak to the patient's daughter in the phone to give her an update of the patient's diagnoses and plan of care. She is going to on a regular diet. I will continue her prednisone. I will hold her methotrexate for now. The patient will need physical therapy. She is open to going to the Transitional Care Unit. I will also get Dr. Roa and Dr. Fraser from Neurology and Cardiology to evaluate the patient. Sai Ham MD [facility] # [id number]
--- NOTE | 2018-12-01 15:15 | CON ---
DATE: 12/01/2018 NEUROLOGY CONSULT CHIEF COMPLAINT: Syncope. 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 Currently, her CT of the head shows no acute intracranial abnormality. Echocardiogram showed normal left ventricular function. She has a small UTI, going gram negative which should be on antibiotics. Overall, no further syncopal events. We will possibly doing a outpatient ambulatory EEG in my office. PAST MEDICAL HISTORY: As above. SOCIAL HISTORY: No illicit drug use, smoking, or EtOH abuse. REVIEW OF SYSTEMS: A 14-point review of systems is negative except as per the HPI. MEDICATIONS: Reviewed by nurses' reconciliation sheet. FAMILY HISTORY: Noncontributory. PHYSICAL EXAMINATION: VITAL SIGNS: Temperature of 98, pulse rate of 70, blood pressure 107/64, respirations 18 and oxygen saturation 95% on room air. GENERAL: The patient is sitting up in bed. No acute distress. HEENT: Head is atraumatic and normocephalic. PERRLA. Extraocular muscles intact. NECK: Supple. No JVD. No adenopathy noted. LUNGS: Clear to auscultation. No adventitious sounds. HEART: S1 and S2. Normal rate and rhythm. No murmurs, rubs or gallops. ABDOMEN: Soft and nontender. Positive bowel sounds present. EXTREMITIES: No clubbing. No cyanosis. Peripheral pulses 2+ felt bilaterally. She has osteoarthritic changes in both hands. NEUROLOGIC: The patient is alert and oriented to person, place, month, and year. Speech is fluent without any errors. Cranial nerves II through XII are intact. Motor exam; moves all extremities equally. Toes are downgoing bilaterally. Sensory exam; light touch and pinprick, proprioception, and vibration are intact. DTRs are 2+ throughout and one at both knees and ankles. Coordination; [id number] is intact. No dysmetria noted. Gait is deferred for now. LABORATORY DATA: No new labs done today. IMPRESSION: Syncopal event to be neurocardiogenic related with the possible vasovagal component unlikely seizure type. We will recommend, 1. Outpatient ambulatory EEG to . 2. Orthostatic vital signs. 3. PT/OT evaluation. 4. Recommended daily fluid intake throughout the day. Louie Roa MD
--- NOTE | 2018-12-01 21:20 | CON ---
DATE OF CONSULTATION: 12/01/2018 REFERRING PHYSICIAN: Sai Ham MD REASON FOR CONSULTATION: Syncope. 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 She has been having issues with recurrent urinary tract infections of late. According to the daughter, on two separate occasions at home, she became unresponsive and appeared to lose consciousness. No seizure-like activity was noted. Upon arousal, she appeared cognizant of her surroundings. She did not suffer any falls or injury. In the emergency room, she was noted to have a low-grade fever. CT of the head showed no acute abnormalities. Her electrocardiogram was unremarkable and her telemetry monitoring has shown no dysrhythmias at this point in time. She has had no prior history of syncope. She herself does not feel that she lost consciousness. She is seen lying in bed on telemetry in the presence of her daughter. She has no prior cardiac history. She does have a history of hypertension. She has a longstanding history of lupus and arthritis. She has been on chronic steroid therapy for many years. She has had a prior bowel resection and colostomy for diverticular bleeding. She has undergone bilateral hip replacement as well as left knee replacement and a prior lysis of adhesions as well as drainage of her sigmoid diverticular abscess. FAMILY HISTORY: Both parents from age-related illness. There is no family history of premature heart disease. 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 She is a former smoker. She drinks occasionally. She lives at home with her family. She is . MEDICATIONS AT HOME: Lyrica, methotrexate, prednisone and verapamil. ALLERGIES: NONE. REVIEW OF SYSTEMS: A 12-point review of systems is notable mainly for arthritic complaints. She denies any PND, orthopnea or edema. PHYSICAL EXAMINATION: GENERAL: She is a very elderly woman who appears comfortable at the present time. VITAL SIGNS: Blood pressure is 116/64, pulse of 88 and sinus, respirations are 14. She is afebrile. HEENT: Normocephalic, atraumatic. NECK: Supple. No JVD noted. CHEST: Few scattered rhonchi heard. HEART: PMI displaced laterally with a soft systolic murmur at the left sternal border. ABDOMEN: Soft, nontender. Functional colostomy is noted in the left lower quadrant. Bowel sounds are present. EXTREMITIES: No clubbing, cyanosis or edema. Arthritic changes noted. SKIN: Warm and dry. PSYCHIATRIC: Normal mood and affect. NEUROLOGIC: Alert and oriented x3. No gross motor or sensory deficits noted. Of note, she did have a temperature of 100.2 yesterday. DIAGNOSTIC DATA: White count 7.6, hemoglobin and hematocrit 13 and 40.2 with a platelet count of 295,000. PT/PTT normal. Venous blood gas: pH 7.38, pCO2 of 46, pO2 of 26. Potassium 3.8, BUN and creatinine 18 and 1.1. Troponin is not detected. Chest x-ray reveals increased cardiac silhouette with aortic ectasia, no infiltrates or pulmonary vascular congestion. Electrocardiogram reveals sinus rhythm with sinus arrhythmia and nonspecific STT abnormalities. IMPRESSION: 1. Witnessed loss of consciousness, exact etiology unclear. The patient is maintained on Verapamil and the possibility of bradyarrhythmia does exist. There are no historical findings to pinpoint or lean towards one cause or another. Possibility of underlying urosepsis may also be playing a role. 2. History of hypertension, controlled. 3. Recurrent urinary tract infections. 4. Rest of the problems as noted. RECOMMENDATIONS: A 24-hour observation appears reasonable. Cultures are pending. An echocardiogram will be obtained to assess her left ventricular size and function. If she has any recurrent in-hospital episodes, a more thorough evaluation can be initiated. Consideration may need to be given to switching from verapamil to an alternative antihypertensive agent should she exhibit evidence of significant bradycardia. Thank you for this consultation. I would be happy to follow along through her hospital course. Dirk Fraser MD
[2018-12-02] MEDS: cefTRIAXone 1 gm 1 GM/100 ML BAG IVPB SCH (09:27)
[2018-12-02] MEDS: Verapamil 180 mg ER Tab PO SCH (09:28)
--- NOTE | 2018-12-02 10:04 | PN ---
DATE: 12/02/2018 SUBJECTIVE: The patient is seen lying comfortably on 3R. She denies any lightheadedness. She remains afebrile. MEDICATIONS: Her current medications include Calan SR, Lyrica, prednisone and Rocephin. OBJECTIVE: GENERAL: She is an elderly woman who is comfortable at rest. VITAL SIGNS: Blood pressure is 106/60 with a pulse of 78 and respirations are 16. She is afebrile. HEENT: No JVD. CHEST: Clear to auscultation and percussion. HEART: PMI in normal position. No pathologic murmurs or gallops noted. ABDOMEN: Soft and nontender, normoactive bowel sounds. Colostomy is in place. EXTREMITIES: No edema. DIAGNOSTIC DATA: Echocardiogram revealed mild concentric LVH with normal LV systolic function. Left ventricular cavity size appears somewhat small. Mild tricuspid regurgitation was present. IMPRESSION: 1. Recent transient loss of consciousness. Workup thus far unremarkable. 2. Recurrent urinary tract infections. 3. History of hypertension. 4. History of lupus and arthritis. RECOMMENDATIONS: At this time, conservative management appears most appropriate. No further workup appears necessary unless her symptoms recur. If she does have recurrent syncope, Holter monitor or a 30 day event monitor may be necessary. Consideration may need to be given to switching her verapamil to an agent which does not potentially induce bradyarrhythmias. From a cardiac standpoint, she appears stable for discharge home at this time. Dirk Fraser MD MTDD
--- NOTE | 2018-12-02 15:41 | PN ---
DATE: 12/02/2018 SUBJECTIVE: The patient has no complaints of any chest pain or shortness of breath or headaches or dizziness. PHYSICAL EXAMINATION: VITAL SIGNS: Temperature is 97.6, pulse of 65, blood pressure is 143/81, respirations 18. GENERAL: The patient is lying in bed, flat, comfortable. HEENT: No oral lesion. Anicteric sclerae. Moist mucosa. NECK: No JVD, adenopathy, or thyromegaly. CARDIOVASCULAR: S1 and S2, regular. No murmurs, rubs, or gallops. LUNGS: Clear to auscultation bilaterally. No wheeze, rales, or rhonchi. ABDOMEN: Bowel sounds are positive, soft, nontender and nondistended. EXTREMITIES: No cyanosis, clubbing or edema. LABORATORY DATA: Blood cultures are negative. Urine cultures shows Klebsiella sensitive to Rocephin. Echo shows mild concentric LVH and mild TR. ASSESSMENT: 1. Urinary tract infection secondary to Klebsiella. 2. Rheumatoid arthritis. 3. Hypertension. 4. Chronic back pain. 5. Osteoarthritis. 6. Fall. 7. Syncope, improved. PLAN: The patient is currently on verapamil for her hypertension, she is going to continue. She is on Rocephin for IV antibiotics. She is going to be on prednisone. I will hold her methotrexate for her rheumatoid arthritis. The patient is on Lyrica for her neuropathy. She is on regular diet. She is thinking about going to Transitional Care Unit. I did recommend that she should probably go for physical therapy. I did speak to the patient's daughter yesterday to give her an update. Physical Therapy did evaluate the patient and recommend TCU. I will place a TCU eval in case if she does decide to go to the Transitional Care Unit. Sai Ham MD
[2018-12-03] MEDS: Verapamil 180 mg ER Tab PO SCH (11:27)
[2018-12-03] MEDS: cefTRIAXone 1 gm 1 GM/100 ML BAG IVPB SCH (11:29)
--- NOTE | 2018-12-03 14:47 | CP.PCM.APN ---
Subjective - Date & Time of Evaluation Date of Evaluation: 12/03/18 Time of Evaluation: 11:00 - Subjective Subjective: Pt. seen, ambulating in reich with PT, states back pain has improved, denied any other complaints. Pt. informed PT rec. TCU. Objective - Vital Signs/Intake and Output Vital Signs (last 24 hours): Temp Pulse Resp BP Pulse Ox 97.8 F 65 19 129/68 98 12/03/18 07:59 12/03/18 11:27 12/03/18 07:59 12/03/18 11:27 12/03/18 07:59 - Medications Medications: Current Medications Ceftriaxone Sodium (Rocephin 1 Gram Ivpb) 1 gm in 100 mls @ 100 mls/hr IVPB DAILY [facility]; Protocol Last Admin: 12/03/18 11:29 Dose: 100 mls/hr Prednisone (Prednisone Tab) 5 mg PO DAILY [facility] Last Admin: 12/03/18 11:28 Dose: 5 mg Pregabalin (Lyrica) 25 mg PO HS [facility] Last Admin: 12/02/18 21:08 Dose: 25 mg Verapamil HCl (Calan Sr Tab) 90 mg PO DAILY [facility] Last Admin: 12/03/18 11:27 Dose: 90 mg - Labs Labs: 11/30/18 13:24 11/30/18 13:24 PT 12.2 SECONDS (9.4-12.5) 11/30/18 13:24 INR 1.10 11/30/18 13:24 APTT 27.7 Seconds (26.9-38.3) 11/30/18 13:24 - Constitutional Appears: Well, Non-toxic - Head Exam Head Exam: NORMOCEPHALIC - Eye Exam Eye Exam: Normal appearance - ENT Exam ENT Exam: Normal Exam - Neck Exam Neck Exam: Full ROM - Respiratory Exam Respiratory Exam: Clear to Ausculation Bilateral, NORMAL BREATHING PATTERN - Cardiovascular Exam Cardiovascular Exam: REGULAR RHYTHM - GI/Abdominal Exam GI & Abdominal Exam: Soft, Normal Bowel Sounds - Rectal Exam Rectal Exam: Deferred - Exam Exam: absent: Circumcision, NORMAL INSPECTION, Scrotal Swelling, Testicular Tenderness, Uretheral Discharge, Testicular Vertical Lie, Bladder Distension Speculum exam: absent: Cervical Discharge, Erythema, Foreign Body, Laceration, NORMAL SPECULUM EXAM, Tissue, Vaginal Bleeding, Vaginal Discharge Bimanual exam: absent: Adenexal Mass, Adnexal, Cervical Motion Tendernes, NORMAL BIMANUAL EXAM, Uterine Enlargement, Uterine Tenderness - Extremities Exam Extremities Exam: absent: Calf Tenderness, Full ROM, Joint Swelling, Normal Capillary Refill, Normal Inspection, Pedal Edema, Tenderness - Back Exam Back Exam: NORMAL INSPECTION - Neurological Exam Neurological Exam: Alert, Awake, Oriented x3 - Psychiatric Exam Psychiatric exam: Normal Affect - Skin Skin Exam: Dry, Intact, Normal Color, Warm Assessment and Plan - Assessment and Plan (Free Text) Assessment: ITS Impressions Chest X-Ray 11/30/18 13:07 IMPRESSION: Limited study as above. No focal consolidation. Cardiomegaly. Head CT 11/30/18 13:09 IMPRESSION: No acute intracranial findings. Microbiology 11/30/18 13:40 Blood Blood Culture - Preliminary NO GROWTH AFTER 3 DAYS 11/30/18 13:30 Blood Blood Culture - Preliminary NO GROWTH AFTER 3 DAYS 11/30/18 14:05 Urine,Catheterized Urine Culture - Final Klebsiella Oxytoca No Known Allergies Allergy (Verified 11/30/18 17:02) Assessment: 1. UTI. with Klebsiella Oxytoca cont. IV Rocephin, per PMD. 2. Syncope resolved likely weakness r/t infectious process pT rec TCU TCu eval pending.
--- NOTE | 2018-12-03 16:49 | CP.PCM.PN ---
<Román Yeung - Last Filed: 12/03/18 16:45> Subjective - Date & Time of Evaluation Date of Evaluation: 12/03/18 Time of Evaluation: 08:37 - Subjective Subjective: Román Yeung D.O. PGY-3, Internal Medicine Resident, Dr. Ham's Service, Progress Note 88-year-old female with a past medical history of rheumatoid arthritis, diverticulosis status post colectomy with colostomy, and hypertension who pres ented for complaint of syncope. Patient was seen and examined at bedside. Patient states that she is overall feeling better. No active complaints at this time. Objective - Vital Signs/Intake and Output Vital Signs (last 24 hours): Temp Pulse Resp BP Pulse Ox 97.8 F 65 19 129/68 98 12/03/18 07:59 12/03/18 11:27 12/03/18 07:59 12/03/18 11:27 12/03/18 07:59 - Medications Medications: Current Medications Ceftriaxone Sodium (Rocephin 1 Gram Ivpb) 1 gm in 100 mls @ 100 mls/hr IVPB DAILY [facility]; Protocol Last Admin: 12/03/18 11:29 Dose: 100 mls/hr Prednisone (Prednisone Tab) 5 mg PO DAILY [facility] Last Admin: 12/03/18 11:28 Dose: 5 mg Pregabalin (Lyrica) 25 mg PO HS [facility] Last Admin: 12/02/18 21:08 Dose: 25 mg Verapamil HCl (Calan Sr Tab) 90 mg PO DAILY [facility] Last Admin: 12/03/18 11:27 Dose: 90 mg - Labs Labs: 11/30/18 13:24 11/30/18 13:24 PT 12.2 SECONDS (9.4-12.5) 11/30/18 13:24 INR 1.10 11/30/18 13:24 APTT 27.7 Seconds (26.9-38.3) 11/30/18 13:24 - Constitutional Appears: Chronically Ill - Head Exam Head Exam: ATRAUMATIC - Eye Exam Eye Exam: EOMI. absent: Scleral icterus - ENT Exam ENT Exam: Mucous Membranes Moist - Neck Exam Neck Exam: Normal Inspection - Respiratory Exam Respiratory Exam: absent: Rales, Rhonchi, Wheezes - Cardiovascular Exam Cardiovascular Exam: +S1, +S2. absent: Gallop, Rubs - GI/Abdominal Exam GI & Abdominal Exam: Soft, Normal Bowel Sounds. absent: Tenderness - Extremities Exam Extremities Exam: absent: Calf Tenderness - Neurological Exam Neurological Exam: Alert, Awake - Skin Skin Exam: Dry, Warm Assessment and Plan - Assessment and Plan (Free Text) Assessment: 88-year-old female with a past medical history of rheumatoid arthritis, diverticulosis status post colectomy with colostomy, and hypertension who presented for complaint of syncope. Plan: 1. Syncope 2. Klebsiella oxytoca urinary tract infection 3. Hypertension 4. Rheumatoid arthritis 5. Neuropathy Consultation by neurology reviewed and appreciated, patient to have outpatient ambulatory EEG. Cardiology consultation also reviewed and appreciated as well. Patient currently on Rocephin for her urinary tract infection. We will continue at this time. We will continue on verapamil for hypertension. Continue her prednisone. Continue Lyrica for neuropathy. We are pending evaluation for transitional care unit where she can continue physical therapy to regain her strength. Discussed with case management. We will follow-up and transfer to TCU once accepted. Patient was seen and examined and case was discussed with attending physician. <Sai Ham S - Last Filed: 12/03/18 17:17> Objective - Vital Signs/Intake and Output Vital Signs (last 24 hours): Temp Pulse Resp BP Pulse Ox 97.8 F 65 19 129/68 98 12/03/18 07:59 12/03/18 11:27 12/03/18 07:59 12/03/18 11:27 12/03/18 07:59 - Medications Medications: Current Medications Ceftriaxone Sodium (Rocephin 1 Gram Ivpb) 1 gm in 100 mls @ 100 mls/hr IVPB DAILY [facility]; Protocol Last Admin: 12/03/18 11:29 Dose: 100 mls/hr Prednisone (Prednisone Tab) 5 mg PO DAILY [facility] Last Admin: 12/03/18 11:28 Dose: 5 mg Pregabalin (Lyrica) 25 mg PO HS [facility] Last Admin: 12/02/18 21:08 Dose: 25 mg Verapamil HCl (Calan Sr Tab) 90 mg PO DAILY [facility] Last Admin: 12/03/18 11:27 Dose: 90 mg - Labs Labs: 11/30/18 13:24 11/30/18 13:24 PT 12.2 SECONDS (9.4-12.5) 11/30/18 13:24 INR 1.10 11/30/18 13:24 APTT 27.7 Seconds (26.9-38.3) 11/30/18 13:24 Assessment and Plan - Assessment and Plan (Free Text) Plan: Pt seen and examined by me. I have reviewed the note of the medical insurance verifier and I agree with it. I have discussed the assessment and plan with the resident. I have reviewed the medications and the last labs.
--- NOTE | 2018-12-04 01:46 | DS ---
HOSPITAL COURSE: The patient was seen and examined, I do agree with the note of the medical secretary teacher. I was involved in the plan of care. The patient had come into the hospital because of falls and possible syncope. The patient found to have urinary tract infection secondary to Klebsiella. She was started on IV antibiotics. She has improvement of her symptoms. She is on verapamil for her hypertension. She is on Lyrica for neuropathy. The patient is going to be discharged to the transitional care unit. She is currently comfortable. Sai Ham MD
[2018-12-04 08:38] VITALS: RESP 18; TEMP 98.3; O2SAT 96
[2018-12-04 09:37] VITALS: BP 174/98; PULSE 60
[2018-12-04] MEDS: Verapamil 180 mg ER Tab PO SCH (09:37)
[2018-12-04] MEDS: cefTRIAXone 1 gm 1 GM/100 ML BAG IVPB SCH (09:37)
--- NOTE | 2018-12-04 17:13 | CP.PCM.PN ---
<Román Yeung - Last Filed: 12/04/18 17:10> Subjective - Date & Time of Evaluation Date of Evaluation: 12/04/18 Time of Evaluation: 08:32 - Subjective Subjective: Román Yeung D.O. PGY-3, Internal Medicine Resident, Dr. Ham's Service, Progress Note 88-year-old female with a past medical history of rheumatoid arthritis, diverticulosis status post colectomy with colostomy, and hypertension who pres ented for complaint of syncope. Patient was seen and examined at bedside. Comfortable. No acute complaints. Eager to get better. Objective - Vital Signs/Intake and Output Vital Signs (last 24 hours): Temp Pulse Resp BP Pulse Ox 98.3 F 60 18 174/98 H 96 12/04/18 08:37 12/04/18 09:37 12/04/18 08:37 12/04/18 09:37 12/04/18 08:37 Intake and Output: 12/04/18 12/04/18 06:59 18:59 Intake Total 240 Balance 240 - Medications Medications: Current Medications Ceftriaxone Sodium (Rocephin 1 Gram Ivpb) 1 gm in 100 mls @ 100 mls/hr IVPB DAILY [facility]; Protocol Last Admin: 12/04/18 09:37 Dose: 100 mls/hr Prednisone (Prednisone Tab) 5 mg PO DAILY [facility] Last Admin: 12/04/18 09:37 Dose: 5 mg Pregabalin (Lyrica) 25 mg PO HS [facility] Last Admin: 12/03/18 21:09 Dose: 25 mg Verapamil HCl (Calan Sr Tab) 90 mg PO DAILY [facility] Last Admin: 12/04/18 09:37 Dose: 90 mg - Labs Labs: 11/30/18 13:24 11/30/18 13:24 PT 12.2 SECONDS (9.4-12.5) 11/30/18 13:24 INR 1.10 11/30/18 13:24 APTT 27.7 Seconds (26.9-38.3) 11/30/18 13:24 - Constitutional Appears: Chronically Ill - Head Exam Head Exam: ATRAUMATIC - Eye Exam Eye Exam: EOMI. absent: Scleral icterus - ENT Exam ENT Exam: Mucous Membranes Moist - Neck Exam Neck Exam: Normal Inspection - Respiratory Exam Respiratory Exam: absent: Rales, Rhonchi, Wheezes - Cardiovascular Exam Cardiovascular Exam: +S1, +S2. absent: Gallop, Rubs - GI/Abdominal Exam GI & Abdominal Exam: Soft, Normal Bowel Sounds. absent: Tenderness - Extremities Exam Extremities Exam: absent: Calf Tenderness - Neurological Exam Neurological Exam: Alert, Awake - Skin Skin Exam: Dry, Warm Assessment and Plan - Assessment and Plan (Free Text) Assessment: 88-year-old female with a past medical history of rheumatoid arthritis, diverticulosis status post colectomy with colostomy, and hypertension who presented for complaint of syncope. Plan: 1. Syncope 2. Klebsiella oxytoca urinary tract infection 3. Hypertension 4. Rheumatoid arthritis 5. Neuropathy Patient pending a bed in TCU for continued rehabilitation at this time. Bed placement is pending. Discussed with case management. Continue with Rocephin for UTI. Continue with prednisone 5 mg. Continue with Lyrica for neuropathic pain. Continue with verapamil now 90 for hypertension. We will follow-up once physically moved to transitional care unit. Patient was seen and examined and case was discussed with attending physician. <Sai Ham S - Last Filed: 12/04/18 17:52> Objective - Vital Signs/Intake and Output Vital Signs (last 24 hours): Temp Pulse Resp BP Pulse Ox 98.3 F 60 18 174/98 H 96 12/04/18 08:37 12/04/18 09:37 12/04/18 08:37 12/04/18 09:37 12/04/18 08:37 Intake and Output: 12/04/18 12/04/18 06:59 18:59 Intake Total 240 Balance 240 - Labs Labs: 11/30/18 13:24 11/30/18 13:24 PT 12.2 SECONDS (9.4-12.5) 11/30/18 13:24 INR 1.10 11/30/18 13:24 APTT 27.7 Seconds (26.9-38.3) 11/30/18 13:24 Assessment and Plan - Assessment and Plan (Free Text) Plan: Pt seen and examined by me. I have reviewed the note of the medical van driver and I agree with it. I have discussed the assessment and plan with the resident. I have reviewed the medications and the last labs.
--- NOTE | 2018-12-05 02:48 | DS ---
HOSPITAL COURSE: The patient was seen and examined. I do agree with the note of the medical billing and coding instructor. I was involved in the plan of care. The patient is being discharged to the Transitional Care Unit. She had a UTI secondary to Klebsiella that has been treated with Rocephin. She is on Lyrica for her neuropathy. She is on verapamil for her hypertension. She has rheumatoid arthritis and currently is on prednisone. She will need to restart her methotrexate once her infection is cleared up. The patient is eating well. Her pain is controlled. Sai Ham MD
== END 2018-12-04 17:21 | DRG 312 ==
LOC: ED 12:57 → ERH 14:50 → 2RNO 17:28 → OBSVTOIN 19:08 → 3RNO 12-01 13:27
PROVIDERS: ADMIT Internal Medicine Nephrology; ATTEND Internal Medicine Nephrology
DX: R55 Syncope and collapse (principal); N39.0 Urinary tract infection, site not specified; Z93.3 Colostomy status; I10 Essential (primary) hypertension; M32.9 Systemic lupus erythematosus, unspecified; M06.9 Rheumatoid arthritis, unspecified; Z96.643 Presence of artificial hip joint, bilateral; Z96.652 Presence of left artificial knee joint; Z87.19 Personal history of other diseases of the digestive system; G89.29 Other chronic pain; M54.5 Low back pain; M54.17 Radiculopathy, lumbosacral region; Z87.440 Personal history of urinary (tract) infections; Z79.52 Long term (current) use of systemic steroids; G62.9 Polyneuropathy, unspecified; Z87.891 Personal history of nicotine dependence; Z90.49 Acquired absence of other specified parts of digestive tract

== ENCOUNTER 2018-12-04 17:23 | Inpatient (IN) | payer OTHER, MEDICARE ==
[2018-12-04 20:01] VITALS: BMI 18.3
[2018-12-05] MEDS ORDERED: cefTRIAXone 1 gm 1 GM/100 ML BAG IVPB SCH (06:00)
--- NOTE | 2018-12-05 06:41 | CP.PCM.HP ---
<Román Yeung - Last Filed: 12/05/18 12:26> History of Present Illness - History of Present Illness History of Present Illness: Román Yeung D.O. PGY-3, Internal Medicine Resident, Dr. Ham's Service, H&P CC: gait dysfunction 88-year-old female with a past medical history of rheumatoid arthritis, diverticulosis status post colectomy with colostomy, and hypertension who presented for complaint of syncope, was subsequently found to have a UTI and was treated inpatient, now with gait dysfunction in TCU for physical therapy. Patient was seen and evaluated at bedside. States that overall she is doing a little better everyday. Wants to get stronger so that she can go home. No active complaints at this time, enjoying breakfast. PMH: as above PSH: Jacek's procedure for perforated diverticulitis, small bowel resection for SBO, BL hip replacements, L knee replacement SH: denies all FH: denies Meds: reviewed Allergies: NKA Present on Admission - Present on Admission Any Indicators Present on Admission: No Review of Systems - Review of Systems All systems: reviewed and no additional remarkable complaints except (as per HP I) Past Patient History - Infectious Disease Hx of Infectious Diseases: None - Tetanus Immunizations Tetanus Immunization: Unknown - Past Social History Smoking Status: Former Smoker - CARDIAC Hx Cardiac Disorders: Yes Hx Hypertension: Yes - PULMONARY Hx Respiratory Disorders: No - NEUROLOGICAL Hx Neurological Disorder: Yes (syncope) Hx Dizziness: Yes - HEENT Hx HEENT Problems: No - RENAL Hx Chronic Kidney Disease: No - ENDOCRINE/METABOLIC Hx Endocrine Disorders: Yes Hx Systemic Lupus Erythematosus: Yes - HEMATOLOGICAL/ONCOLOGICAL Hx Blood Disorders: Yes Hx Anemia: Yes - INTEGUMENTARY Hx Dermatological Problems: Yes Other/Comment: multiple skin discolorations ble - MUSCULOSKELETAL/RHEUMATOLOGICAL Hx Falls: Yes - GASTROINTESTINAL Hx Gastrointestinal Disorders: Yes (colitis/colostomy) - GENITOURINARY/GYNECOLOGICAL Hx Genitourinary Disorders: No Hx Reproductive Disorders: No - PSYCHIATRIC Hx Substance Use: No - SURGICAL HISTORY Hx Surgeries: Yes Other/Comment: b/le hip replacement and left knee replacement , picc line in and out keerthi, small bowel resecton lysis of adhesions omentum patch gi lap 01/08/2015, ct scan guided drainage of sigmoid diverticular abcess - ANESTHESIA Hx Anesthesia Reactions: No Hx Malignant Hyperthermia: No Meds Allergies/Adverse Reactions: Allergies Allergy/AdvReac Type Severity Reaction Status Date / Time No Known Allergies Allergy Verified 11/30/18 17:02 Physical Exam - Constitutional Appears: Non-toxic, No Acute Distress - Head Exam Head Exam: ATRAUMATIC, NORMOCEPHALIC - Eye Exam Eye Exam: EOMI. absent: Scleral icterus - ENT Exam ENT Exam: Mucous Membranes Moist, Normal Oropharynx - Neck Exam Neck exam: Positive for: Normal Inspection - Respiratory Exam Respiratory Exam: absent: Rales, Rhonchi, Wheezes - Cardiovascular Exam Cardiovascular Exam: +S1, +S2. absent: Rubs - GI/Abdominal Exam GI & Abdominal Exam: Soft. absent: Distended, Tenderness - Extremities Exam Extremities exam: Negative for: calf tenderness - Neurological Exam Neurological exam: Alert - Skin Skin Exam: Dry, Warm Results - Vital Signs Recent Vital Signs: Last Vital Signs Temp 98.7 F 12/04/18 18:28 Pulse 55 L 12/04/18 18:28 Resp 18 12/04/18 18:28 BP 121/64 12/04/18 18:28 Pulse Ox 99 12/04/18 18:01 Assessment & Plan - Assessment and Plan (Free Text) Assessment: 88-year-old female with a past medical history of rheumatoid arthritis, diverticulosis status post colectomy with colostomy, and hypertension who presented for complaint of syncope, was subsequently found to have a UTI and was treated inpatient, now with gait dysfunction in TCU for physical therapy. Plan: 1. Gait dysfunction 2. Syncope likely 2/2 urinary tract infection 3. Klebsiella oxytoca urinary tract infection 4. Hypertension 5. Rheumatoid arthritis 6. Neuropathy Patient will be admitted to transitional care unit for physical therapy. Her Rocephin has been switched to p.o. Vantin. She completed 5 days of Rocephin IV. We will continue with prednisone for rheumatoid arthritis and continue to hold methotrexate given her active infection. We will continue verapamil for high blood pressure. Will continue with Lyrica for neuropathy. We will be monitoring the patient closely during her rehabilitation. Patient was seen and examined and case was discussed at length with attending physician. - Date & Time Date: 12/05/18 Time: 07:30 <Sai Ham - Last Filed: 12/05/18 15:36> Results - Vital Signs Recent Vital Signs: Last Vital Signs Temp 98.7 F 12/04/18 18:28 Pulse 55 L 12/04/18 18:28 Resp 18 12/04/18 18:28 BP 206/75 H 12/05/18 10:13 Pulse Ox 99 12/04/18 18:01 Assessment & Plan - Assessment and Plan (Free Text) Plan: Pt seen and examined by me. I have reviewed the note of the medical coding technician and I agree with it. I have discussed the assessment and plan with the resident. I have reviewed the medications and the last labs. Pt with UTI that has improved. She is on Vantin for PO Abx. She is on Verapamil for her BP. She will continue with Lyrica for her neuropathy. I spoke to her daughter to give her an update.
[2018-12-05] MEDS: Verapamil 180 mg ER Tab PO SCH (10:13)
--- NOTE | 2018-12-05 15:25 | CON ---
DATE: 12/05/2018 HISTORY OF PRESENT ILLNESS: This is an 88-year-old female with past medical history of lupus, on methotrexate and also arthritis and chronic lumbosacral radiculopathy at L4-L5, history of UTI, was on the medical floor with syncopal episodes and CAT scan of the head was done which showed no intracranial abnormality and the patient is transferred to [facility]. Called to evaluate the patient. PAST MEDICAL HISTORY: As above. SOCIAL HISTORY: Does not smoke. Does not drink. REVIEW OF SYSTEMS: A 10-point review of system was negative. PHYSICAL EXAMINATION: HEENT: Normocephalic and atraumatic. NECK: Supple. NEUROLOGIC: Awake and oriented to self and place. Cranial nerve II through XII were tested. Pupil reactive. Spontaneous movement of the extremities negative. Deep tendon reflexes 1+. Plantars are downgoing. Sensory appears intact. Cerebellar gait deferred. IMPRESSION AND PLAN: Syncopal episode and transferred here for rehab. Continue present management. We will followup. Juan Antonio Roa MD
[2018-12-06] MEDS: Cefpodoxime (Vantin) 200 mg Tab PO SCH (05:29)
[2018-12-06] MEDS: Verapamil 180 mg ER Tab PO SCH ×2 (08:09→09:26)
--- NOTE | 2018-12-06 15:11 | CP.PCM.PN ---
<Román Yeung - Last Filed: 12/06/18 15:08> Subjective - Date & Time of Evaluation Date of Evaluation: 12/06/18 Time of Evaluation: 07:55 - Subjective Subjective: Román Yeung D.O. PGY-3, Internal Medicine Resident, Dr. Ham's Service, Progress Note 88-year-old female with a past medical history of rheumatoid arthritis, diverticulosis status post colectomy with colostomy, and hypertension who pres ented for complaint of syncope, was subsequently found to have a UTI and was treated inpatient, now with gait dysfunction in TCU for physical therapy. Patient was seen and examined at bedside. Resting comfortably. No acute complaints. No overnight events. Objective - Vital Signs/Intake and Output Vital Signs (last 24 hours): Temp Pulse Resp BP Pulse Ox 97.5 F L 64 18 150/81 95 12/06/18 10:00 12/06/18 10:00 12/06/18 10:00 12/06/18 10:00 12/06/18 10:00 - Medications Medications: Current Medications Cefpodoxime Proxetil (Vantin) 200 mg PO 0600 [facility] Last Admin: 12/06/18 05:29 Dose: 200 mg Methotrexate (Methotrexate) 10 mg PO QWK [facility] Prednisone (Prednisone Tab) 5 mg PO 0800 [facility]; Protocol Last Admin: 12/06/18 08:09 Dose: 5 mg Pregabalin (Lyrica) 25 mg PO HS [facility]; Protocol Last Admin: 12/05/18 21:26 Dose: 25 mg Verapamil HCl (Calan Sr Tab) 90 mg PO DAILY [facility]; Protocol Last Admin: 12/06/18 09:26 Dose: 90 mg - Constitutional Appears: Non-toxic, No Acute Distress - Head Exam Head Exam: ATRAUMATIC, NORMOCEPHALIC - Eye Exam Eye Exam: EOMI. absent: Scleral icterus - ENT Exam ENT Exam: Mucous Membranes Moist, Normal Oropharynx - Neck Exam Neck Exam: Normal Inspection. absent: Lymphadenopathy - Respiratory Exam Respiratory Exam: absent: Rales, Rhonchi, Wheezes - Cardiovascular Exam Cardiovascular Exam: +S1, +S2. absent: Rubs - GI/Abdominal Exam GI & Abdominal Exam: Soft. absent: Distended, Tenderness - Extremities Exam Additional comments: RA related changes of BL hands - Neurological Exam Neurological Exam: Alert, Awake - Skin Skin Exam: Dry, Warm Assessment and Plan - Assessment and Plan (Free Text) Assessment: 88-year-old female with a past medical history of rheumatoid arthritis, diverticulosis status post colectomy with colostomy, and hypertension who presented for complaint of syncope, was subsequently found to have a UTI and was treated inpatient, now with gait dysfunction in TCU for physical therapy. Plan: 1. Gait dysfunction 2. Syncope likely 2/2 urinary tract infection 3. Klebsiella oxytoca urinary tract infection 4. Hypertension 5. Rheumatoid arthritis 6. Neuropathy Patient undergoing therapy in the transitional care unit. She is on p.o. Vantin, will continue for 2 days. She completed a total of 5 days of IV Rocephin. We will continue with prednisone for now for rheumatoid arthritis. We will continue her methotrexate this Monday. Continue with verapamil for high blood pressure. Continue Lyrica for her neuropathy. Patient was seen and examined and case was discussed at length with attending physician. <Sai Ham S - Last Filed: 12/06/18 21:31> Objective - Vital Signs/Intake and Output Vital Signs (last 24 hours): Temp Pulse Resp BP Pulse Ox 98 F 52 L 18 142/75 97 12/06/18 16:00 12/06/18 16:00 12/06/18 16:00 12/06/18 16:00 12/06/18 16:00 - Medications Medications: Current Medications Cefpodoxime Proxetil (Vantin) 200 mg PO 0600 [facility] Last Admin: 12/06/18 05:29 Dose: 200 mg Methotrexate (Methotrexate) 10 mg PO QWK OG Prednisone (Prednisone Tab) 5 mg PO 0800 [facility]; Protocol Last Admin: 12/06/18 08:09 Dose: 5 mg Pregabalin (Lyrica) 25 mg PO HS [facility]; Protocol Last Admin: 12/05/18 21:26 Dose: 25 mg Verapamil HCl (Calan Sr Tab) 90 mg PO DAILY [facility]; Protocol Last Admin: 12/06/18 09:26 Dose: 90 mg Assessment and Plan - Assessment and Plan (Free Text) Plan: Pt seen and examined by me. I have reviewed the note of the medical legal investigator and I agree with it. I have discussed the assessment and plan with the resident. I have reviewed the medications and the last labs.
--- NOTE | 2018-12-07 01:39 | PN ---
DATE: 12/06/2018 SUBJECTIVE: The patient is seen sitting in bed on transitional care unit. She states she is feeling better. Her stamina is improving. She is persisting in physical therapy on the floor. She has had no recurrent lightheadedness. Her current medications include verapamil SR 90 mg daily, Lyrica, methotrexate, prednisone and Vantin. OBJECTIVE: GENERAL: She is a very elderly woman who is comfortable at the present time. VITAL SIGNS: Blood pressure is 150/80, pulse of 64, respirations of 14. She is afebrile. HEENT: No JVD. CHEST: Clear to auscultation and percussion. HEART: PMI in normal position. Soft systolic murmur is present at the left sternal border. ABDOMEN: Soft and nontender, normoactive bowel sounds. EXTREMITIES: Rheumatoid arthritic joint changes. No edema. DIAGNOSTIC DATA: Blood work pending from this morning. IMPRESSION: 1. Recent loss of consciousness, full details unclear. Workup thus far has been negative. 2. History of hypertension, remains on verapamil. 3. History of rheumatoid arthritis. 4. History of partial colectomy for diverticulitis with colostomy. RECOMMENDATIONS: Continued conservative management appears advisable for now. If she has the evidence of recurrent syncopal events, more extensive workup can be undertaken. I will be happy to see as needed. Dirk Fraser MD
--- NOTE | 2018-12-07 02:14 | PN ---
DATE: 12/06/2018 The patient was seen and examined. I do agree with the note of the medical billing coordinator. I was involved in the plan of care. The patient is currently ambulating with physical therapy. She is improving. She has Klebsiella causing her UTI. She is on antibiotics with Vantin. She is going to be on prednisone for her rheumatoid arthritis. She is on Lyrica for her neuropathy. I did speak to the patient's daughter to give her an update on the patient's diagnosis and plan of care. She currently is doing well. Sai Ham MD
[2018-12-07] MEDS: Cefpodoxime (Vantin) 200 mg Tab PO SCH (08:06)
[2018-12-07] MEDS: Verapamil 180 mg ER Tab PO SCH ×2 (10:02→21:14)
--- NOTE | 2018-12-07 14:41 | CP.PCM.PN ---
<Román Yeung - Last Filed: 12/07/18 14:38> Subjective - Date & Time of Evaluation Date of Evaluation: 12/07/18 Time of Evaluation: 07:20 - Subjective Subjective: Román Yeung D.O. PGY-3, Internal Medicine Resident, Dr. Ham's Service, Progress Note 88-year-old female with a past medical history of rheumatoid arthritis, diverticulosis status post colectomy with colostomy, and hypertension who pres ented for complaint of syncope, was subsequently found to have a UTI and was treated inpatient, now with gait dysfunction in TCU for physical therapy. Patient was seen and examined at bedside. States blood pressure high this morning. No discomfort. Active in therapy. Objective - Vital Signs/Intake and Output Vital Signs (last 24 hours): Temp Pulse Resp BP Pulse Ox 98.4 F 46 L 18 127/65 96 12/07/18 10:00 12/07/18 10:00 12/07/18 10:00 12/07/18 10:00 12/07/18 10:00 - Medications Medications: Current Medications Acetaminophen (Tylenol 325mg Tab) 650 mg PO Q6H PRN; Protocol PRN Reason: h/a Cefpodoxime Proxetil (Vantin) 200 mg PO 0600 OG Last Admin: 12/07/18 08:06 Dose: 200 mg Methotrexate (Methotrexate) 10 mg PO QWK OG Prednisone (Prednisone Tab) 5 mg PO 0800 OG; Protocol Last Admin: 12/07/18 08:06 Dose: 5 mg Pregabalin (Lyrica) 25 mg PO HS OG; Protocol Last Admin: 12/06/18 22:17 Dose: 25 mg Verapamil HCl (Calan Sr Tab) 90 mg PO Q12H OG; Protocol - Constitutional Appears: Non-toxic, No Acute Distress - Head Exam Head Exam: ATRAUMATIC, NORMOCEPHALIC - Eye Exam Eye Exam: EOMI. absent: Scleral icterus - ENT Exam ENT Exam: Mucous Membranes Moist, Normal Oropharynx - Neck Exam Neck Exam: Normal Inspection. absent: Lymphadenopathy - Respiratory Exam Respiratory Exam: absent: Rales, Rhonchi, Wheezes - Cardiovascular Exam Cardiovascular Exam: +S1, +S2. absent: Rubs - GI/Abdominal Exam GI & Abdominal Exam: Soft. absent: Distended, Tenderness - Extremities Exam Additional comments: RA related changes of BL hands - Neurological Exam Neurological Exam: Alert, Awake - Skin Skin Exam: Dry, Warm Assessment and Plan - Assessment and Plan (Free Text) Assessment: 88-year-old female with a past medical history of rheumatoid arthritis, di verticulosis status post colectomy with colostomy, and hypertension who presented for complaint of syncope, was subsequently found to have a UTI and was treated inpatient, now with gait dysfunction in TCU for physical therapy. Plan: 1. Gait dysfunction 2. Syncope likely 2/2 urinary tract infection 3. Klebsiella oxytoca urinary tract infection 4. Hypertension 5. Rheumatoid arthritis 6. Neuropathy Continue with therapy in the TCU. Currently on Vantin for her urinary tract infection. Continue prednisone for rheumatoid arthritis, resume methotrexate tomorrow. Has been having episodes of hypertension in the mornings change her verapamil twice daily for better control. We will monitor blood pressure closely. Continue Lyrica for neuropathy. Patient was seen and examined and case was discussed at length with attending physician. <Sai Ham S - Last Filed: 12/07/18 16:56> Objective - Vital Signs/Intake and Output Vital Signs (last 24 hours): Temp Pulse Resp BP Pulse Ox 98.4 F 46 L 18 127/65 96 12/07/18 10:00 12/07/18 10:00 12/07/18 10:00 12/07/18 10:00 12/07/18 10:00 - Medications Medications: Current Medications Acetaminophen (Tylenol 325mg Tab) 650 mg PO Q6H PRN; Protocol PRN Reason: h/a Cefpodoxime Proxetil (Vantin) 200 mg PO 0600 [facility] Last Admin: 12/07/18 08:06 Dose: 200 mg Methotrexate (Methotrexate) 10 mg PO QWK OG Prednisone (Prednisone Tab) 5 mg PO 0800 OG; Protocol Last Admin: 12/07/18 08:06 Dose: 5 mg Pregabalin (Lyrica) 25 mg PO HS OG; Protocol Last Admin: 12/06/18 22:17 Dose: 25 mg Verapamil HCl (Calan Sr Tab) 90 mg PO Q12H OG; Protocol Assessment and Plan - Assessment and Plan (Free Text) Plan: Pt seen and examined by me. I have reviewed the note of the ophthalmic medical technologist and I agree with it. I have discussed the assessment and plan with the resident. I have reviewed the medications and the last labs.
[2018-12-07] MEDS ORDERED: Verapamil 180 mg ER Tab PO SCH (19:00)
--- NOTE | 2018-12-07 21:12 | PN ---
DATE: 12/07/2018 HOSPITAL COURSE: The patient has no complaints of any chest pain or shortness of breath. No headaches. No dizziness. Temperature is 98.4, pulse is 46, blood pressure is 127/65, respirations 18. The patient was seen and examined. I do agree with the note of the manager medical. I was involved in the plan of care. The patient states she is doing well. She is ambulating. Her pain is controlled. She is eating well. She is finishing her antibiotics for her urinary tract infection from Klebsiella. She has rheumatoid arthritis and is on prednisone as well as methotrexate that we only restarted. She has a neuropathy and is currently on Lyrica for her neuropathy. Sai Ham MD
[2018-12-08] MEDS: Cefpodoxime (Vantin) 200 mg Tab PO SCH (06:25)
[2018-12-08] MEDS: Verapamil 180 mg ER Tab PO SCH ×2 (08:10→20:29)
--- NOTE | 2018-12-08 15:00 | PN ---
DATE: 12/08/2018 SUBJECTIVE: The patient has no complaints of any chest pain. No shortness of breath or headaches. PHYSICAL EXAMINATION: VITAL SIGNS: Temperature is 97.9, pulse of 48, blood pressure 127/69, and respirations 16. GENERAL: The patient is lying in bed, flat, comfortable. HEENT: No oral lesion. Anicteric sclerae. Moist mucosa. NECK: No JVD, adenopathy, or thyromegaly. CARDIOVASCULAR: S1 and S2, regular. No murmurs, rubs, or gallops. LUNGS: Clear to auscultation bilaterally. No wheeze, rales, or rhonchi. ABDOMEN: Bowel sounds are positive, soft, nontender and nondistended. EXTREMITIES: no cyanosis, clubbing or edema. ASSESSMENT: 1. Fall. 2. Urinary tract infection secondary to Klebsiella oxytoca. 3. Hypertension. 4. Rheumatoid arthritis. 5. Neuropathy. PLAN: The patient is currently comfortable. She is finishing her antibiotics. She is on methotrexate weekly for rheumatoid arthritis. She is on Lyrica for neuropathy. The patient is on Tylenol p.r.n. She is getting physical therapy. I did speak to the patient's daughter at the bedside to give an update on the patient's diagnosis and plan of care. Sai Ham MD
[2018-12-09] MEDS: Verapamil 180 mg ER Tab PO SCH ×2 (08:18→20:41)
[2018-12-09 16:35] VITALS: RESP 18
--- NOTE | 2018-12-09 17:33 | PN ---
DATE: 12/09/2018 SUBJECTIVE: The patient is 88 years old, seen and examined while in gym, exercising, offers no complaints. Generalized weakness. PHYSICAL EXAMINATION: VITAL SIGNS: She is afebrile, pulse 59, respirations 19, blood pressure 157/75. LUNGS: Bilateral fair airflow. No rhonchi or crackle. HEART: S1 and S2 audible. ABDOMEN: Soft, nontender, no rebound, no guarding. NEUROLOGIC: The patient is awake and alert. Able to communicate. EXTREMITIES: Ambulates with a walker. ASSESSMENT AND PLAN: 1. Generalized weakness. 2. Deconditioning and difficulty walking. 3. Status post fall. 4. Klebsiella oxytoca urinary tract infection. 5. History of generalized osteoarthritis. 6. History of hypertension. 7. Neuropathy. Currently, the patient is on verapamil, Lyrica. She gets methotrexate once a week. She is on prednisone and Tylenol as needed. Jacinto Morales MD
[2018-12-10 07:31] VITALS: BP 120/59; PULSE 52; TEMP 98; O2SAT 97
[2018-12-10] MEDS: Verapamil 180 mg ER Tab PO SCH (07:49)
--- NOTE | 2018-12-10 13:57 | CP.PCM.DIS ---
<Román Yeung - Last Filed: 12/10/18 13:52> Provider - Provider Date of Admission: 12/04/18 17:23 Attending physician: Sai Ham MD Primary care physician: Nehemias Cai MD Consults: 12/04/18 18:00 Cardiology Consult Routine Comment: Consulting Provider: Dirk Fraser Consulting Physician: Dirk Fraser Reason for Consult: [facility] Neurology Consult Routine Comment: Consulting Provider: Juan Antonio Roa Consulting Physician: Juan Antonio Roa Reason for Consult: [facility] Time Spent in preparation of Discharge (in minutes): 40 Diagnosis - Discharge Diagnosis (1) Unable to ambulate Status: Acute (2) Syncope Status: Resolved (3) UTI (urinary tract infection) Status: Resolved Hospital Course - Hospital Course Hospital Course: Román Yeung D.O. PGY-3, Internal Medicine Resident, Dr. Ham's Service, Discharge Summary 88-year-old female with a past medical history of rheumatoid arthritis, diverticulosis status post colectomy with colostomy, and hypertension who presented for complaint of syncope, was subsequently found to have a UTI and was treated inpatient, and was transferred with gait dysfunction to TCU for physical therapy. Patient was able to participate in physical therapy and had gradual improvements in her function. Patient was able to finish p.o. Vantin for urinary tract infection. Patient had some elevated blood pressure readings and her verapamil was changed from 90 once a day to twice a day. Patient was continued on her Lyrica for neuropathy. Patient was also restarted back on methotrexate once her acute illness improved. Was also continued on prednisone 5 mg for her rheumatoid arthritis. Patient was seen and examined this morning and was doing very well. Patient was found to be in a stable condition for discharge to home after discussion with her daughter. Patient was given clear instructions to follow-up with primary medical doctor after her discharge. Follow-up call made to daughter who states that the patient is already home and is very happy to be out of the hospital. - Date & Time of H&P Date of H&P: 12/10/18 Time of H&P: 07:20 Discharge Exam - Head Exam Head Exam: ATRAUMATIC, NORMOCEPHALIC - Eye Exam Eye Exam: EOMI. absent: Scleral icterus - ENT Exam ENT Exam: Mucous Membranes Moist, Normal Oropharynx - Neck Exam Neck exam: Normal Inspection - Respiratory Exam Respiratory Exam: Clear to PA & Lateral. absent: Rales, Rhonchi, Wheezes - Cardiovascular Exam Cardiovascular Exam: +S1, +S2. absent: Gallop, Rubs - GI/Abdominal Exam GI & Abdominal Exam: Normal Bowel Sounds, Soft. absent: Tenderness - Extremities Exam Extremities exam: pedal pulses present - Neurological Exam Neurological exam: Alert - Skin Skin Exam: Dry, Warm Discharge Plan - Follow Up Plan Condition: GOOD Disposition: HOME/ ROUTINE Instructions: Urinary Tract Infections in Adults, Syncope (Fainting), Preventing Falls in the Older Adult Referrals: Nehemias Cai MD [Primary Care Provider] - <Sai Ham - Last Filed: 12/10/18 17:41> Provider - Provider Date of Admission: 12/04/18 17:23 Attending physician: Sai Ham MD Primary care physician: Nehemias Cai MD Consults: 12/04/18 18:00 Cardiology Consult Routine Comment: Consulting Provider: Dirk Fraser Consulting Physician: Dirk Fraser Reason for Consult: [facility] Neurology Consult Routine Comment: Consulting Provider: Juan Antonio Roa Consulting Physician: Juan Antonio Roa Reason for Consult: [facility] Hospital Course - Hospital Course Hospital Course: Pt seen and examined by me. I have reviewed the note of the medical appointment scheduler and I agree with it. I have discussed the assessment and plan with the resident. I have reviewed the medications and the last labs.
--- NOTE | 2018-12-11 03:24 | DS ---
HISTORY OF PRESENT ILLNESS: The patient was seen and examined. I do agree with the note of the medical lab director. I was involved in the plan of care. The patient is currently comfortable. She is able to ambulate. She is feeling better. She is tolerating her diet. The patient is asking to be discharged home. If the patient's daughter is agreeable, I will discharged the patient home. She is on Lyrica for her neuropathy. She is on prednisone and methotrexate for her rheumatoid arthritis. She had UTI and has been treated with a full course of Vantin. She is going to follow up with her primary care doctor, Dr. Cai. CONDITION: Stable. ACTIVITIES: Increase as tolerated. Sai Ham MD
== END 2018-12-10 13:41 | disposition home or self-care (01) | DRG 312 ==
LOC: TRCU 17:23
PROVIDERS: ADMIT Internal Medicine Nephrology; ATTEND Internal Medicine Nephrology
PROC: F07Z9FZ Gait Training/Functional Ambulation Treatment using Assistive, Adaptive, Supportive or Protective Equipment (ICD-10-PCS; principal; 2018-12-05)
PROC: F07M6ZZ Therapeutic Exercise Treatment of Musculoskeletal System - Whole Body (ICD-10-PCS; 2018-12-05)
PROC: F08Z4ZZ Home Management Treatment (ICD-10-PCS; 2018-12-05)
DX: R55 Syncope and collapse (principal); N39.0 Urinary tract infection, site not specified; M32.9 Systemic lupus erythematosus, unspecified; M06.9 Rheumatoid arthritis, unspecified; I10 Essential (primary) hypertension; B96.89 Other specified bacterial agents as the cause of diseases classified elsewhere; G62.9 Polyneuropathy, unspecified; M15.9 Polyosteoarthritis, unspecified; Z87.440 Personal history of urinary (tract) infections; Z87.891 Personal history of nicotine dependence; Z90.49 Acquired absence of other specified parts of digestive tract; Z93.3 Colostomy status; Z96.652 Presence of left artificial knee joint; Z96.643 Presence of artificial hip joint, bilateral